=== PATIENT | male | born 1965 | race Caucasian/White ===

== ENCOUNTER 2017-10-16 16:05 | Emergency (ER) | payer MEDICAID ==
[~2017-10-16] VITALS: Ht 172.7 cm; Wt 110.7 kg
[~2017-10-16 16:05] MED LIST: CELEXA20 MG PO; CHEWABLE ASPIRI81 MG PO; DEPAKOTE 500MG500 MG PO; GLUCOTROL10 MG PO; LISINOPRIL2.5 MG PO; METFORMIN1000 MG PO; RISPERDAL 1 MG T1 MG PO
--- OUTSIDE RECORDS SUMMARY | 2017-10-16 16:39 | External Medical Summary Rpt | CCD ---
Author Author , LANCE Organization [facility] Address Unknown Phone [email or web address] Care Team Providers Care Subscription Crew Leader Name Role Phone [facility] Unavailable Unavailable NCE SERV, [facility] Unavailable Unavailable [facility], [facility] [place], NORTON Unavailable Unavailable [facility] Unavailable Unavailable PHARMACY, [facility] MORGAN SEKOU, MORGAN Unavailable Unavailable SEKOU [facility], Unavailable [facility]available [facility] Unavailable Unavailable [facility], [facility] Unavailable Unavailable LAB, [facility] Unavailable Unavailable LAB, [facility] [place] Unavailable Unavailable PHARMACY,, [facility], [facility] DEPT, Unavailable Unavailable [facility] DEPT [facility] # [id number], Unavailable Unavailable [facility] # [id number] [facility] Unavailable Unavailable LLC, [facility] EMMICK ROS, EMMICK Unavailable Unavailable [facility] Unavailable Unavailable DIAGNOSTIC SE, [facility] Unavailable Unavailable [facility]OCIATES, [facility] Unavailable Unavailable TRANSPORTATION SER, [facility], [facility], HAPPY Unavailable Unavailable FEET [facility] Un[facility] Unavailable INC, [facility] Unavailable Unavailable SERVICE, [facility] Unavailable Unavailable DEPT, [facility] COMFORT, COMFORT Unavailable Unavailable [facility] TO Unavailable Unavailable [facility], [facility] Unavailable Unavailable [facility]ING [facility], [facility] Un[facility] Un[facility], [facility] Unavailable Unavailable [facility], [facility] Unavailable Unavailable H D, [facility] Unavailable Unavailable [facility], [facility] Unavailable Unavailable IMAGING, [facility] Unavailable Unavailable LLC, [facility] Unavailable Unavailable [place] AMB Unavailable Unavailable SERVICE [facility] AM[facility] SERVICE I Glenn STEWART, Unavailable Unavailable Glenn STEWART TAWNYA, ROSIO TAWNYA Unavailable Unavailable [facility] Unavailable Unavailable [facility], [facility] DEVELOPER EVANGELIST Unavailable Unavailable [facility], LISA Glasgow [facility] DEVELOPER EVANGELIST [facility] Unavailable Unavailable AM[facility]ANCE [facility], [facility], Unavailable Unavailable [facility] Unavailable Unavailable INCORPORAT, [facility] Unavailable Unavailable [facility], [facility], Unavailable Unavailable [facility] Un[facility] CARE, [facility] SCIFRES, SCIFRES Unavailable Unavailable [facility], Unavailable [facility] Unavailable Un[facility]ANS, [facility] Unavailable Unavailable CAVERN, [facility], Unavailable Unavailable [facility], Unavailable Unavailable DENTAL CLINIC [facility] # Unavailable Unavailable [id number], [facility] # [id number] [id number] # Unavailable Unavailable [id number], [id number] # [id number] [facility] Unavailable Unavailable [facility], [facility] Unavailable Unavailable [facility] Purpose Continuity of Care Document - 12-08-2007 through 2016 Problems Code Diagnosis DOS Provider Status R7301 IMPAIRED 09-18-2017 [facility] GLUCOSE LAB D50.8 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-04-2017 deficiency anemias B351 TINEA 08-28-2017 COMFORT UNGUIUM E1140 TYPE 2 DM 08-28-2017 [facility] WITH DIABETIC NEUROPATHY UNSPECIFIED R65098 PAIN IN 08-28-2017 COMFORT RIGHT TOES G24430 PAIN IN 08-28-2017 COMFORT LEFT TOES R300 DYSURIA 08-14-2017 [facility] R410 DISORIENTAT 07-04-2017 ST [facility] UNSPECIFIED PHYSICIANS R69 ILLNESS 07-04-2017 FEDERATED UNSPECIFIED TRANSPORTAT ION SER E1165 TYPE 2 07-03-2017 [facility] MELL[facility]US [facility] WITH HYPERGLYCEM IA E118 TYPE 2 07-03-2017 [facility] W/UNS COMPLICATIO NS E871 HYPO-OSMOLA 07-03-2017 ST LIT[facility] AND JO[facility] HYPONATREMI PHYSICIANS A E87.1 Hypo-osmola 07-01-2017 lity and hyponatremi a E11.65 Type 2 07-01-2017 diabetes mellitus with hyperglycem ia E11.8 Type 2 07-01-2017 diabetes mellitus with unspecified complicatio ns R4182 ALTERED 07-01-2017 [facility] STATUS OF [facility] UNSPECIFIED R55 SYNCOPE AND 07-01-[address] [facility] Z008 ENCOUNTER 07-01-2017 ST FOR OTHER [facility] EXAMINATION H5213 MYOPIA 05-02-2017 [place] BILATERAL H524 PRESBYOPIA 05-02-2017 SCIFRES E119 TYPE 2 03-02-2017 [facility] WITHOUT COMPLICATIO NS D649 ANEMIA 12-12-2016 [facility] UNSPECIFIED PHYSICIANS [place] Z125 ENCOUNTER 12-12-2016 [facility]CREEN[facility] MALIGNANT LA NEOPLASM PROSTATE R7989 OTHER SPEC 10-19-2016 [facility] ABNORMAL URBAN FINDINGS COG[facility]T BLOOD CHEMISTRY Z23 ENCOUNTER 09-03-2016 [facility] IMMUNIZ[facility] DEPT N E51199 OTHER LONG 08-15-2016 [facility] CURRENT DRUG THERAPY Q78765 TYPE 2 05-04-2016 [facility] DI[facility] AT [facility]ERN W/HYPOGLYCE FERNANDO W/O COMA R4781 SLURRED 05-04-2016 [facility] SPEECH AMBULANCE SERVICE H5203 HYPERMETROP 04-24-2016 MORGAN SEKOU IA BILATERAL B24931 REGULAR 04-24-2016 MORGAN SEKOU ASTIGMATISM BILATERAL E039 HYPOTHYROID 09-29-2015 [facility] UNSPECIFIED N400 BENIGN 09-29-2015 [facility] HYPERPLASIA WO LW URIN TRACT SX Z5181 ENCOUNTER 09-29-2015 [facility] THERAPEUTIC DRUG LEVEL MONITORING 49948 DIAB W/O 06-12-2015 [facility] MENTION COMP TYPE II/UNS TYPE UNCNTRL V701 GENERAL 06-09-2015 [facility] EXAMINATION PHYSICIANS, REQUESTED LL AUTHORITY V5869 LONG-TERM 06-08-2015 [facility] (CURRENT) [facility] USE OF OTHER MEDICATIONS 96570 DIAB W/O 03-08-2015 [facility] COMP TYPE DIAGNOSTICS II/UNS NOT INCORPORAT STATED UNCNTRL 4011 ESSENTIAL 03-08-2015 [facility] HYPERTENSIO [facility]NOST[facility] N, BENIGN INCORPORAT V7644 SPECIAL 03-08-2015 [facility]ING [facility] MALIGNANT INCORPORAT NEOPLASM OF PROSTATE 63488 NUCLEAR 03-03-2015 [facility] SCLEROSIS 3670 HYPERMETROP 03-03-2015 OBED NAJERA IA 3674 PRESBYOPIA 03-03-2015 [facility] 92073 DIAB W/OTH 03-01-2015 ROSIO TAWNYA MANIFESTS TYPE II/UNS TYPE UNCNTRL 85297 DIARRHEA 03-01-2015 ROSIO TAWNYA 64259 UNSPECIFIED 09-29-2014 [facility] DUE TO [facility]IRUSES 71937 HORDEOLUM 09-26-2014 [facility] 70415 DO LOC 08-17-2014 ROSIO TAWNYA HYPERPLASIA PROS W/O UR OBST & OTH LUTS 7241 PAIN IN 08-17-2014 [facility] DIAGNOSTIC SE 7242 LUMBAGO 08-17-2014 ROSIO TAWNYA 58136 UNSPECIFIED 03-02-2014 ROSIO TAWNYA URINARY INCONTINENC E 15065 POLYURIA 03-02-2014 ROSIO TAWNYA 78317 REGULAR 08-25-2013 [facility] ASTIGMATISM 68115 REFRACTIVE 08-25-2013 [facility] AMBLYOPIA 00703 08-25-2013 [facility] V6709 FOLLOW-UP 02-25-2013 DENTAL EXAMINATION CLINIC FOLLOWING OTHER SURGERY 8300 CLOSED 01-27-2013 [place] [facility] 8301 OPEN 01-27-2013 [facility]ENTAL DISLOCATION CLINIC OF JAW V5409 OTH 01-27-2013 [facility] INVOLVING F[facility]ATIO INTERNAL FIXATION DEVICE E8497 PLACE OF 01-20-2013 DENTAL OCCURRENCE CLINIC RESIDENTIAL INSTITUTION E9178 STRIKE 01-20-2013 DENTAL AGNST/STRUC CLINIC K ACC OTH STATNRY OBJ W/FALL 35049 OTHER 11-28-2012 [facility] 7224 DEGENERATIO 11-27-2012 [facility] OF [facility] CERVICAL IMAGING INTERVERTEB RAL DISC 61416 DEGEN 11-27-2012 [facility] LUMBAR/LUMB RADIOLOGY OSACRAL IMAGING INTERVERTEB RAL DISC 7231 CERVICALGIA 11-27-2012 [facility] CTR 7245 UNSPECIFIED 11-27-2012 [facility] BACKACHE RADI[facility] IMAGING 9222 CONTUSION 11-27-2012 REG[facility]AL OF MED CTR ABDOMINAL WALL 9599 INJURY 11-27-2012 MEDICAL OTHER AND CENTER AMB UNSPECIFIED SERVICE I UNSPECIFIED SITE E8859 FALL FROM 11-27-2012 MEDICAL OTHER CENTER AMB SLIPPING SERVICE I TRIPPING OR STUMBLING V741 SCREENING 08-19-2012 [place] [place] EXAMINATION [facility] CO FOR H D PULMONARY TUBERCULOSI S 5180 PULMONARY 07-11-2012 [place] [facility] 7220 DISPLCMT 07-11-2012 [place] [facility] C[facility] INTERVERT [facility] DISC WITHOUT MYELOPATHY 8020 NASAL 07-11-2012 [place] [facility], SERV CLOSED FOUNDATIO FRACTURE 13998 INJURY OF 07-11-2012 [place] [facility] NECK OTHER FOUNDATIO AND UNSPECIFIED 79683 OTHER 07-11-2012 [place] [facility] INJURY OF SERV CHEST WALL FOUNDATIO E9889 INJURY 07-11-2012 [place] [facility] UNSPEC SERV MEANS UNDET FOUNDATIO ACC/PRPOSLY INFLICTED 77840 OTHER 04-05-2012 [facility] ALTERATION CO OF AMBULANCE CONSCIOUSNE TAXIN SS 7813 LACK OF 04-05-2012 [facility] COORDINATIO CO N AMBULANCE TAXIN 460 ACUTE 10-15-2011 [facility] ITIS 5269 UNSPECIFIED 10-12-2011 [facility] DISEASE OF CO THE [facility] AMBULANCE TAXIN 57554 OTHER 10-02-2011 [facility] INC DISORDERS V5489 OTHER 10-02-2011 [facility] 2724 OTHER AND 08-28-2011 COMBINED UNSPECIFIED PHYSICIANS LA HYPERLIPIDE FERNANDO 6019 UNSPECIFIED 08-28-2011 [facility] PROSTATITIS LA 318 OTHER 05-24-2011 JOURNEY TO SPECIFIED INDEPENDENT INTELLECTUA LIVIN L DISABILITIE S 2761 HYPOSMOLALI 05-03-2011 [facility] A 56529 UNSPEC 05-03-2011 [facility] PRIMARY WITHOUT CARE RURAL MENTION INTRACT EPILEPSY 8951 TRAUMATIC 05-03-2011 [facility]E AMBULA NCE COMPLICATED SERV 0091 COLITIS 11-09-2009 [facility] ENTERIT&GAS ASSOC[facility]ATES TROENTERIT INF ORIGIN 295 SCHIZOPHREN 12-08-2007 [facility] [place] DISORDERS 298 OTHER 12-08-2007 [facility] [place] PSYCHOSES 7801 HALLUCINATI 12-08-2007 [facility] FIRE DEPT F25.9 Schizoaffec tive disorder, unspecified R45.1 Restlessnes s and agitation Allergies, Adverse Reactions, Alerts Clinical Alert Notifications Alert Diabetes: no eye exam in the last 365 days Diabetes: no lipid panel in the last 365 days Diabetes: no urine protein screening in the last 365 days Medications Na ND Rx Da Fi Fi Am Da Di Ph RX Ph St me C No te ll ll ou ys ag ar # ys at rm s nt no ma ic us Or Da si cy ia de te s n re d IN 50 10 11 1. 30 00 ME Ac VE 45 -1 -0 50 00 D ti GA 80 1- 3- 0 15 CA ve 56 20 20 09 RE JHA [address] 1 09 PH EN AR NA MA CY 23 4 MG /1 .5 ML BE 00 10 11 60 30 00 ME Ac NZ 60 -0 -0 .0 00 D ti TR 32 6- 3- 00 15 CA ve OP 43 20 20 07 RE IN 73 17 17 18 E 2 83 PH ME AR S MA 0. CY 5 MG TA B PACK 00 09 10 90 30 00 ME Ac LO 37 -2 -2 .0 00 D ti PE 80 8- 7- 00 15 CA ve RI 32 20 20 03 RE DO 70 17 17 51 L 1 50 PH 5 AR MG MA CY TA BL ET DO 45 09 10 60 30 00 ME Ac CU 80 -2 -2 .0 00 D ti SA 20 5- 0- 00 14 CA ve TE 48 20 20 99 RE 67 17 17 95 SO 8 40 PH DI AR UM MA CY 10 0 MG SO FT GE L MA 00 09 10 40 5 00 ME Ac PA 90 -2 -2 .0 00 D ti P 41 5- 0- 00 15 CA ve 32 98 20 20 01 RE 5 26 17 17 07 MG 1 12 PH AR TA MA BL CY ET CI 65 09 10 30 30 00 ME Ac TA 86 -2 -2 .0 00 D ti LO 20 5- 0- 00 14 CA ve DE 00 20 20 99 RE AM 70 17 17 95 5 39 PH HB AR R MA 40 CY MG TA BL ET LI 16 09 10 30 30 00 ME Ac SI 72 -2 -2 .0 00 D ti NO 90 5- 0- 00 14 CA ve DE 37 20 20 99 RE IL 71 17 17 95 7 42 PH 10 AR MA MG CY TA BL ET LE 31 09 10 60 30 00 ME Ac VE 72 -2 -2 .0 00 D ti TI 20 5- 0- 00 14 CA ve RA 53 20 20 99 RE CE 71 17 17 95 TA 2 41 PH M AR 50 MA 0 CY MG TA BL ET LO 00 09 10 30 30 00 ME Ac RA 78 -2 -2 .0 00 D ti TA 15 5- 0- 00 14 CA ve DI 07 20 20 99 RE NE 70 17 17 95 1 43 PH 10 AR MA MG CY TA BL ET RI 00 09 10 60 30 00 ME Ac SP 37 -2 -2 .0 00 D ti ER 83 5- 0- 00 14 CA ve ID 51 20 20 99 RE ON 49 17 17 95 E 1 44 PH 4 AR MG MA CY TA BL ET TR 50 09 10 30 30 00 ME Ac AZ 11 -2 -2 .0 00 D ti OD 10 5- 0- 00 14 CA ve ON 43 20 20 99 RE E 40 17 17 95 10 3 45 PH 0 AR MG MA CY TA BL ET LO 00 09 10 30 10 00 ME Ac PE 09 -2 -2 .0 00 D ti RA 30 6- 0- 00 15 CA ve MO 31 20 20 01 RE DE 10 17 17 94 2 1 61 PH AR MG MA CY CA PS UL E BE 00 09 10 56 28 00 ME Ac NZ 60 -1 -0 .0 00 D ti TR 32 1- 6- 00 14 CA ve OP 43 20 20 92 RE IN 73 17 17 80 E 2 28 PH ME AR S MA 0. CY 5 MG TA B IN 50 09 10 1. 30 00 ME Ac VE 45 -1 -0 50 00 D ti GA 80 3- 6- 0 14 CA ve 56 20 20 85 RE JHA [address] 1 12 PH EN AR NA MA CY 23 4 MG /1 .5 ML PACK 00 09 10 42 28 00 ME Ac LO 37 -1 -0 .0 00 D ti PE 80 1- 6- 00 14 CA ve RI 32 20 20 92 RE DO 70 17 17 80 L 1 26 PH 5 AR MG MA CY TA BL ET LI 43 08 09 30 30 00 ME Ac SI 54 -2 -2 .0 00 D ti NO 70 8- 2- 00 14 CA ve DE 35 20 20 85 RE IL 31 17 17 24 1 89 PH 10 AR MA MG CY TA BL ET LO 00 08 09 30 30 00 ME Ac RA 78 -2 -2 .0 00 D ti TA 15 8- 2- 00 14 CA ve DI 07 20 20 85 RE NE 70 17 17 24 1 90 PH 10 AR MA MG CY TA BL ET RI 00 08 09 60 30 00 ME Ac SP 37 -2 -2 .0 00 D ti ER 83 8- 2- 00 14 CA ve ID 51 20 20 85 RE ON 49 17 17 24 E 1 91 PH 4 AR MG MA CY TA BL ET TR 50 08 09 30 30 00 ME Ac AZ 11 -2 -2 .0 00 D ti OD 10 8- 2- 00 14 CA ve ON 43 20 20 85 RE E 40 17 17 25 10 3 07 PH 0 AR MG MA CY TA BL ET CI 65 08 09 30 30 00 ME Ac TA 86 -2 -2 .0 00 D ti LO 20 8- 2- 00 14 CA ve DE 00 20 20 85 RE AM 70 17 17 24 5 85 PH HB AR R MA 40 CY MG TA BL ET DO 45 08 09 60 30 00 ME Ac CU 80 -2 -2 .0 00 D ti SA 20 8- 2- 00 14 CA ve TE 48 20 20 85 RE 67 17 17 24 SO 8 86 PH DI AR UM MA CY 10 0 MG SO FT GE L LE 31 08 09 60 30 00 ME Ac VE 72 -2 -2 .0 00 D ti TI 20 8- 2- 00 14 CA ve RA 53 20 20 85 RE CE 71 17 17 24 TA 2 87 PH M AR 50 MA 0 CY MG TA BL ET LE 31 08 09 60 30 00 ME Ac VE 72 -0 -0 .0 00 D ti TI 20 4- 1- 00 14 CA ve RA 53 20 20 70 RE CE 71 17 17 64 TA 2 86 PH M AR 50 MA 0 CY MG TA BL ET RI 00 08 09 60 30 00 ME Ac SP 37 -0 -0 .0 00 D ti ER 83 5- 1- 00 14 CA ve ID 51 20 20 72 RE ON 39 17 17 53 E 1 95 PH 3 AR MG MA CY TA BL ET DO 45 08 08 60 30 00 ME Ac CU 80 -0 -2 .0 00 D ti SA 20 2- 5- 00 14 CA ve TE 48 20 20 69 RE 67 17 17 35 SO 8 78 PH DI AR UM MA CY 10 0 MG SO FT GE L AZ 50 07 08 6. 5 00 ME Ac IT 11 -2 -1 00 00 D ti HR 10 4- 8- 0 14 CA ve OM 78 20 20 65 RE YC 75 17 17 41 IN 1 71 PH AR 25 MA 0 CY MG TA BL ET RI 00 07 08 60 30 00 ME Ac SP 37 -2 -1 .0 00 D ti ER 83 1- 8- 00 14 CA ve ID 51 20 20 62 RE ON 49 17 17 70 E 1 20 PH 4 AR MG MA CY TA BL ET OX 00 07 08 60 30 00 ME Ac YB 60 -2 -1 .0 00 D ti UT 34 1- 8- 00 14 CA ve YN 97 20 20 62 RE IN 52 17 17 70 5 8 19 PH AR MG MA CY TA BL ET GL 16 07 08 60 30 00 ME Ac IM 72 -1 -0 .0 00 D ti EP 90 2- 4- 00 14 CA ve IR 00 20 20 56 RE ID 20 17 17 57 E 1 57 PH 2 AR MG MA CY TA BL ET TR 50 07 08 30 30 00 ME Ac AZ 11 -1 -0 .0 00 D ti OD 10 2- 4- 00 14 CA ve ON 44 20 20 56 RE E 10 17 17 57 15 1 56 PH 0 AR MG MA CY TA BL ET CI 65 07 08 30 30 00 ME Ac TA 86 -1 -0 .0 00 D ti LO 20 2- 4- 00 14 CA ve DE 00 20 20 56 RE AM 70 17 17 57 5 54 PH HB AR R MA 40 CY MG TA BL ET DI 00 07 08 60 30 00 ME Ac VA 37 -1 -0 .0 00 D ti LP 80 2- 4- 00 14 CA ve RO 47 20 20 56 RE EX 30 17 17 57 1 55 PH SO AR D MA ER CY 50 0 MG TA B LO 00 07 07 30 30 00 ME Ac RA 78 -0 -2 .0 00 D ti TA 15 4- 8- 00 14 CA ve DI 07 20 20 51 RE NE 70 17 17 30 1 31 PH 10 AR MA MG CY TA BL ET LE 31 07 07 60 30 00 ME Ac VE 72 -0 -2 .0 00 D ti TI 20 5- 8- 00 14 CA ve RA 53 20 20 52 RE CE 71 17 17 32 TA 2 17 PH M AR 50 MA 0 CY MG TA BL ET DO 45 07 07 60 30 00 ME Ac CU 80 -0 -2 .0 00 D ti SA 20 3- 8- 00 14 CA ve TE 48 20 20 50 RE 67 17 17 36 SO 8 69 PH DI AR UM MA CY 10 0 MG SO FT GE L RI 00 06 07 60 30 00 ME Ac SP 37 -2 -1 .0 00 D ti ER 83 1- 4- 00 14 CA ve ID 51 20 20 43 RE ON 49 17 17 23 E 1 62 PH 4 AR MG MA CY TA BL ET OX 00 06 07 60 30 00 ME Ac YB 60 -2 -1 .0 00 D ti UT 34 1- 4- 00 14 CA ve YN 97 20 20 43 RE IN 52 17 17 23 5 8 61 PH AR MG MA CY TA BL ET DI 00 06 07 60 30 00 ME Ac VA 37 -1 -0 .0 00 D ti LP 80 3- 7- 00 14 CA ve RO 47 20 20 37 RE EX 30 17 17 99 1 39 PH SO AR D MA ER CY 50 0 MG TA B CI 65 06 07 30 30 00 ME Ac TA 86 -1 -0 .0 00 D ti LO 20 3- 7- 00 14 CA ve DE 00 20 20 37 RE AM 70 17 17 99 5 38 PH HB AR R MA 40 CY MG TA BL ET GL 16 06 07 60 30 00 ME Ac IM 72 -1 -0 .0 00 D ti EP 90 3- 7- 00 14 CA ve IR 00 20 20 37 RE ID 20 17 17 99 E 1 41 PH 2 AR MG MA CY TA BL ET TR 50 06 07 30 30 00 ME Ac AZ 11 -1 -0 .0 00 D ti OD 10 3- 7- 00 14 CA ve ON 44 20 20 37 RE E 10 17 17 99 15 1 40 PH 0 AR MG MA CY TA BL ET IB 55 06 06 90 30 00 ME Ac UP 11 -0 -3 .0 00 D ti RO 10 7- 0- 00 14 CA ve FE 68 20 20 33 RE N 40 17 17 62 80 5 06 PH 0 AR MG MA CY TA BL ET LO 00 06 06 30 30 00 ME Ac RA 78 -0 -3 .0 00 D ti TA 15 7- 0- 00 14 CA ve DI 07 20 20 30 RE NE 70 17 17 88 1 82 PH 10 AR MA MG CY TA BL ET OX 00 05 06 60 30 00 ME Ac YB 60 -2 -1 .0 00 D ti UT 34 4- 6- 00 14 CA ve YN 97 20 20 23 RE IN 52 17 17 89 5 8 40 PH AR MG MA CY TA BL ET DO 45 05 06 60 30 00 ME Ac CU 80 -2 -1 .0 00 D ti SA 20 4- 6- 00 14 CA ve TE 48 20 20 23 RE 67 17 17 89 SO 8 39 PH DI AR UM MA CY 10 0 MG SO FT GE L RI 00 05 06 60 30 00 ME Ac SP 37 -2 -1 .0 00 D ti ER 83 4- 6 00 14 CA ve ID 51 20 20 23 RE ON 49 17 17 89 E 1 41 PH 4 AR MG MA CY TA BL ET CI 65 05 06 30 30 00 ME Ac TA 86 -1 -0 .0 00 D ti LO 20 - 14 CA ve DE 00 20 20 19 RE AM 70 17 17 14 5 32 PH HB AR R MA 40 CY MG TA BL ET TR 50 05 06 30 30 00 ME Ac AZ 11 -1 -0 .0 00 D ti OD 10 14 CA ve ON 44 20 20 19 RE E 10 17 17 14 15 1 34 PH 0 AR MG MA CY TA BL ET GL 16 05 06 60 30 00 ME Ac IM 72 -1 -0 .0 00 D ti EP 90 14 CA ve IR 00 20 20 19 RE ID 20 17 17 14 E 1 35 PH 2 AR MG MA CY TA BL ET LO 00 05 06 30 30 00 ME Ac RA 78 -1 -0 .0 00 D ti TA 15 14 CA ve DI 07 20 20 19 RE NE 70 17 17 14 1 36 PH 10 AR MA MG CY TA BL ET DI 00 05 06 60 30 00 ME Ac VA 37 -1 -0 .0 00 D ti LP 80 9 14 CA ve RO 47 20 20 19 RE EX 30 17 17 14 1 33 PH SO AR D MA ER CY 50 0 MG TA B LE 31 05 06 60 30 00 ME Ac VE 72 -1 -0 .0 00 D ti TI 20 14 CA ve RA 53 20 20 20 RE CE 70 17 17 98 TA 5 46 PH M AR 50 MA 0 CY MG TA BL ET IB 55 05 06 90 30 00 ME Ac UP 11 -0 -0 .0 00 D ti RO 10 9- 2- 00 14 CA ve FE 68 20 20 16 RE N 40 17 17 93 80 5 66 PH 0 AR MG MA CY TA BL ET DO 45 04 05 60 30 00 ME Ac CU 80 -2 -1 .0 00 D ti SA 20 14 CA ve TE 48 20 20 08 RE 67 17 17 91 SO 8 09 PH DI AR UM MA CY 10 0 MG SO FT GE L OX 00 04 05 60 30 00 ME Ac YB 60 -2 -1 .0 00 D ti UT 34 5- 9- 00 14 CA ve YN 97 20 20 08 RE IN 52 17 17 91 5 8 10 PH AR MG MA CY TA BL ET RI 00 04 05 60 30 00 ME Ac SP 37 -2 -1 .0 00 D ti ER 83 5- 9- 00 14 CA ve ID 51 20 20 08 RE ON 49 17 17 91 E 1 11 PH 4 AR MG MA CY TA BL ET LE 31 04 05 60 30 00 ME Ac VE 72 -1 -1 .0 00 D ti TI 20 9- 2- 00 14 CA ve RA 53 20 20 06 RE CE 70 17 17 35 TA 5 68 PH M AR 50 MA 0 CY MG TA BL ET GL 16 04 05 60 30 00 ME Ac IM 72 -1 -1 .0 00 D ti EP 90 7- 2- 00 14 CA ve IR 00 20 20 06 RE ID 20 17 17 27 E 1 59 PH 2 AR MG MA CY TA BL ET CI 65 04 05 30 30 00 ME Ac TA 86 -1 -1 .0 00 D ti LO 20 7- 2- 00 14 CA ve DE 00 20 20 06 RE AM 70 17 17 27 5 57 PH HB AR R MA 40 CY MG TA BL ET DI 00 04 05 60 30 00 ME Ac VA 37 -1 -1 .0 00 D ti LP 80 7- 2- 00 14 CA ve RO 47 20 20 06 RE EX 30 17 17 26 1 95 PH SO AR D MA ER CY 50 0 MG TA B LO 00 04 05 30 30 00 ME Ac RA 78 -1 -1 .0 00 D ti TA 15 7- 2- 00 14 CA ve DI 07 20 20 06 RE NE 70 17 17 26 1 79 PH 10 AR MA MG CY TA BL ET TR 50 04 05 30 30 00 ME Ac AZ 11 -1 -1 .0 00 D ti OD 10 7- 2- 00 14 CA ve ON 44 20 20 06 RE E 10 17 17 26 15 1 96 PH 0 AR MG MA CY TA BL ET IB 55 04 05 90 30 00 ME Ac UP 11 -1 -0 .0 00 D ti RO 10 1- 5- 00 14 CA ve FE 68 20 20 02 RE N 40 17 17 06 80 5 40 PH 0 AR MG MA CY TA BL ET DI 00 03 04 60 30 00 ME Ac VA 37 -2 -2 .0 00 D ti LP 80 3- 1- 00 13 CA ve RO 47 20 20 94 RE EX 30 17 17 26 1 04 PH SO AR D MA ER CY 50 0 MG TA B LO 00 03 04 30 30 00 ME Ac RA 78 -2 -2 .0 00 D ti TA 15 3- - 00 13 CA ve DI 07 20 20 94 RE NE 70 17 17 26 1 02 PH 10 AR MA MG CY TA BL ET TR 50 03 04 30 30 00 ME Ac AZ 11 -2 -2 .0 00 D ti OD 10 3- 1- 00 13 CA ve ON 44 20 20 94 RE E 10 17 17 26 15 1 07 PH 0 AR MG MA CY TA BL ET GL 16 03 04 60 30 00 ME Ac IM 72 -2 -2 .0 00 D ti EP 90 3- 00 13 CA ve IR 00 20 20 94 RE ID 20 17 17 26 E 1 10 PH 2 AR MG MA CY TA BL ET LE 31 03 04 60 30 00 ME Ac VE 72 -2 -2 .0 00 D ti TI 20 3- 00 13 CA ve RA 53 20 20 94 RE CE 70 17 17 26 TA 5 13 PH M AR 50 MA 0 CY MG TA BL ET OX 00 03 04 60 30 00 ME Ac YB 60 -2 -2 .0 00 D ti UT 34 7- 1- 00 13 CA ve YN 97 20 20 94 RE IN 52 17 17 64 5 8 58 PH AR MG MA CY TA BL ET RI 00 03 04 60 30 00 ME Ac SP 37 -2 -2 .0 00 D ti ER 83 7- 1- 00 13 CA ve ID 51 20 20 94 RE ON 49 17 17 64 E 1 59 PH 4 AR MG MA CY TA BL ET DO 45 03 04 60 30 00 ME Ac CU 80 -2 -2 .0 00 D ti SA 20 7 1 13 CA ve TE 48 20 20 94 RE 67 17 17 64 SO 8 57 PH DI AR UM MA CY 10 0 MG SO FT GE L CI 65 03 04 30 30 00 ME Ac TA 86 -2 -1 .0 00 D ti LO 20 1- 4- 00 13 CA ve DE 00 20 20 91 RE AM 70 17 17 76 5 89 PH HB AR R MA 40 CY MG TA BL ET IB 55 03 04 90 30 00 ME Ac UP 11 -1 -0 .0 00 D ti RO 10 5- 7- 00 13 CA ve FE 68 20 20 90 RE N 40 17 17 00 80 5 43 PH 0 AR MG MA CY TA BL ET DI 00 02 03 60 30 00 ME Ac VA 37 -2 -2 .0 00 D ti LP 80 7- 4- 00 13 CA ve RO 47 20 20 81 RE EX 30 17 17 35 1 51 PH SO AR D MA ER CY 50 0 MG TA B GL 16 02 03 60 30 00 ME Ac IM 72 -2 -2 .0 00 D ti EP 90 7- 4 13 CA ve IR 00 20 20 81 RE ID 20 17 17 35 E 1 43 PH 2 AR MG MA CY TA BL ET ME 65 02 03 30 30 00 ME Ac TF 86 -2 -2 .0 00 D ti OR 20 7- 4 13 CA ve MO 00 20 20 81 RE N 89 17 17 35 HC 9 36 PH L AR 50 MA 0 CY MG TA BL ET TR 50 02 03 30 30 00 ME Ac AZ 11 -2 -2 .0 00 D ti OD 10 7- 4 13 CA ve ON 44 20 20 81 RE E 10 17 17 35 15 1 48 PH 0 AR MG MA CY TA BL ET LE 31 02 03 60 30 00 ME Ac VE 72 -2 -2 .0 00 D ti TI 20 7 4 13 CA ve RA 53 20 20 81 RE CE 70 17 17 35 TA 5 46 PH M AR 50 MA 0 CY MG TA BL ET LO 00 02 03 30 30 00 ME Ac RA 78 -2 -2 .0 00 D ti TA 15 7 4 13 CA ve DI 07 20 20 81 RE NE 70 17 17 35 1 40 PH 10 AR MA MG CY TA BL ET RI 00 02 03 60 30 00 ME Ac SP 37 -2 -2 .0 00 D ti ER 83 8- 4- 00 13 CA ve ID 51 20 20 82 RE ON 49 17 17 24 E 1 67 PH 4 AR MG MA CY TA BL ET OX 00 02 03 60 30 00 ME Ac YB 60 -2 -2 .0 00 D ti UT 34 8- 4- 00 13 CA ve YN 97 20 20 82 RE IN 52 17 17 24 5 8 69 PH AR MG MA CY TA BL ET DO 45 02 03 60 30 00 ME Ac CU 80 -2 -2 .0 00 D ti SA 20 8- 4- 00 13 CA ve TE 48 20 20 82 RE 67 17 17 24 SO 8 64 PH DI AR UM MA CY 10 0 MG SO FT GE L CI 65 02 03 30 30 00 ME Ac TA 86 -2 -1 .0 00 D ti LO 20 0- 7- 00 13 CA ve DE 00 20 20 77 RE AM 70 17 17 11 5 29 PH HB AR R MA 40 CY MG TA BL ET IB 55 02 03 90 30 00 ME Ac UP 11 -1 -1 .0 00 D ti RO 10 7- 7- 00 13 CA ve FE 68 20 20 76 RE N 40 17 17 38 80 5 13 PH 0 AR MG MA CY TA BL ET DI 16 01 03 60 30 00 ME Ac VA 71 -0 -0 .0 00 D ti LP 40 2- 3- 00 13 CA ve RO 48 20 20 52 RE EX 50 17 17 99 2 77 PH SO AR D MA ER CY 50 LL 0 C MG TA B TR 50 01 03 30 30 00 ME Ac AZ 11 -0 -0 .0 00 D ti OD 10 2- 3- 00 13 CA ve ON 44 20 20 52 RE E 10 17 17 99 15 1 78 PH 0 AR MG MA CY TA BL LL ET C GL 16 01 03 60 30 00 ME Ac IM 72 -0 -0 .0 00 D ti EP 90 2- 3- 00 13 CA ve IR 00 20 20 52 RE ID 20 17 17 99 E 1 80 PH 2 AR MG MA CY TA BL LL ET C LE 31 01 03 60 30 00 ME Ac VE 72 -0 -0 .0 00 D ti TI 20 2- 3- 00 13 CA ve RA 53 20 20 52 RE CE 71 17 17 99 TA 2 81 PH M AR 50 MA 0 CY MG LL TA C BL ET LO 00 01 03 30 30 00 ME Ac RA 78 -0 -0 .0 00 D ti TA 15 2- 3- 00 13 CA ve DI 07 20 20 52 RE NE 70 17 17 99 1 82 PH 10 AR MA MG CY TA LL BL C ET ME 65 01 03 30 30 00 ME Ac TF 86 -0 -0 .0 00 D ti OR 20 2- 3- 00 13 CA ve MO 00 20 20 52 RE N 89 17 17 99 HC 9 83 PH L AR 50 MA 0 CY MG LL TA C BL ET OX 00 01 03 60 30 00 ME Ac YB 60 -0 -0 .0 00 D ti UT 34 2- 3- 00 13 CA ve YN 97 20 20 52 RE IN 52 17 17 99 5 8 84 PH AR MG MA CY TA BL LL ET C RI 00 01 03 60 30 00 ME Ac SP 37 -0 -0 .0 00 D ti ER 83 2- 3- 00 13 CA ve ID 51 20 20 52 RE ON 49 17 17 99 E 1 85 PH 4 AR MG MA CY TA BL LL ET C DO 45 01 03 60 30 00 ME Ac CU 80 -0 -0 .0 00 D ti SA 20 2- 3 00 13 CA ve TE 48 20 20 52 RE 67 17 17 99 SO 8 79 PH DI AR UM MA CY 10 0 LL MG C SO FT GE L DI 16 02 02 60 30 00 ME Ac VA 71 -0 -2 .0 00 D ti LP 40 4 13 CA ve RO 48 20 20 68 RE EX 50 17 17 09 2 85 PH SO AR D MA ER CY 50 0 MG TA B GL 16 02 02 60 30 00 ME Ac IM 72 -0 -2 .0 00 D ti EP 90 13 CA ve IR 00 20 20 68 RE ID 20 17 17 09 E 1 88 PH 2 AR MG MA CY TA BL ET DO 45 02 02 60 30 00 ME Ac CU 80 -0 -2 .0 00 D ti SA 20 13 CA ve TE 48 20 20 68 RE 67 17 17 09 SO 8 87 PH DI AR UM MA CY 10 0 MG SO FT GE L TR 50 02 02 30 30 00 ME Ac AZ 11 -0 -2 .0 00 D ti OD 10 1 13 CA ve ON 44 20 20 68 RE E 10 17 17 09 15 1 86 PH 0 AR MG MA CY TA BL ET LO 00 02 02 30 30 00 ME Ac RA 78 -0 -2 .0 00 D ti TA 15 1 4- 00 13 CA ve DI 07 20 20 68 RE NE 70 17 17 09 1 90 PH 10 AR MA MG CY TA BL ET ME 65 02 02 30 30 00 ME Ac TF 86 -0 -2 .0 00 D ti OR 20 4 13 CA ve MO 00 20 20 68 RE N 89 17 17 09 HC 9 91 PH L AR 50 MA 0 CY MG TA BL ET RI 00 02 02 60 30 00 ME Ac SP 37 -0 -2 .0 00 D ti ER 83 1- 4- 00 13 CA ve ID 51 20 20 68 RE ON 49 17 17 09 E 1 93 PH 4 AR MG MA CY TA BL ET OX 00 02 02 60 30 00 ME Ac YB 60 -0 -2 .0 00 D ti UT 34 13 CA ve YN 97 20 20 68 RE IN 52 17 17 09 5 8 92 PH AR MG MA CY TA BL ET LE 31 02 02 60 30 00 ME Ac VE 72 -0 -2 .0 00 D ti TI 20 1- 4- 00 13 CA ve RA 53 20 20 68 RE CE 70 17 17 09 TA 5 89 PH M AR 50 MA 0 CY MG TA BL ET CI 65 01 02 30 30 00 ME Ac TA 86 -2 -1 .0 00 D ti LO 20 4- 7- 00 13 CA ve DE 00 20 20 64 RE AM 70 17 17 97 5 20 PH HB AR R MA 40 CY MG LL C TA BL ET IB 55 01 02 90 30 00 ME Ac UP 11 -1 -1 .0 00 D ti RO 10 9- 0- 00 13 CA ve FE 68 20 20 62 RE N 40 17 17 06 80 5 73 PH 0 AR MG MA CY TA BL ET DI 16 12 01 60 30 00 ME Ac VA 71 -0 -2 .0 00 D ti LP 40 5- 7- 00 13 CA ve RO 48 20 20 40 RE EX 50 16 17 45 2 72 PH SO AR D MA ER CY 50 LL 0 C MG TA B OX 00 12 01 60 30 00 ME Ac YB 60 -0 -2 .0 00 D ti UT 34 5- 7- 00 13 CA ve YN 97 20 20 40 RE IN 52 16 17 45 5 8 82 PH AR MG MA CY TA BL LL ET C RI 00 12 01 60 30 00 ME Ac SP 37 -0 -2 .0 00 D ti ER 83 5- 7- 00 13 CA ve ID 51 20 20 40 RE ON 49 16 17 45 E 1 84 PH 4 AR MG MA CY TA BL LL ET C LA 00 12 01 47 [address] 60 -2 -2 3. 00 D ti UL 31 0- 7- 00 13 CA ve OS 37 20 20 0 48 RE E 85 16 17 26 10 8 27 PH AR GM MA /1 CY 5 ML LL C SO MARINA TI ON IB 55 12 01 90 30 00 ME Ac UP 11 -2 -2 .0 00 D ti RO 10 2- 7- 00 13 CA ve FE 68 20 20 49 RE N 40 16 17 12 80 5 12 PH 0 AR MG MA CY TA BL LL ET C CI 65 12 01 30 30 00 ME Ac TA 86 -3 -2 .0 00 D ti LO 20 0- 7- 00 13 CA ve DE 00 20 20 52 RE AM 70 16 17 83 5 78 PH HB AR R MA 40 CY MG LL C TA BL ET TR 50 12 01 30 30 00 ME Ac AZ 11 -0 -2 .0 00 D ti OD 10 5- 7- 00 13 CA ve ON 44 20 20 40 RE E 10 16 17 45 15 1 74 PH 0 AR MG MA CY TA BL LL ET C DO 45 12 01 60 30 00 ME Ac CU 80 -0 -2 .0 00 D ti SA 20 5- 7- 00 13 CA ve TE 48 20 20 40 RE 67 16 17 45 SO 8 75 PH DI AR UM MA CY 10 0 LL MG C SO FT GE L GL 16 12 01 60 30 00 ME Ac IM 72 -0 -2 .0 00 D ti EP 90 5 7 00 13 CA ve IR 00 20 20 40 RE ID 20 16 17 45 E 1 76 PH 2 AR MG MA CY TA BL LL ET C LE 31 12 60 30 00 ME Ac VE 72 -0 -2 .0 00 D ti TI 20 5- 7 00 13 CA ve RA 53 20 20 40 RE CE 71 16 17 45 TA 2 77 PH M AR 50 MA 0 CY MG LL TA C BL ET LO 00 12 01 30 30 00 ME Ac RA 78 -0 -2 .0 00 D ti TA 15 5- 7- 00 13 CA ve DI 07 20 20 40 RE NE 70 16 17 45 1 78 PH 10 AR MA MG CY TA LL BL C ET ME 65 12 01 30 30 00 ME Ac TF 86 -0 -2 .0 00 D ti OR 20 5- 7- 00 13 CA ve MO 00 20 20 40 RE N 89 16 17 45 HC 9 80 PH L AR 50 MA 0 CY MG LL TA C BL ET LE 68 04 06 0 60 30 ME 31 ON Ac VE 00 -1 -2 0. D 03 AN ti TI 10 8- 6- 00 CA 66 ve RA 11 20 20 0 RE 01 DE CE 70 15 15 LAUREN TA 3 PH RA M AR H 50 MA A 0 CY MG LL TA C BL GL ET GO W DI 29 04 06 0 60 30 ME 31 ON Ac VA 30 -1 -2 0. D 03 AN ti LP 00 8- 6- 00 CA 66 ve RO 13 20 20 0 RE 00 DE EX 90 15 15 LAUREN 5 PH RA SO AR H D MA A DR CY 25 LL 0 C MG GL TA GO B W CI 65 06 06 0 30 6 ME 31 ON Ac TA 16 -1 -2 .0 D 02 AN ti LO 20 7- 4- 00 CA 08 ve DE 05 20 20 RE 89 DE AM 25 15 15 LAUREN 0 PH RA HB AR H R MA A 10 CY MG LL C TA GL BL ET GO W NO 00 02 06 0 30 30 ME 30 ON Ac VO 16 -0 -2 .0 D 69 AN ti LO 93 4- 3- 00 CA 47 ve G 69 20 20 RE 37 DE MO 61 15 15 LAUREN X 9 PH RA 70 AR H -3 MA A 0 CY FL EX LL PE C N GL SY RN GO W DE 00 04 06 0 20 14 ME 31 ON Ac OM 59 -0 -2 0. D 02 AN ti ET 15 1- 2- 00 CA 85 ve PACK 30 20 20 0 RE 04 DE ZI 71 15 15 LAUREN NE 0 PH RA AR H 25 MA A CY MG LL TA C BL GL ET GO W IB 53 06 06 0 30 10 ME 31 ON Ac UP 74 -2 -2 0. D 02 AN ti RO 60 2- 2- 00 CA 81 ve FE 46 20 20 0 RE 90 DE N 60 15 15 LAUREN 80 5 PH RA 0 AR H MG MA A CY TA BL LL ET C GL GO W EA 08 02 06 11 10 50 CO 51 ON Ac SY 49 -2 -2 00 MM 17 AN ti 62 0- 2- .0 ON 75 ve TO 81 20 20 00 WE DE UC 80 15 15 AL LAUREN H 1 TH RA SA H FE FA A TY MO LY 28 G PH LA AR NC MA ET CY S , MU 45 06 06 0 22 5 ME 31 ON Ac PI 80 -1 -1 0. D 02 AN ti RO 20 9- 9- 00 CA 54 ve CI 11 20 20 0 RE 00 DE N 22 15 15 LAUREN 2% 2 PH RA AR H OI MA A NT CY ME NT LL C GL GO W HY 00 06 06 0 30 [address] 59 -1 -1 0. D 02 AN ti OC 13 9- 9- 00 CA 55 ve OD 20 20 20 0 RE 90 DE ON 20 15 15 LAUREN -A 5 PH RA CE AR H TA MA A MO CY NO PH LL EN C GL 5- 32 GO 5 W VE 68 06 06 0 12 12 ME 31 ON Ac NL 38 -1 -1 0. D 02 AN ti AF 20 7- 7- 00 CA 08 ve AX 03 20 20 0 RE 82 DE IN 51 15 15 LAUREN E 6 PH RA HC AR H L MA A ER CY 75 LL C MG GL CA GO P W CI 00 06 06 0 70 7 ME 31 ON Ac TA 90 -1 -1 .0 D 02 AN ti LO 46 7- 7- 00 CA 08 ve DE 08 20 20 RE 83 DE AM 56 15 15 LAUREN 1 PH RA HB AR H R MA A 20 CY MG LL C TA GL BL ET GO W LE 00 01 06 0 30 15 ME 31 ON Ac VE 16 -2 -1 .0 D 00 AN ti MO 96 3- 4- 00 CA 30 ve R 43 20 20 RE 17 DE FL 81 15 15 LAUREN EX 0 PH RA TO AR H UC MA A H CY 10 0 LL UN C IT GL S/ ML GO W GL 55 01 06 0 30 30 ME 31 ON Ac IM 11 -2 -1 0. D 00 AN ti EP 10 1- 2- 00 CA 42 ve IR 32 20 20 0 RE 23 DE ID 20 15 15 LAUREN E 1 PH RA 4 AR H MG MA A CY TA BL LL ET C GL GO W DI 29 04 06 0 60 30 ME 31 ON Ac VA 30 -1 -1 0. D 00 AN ti LP 00 8- 2- 00 CA 41 ve RO 14 20 20 0 RE 99 DE EX 00 15 15 LAUREN 5 PH RA SO AR H D MA A DR CY 50 LL 0 C MG GL TA GO B W VE 51 10 06 0 30 30 ME 31 ON Ac SI 24 -0 -1 0. D 00 AN ti CA 80 1- 2- 00 CA 42 ve RE 15 20 20 0 RE 16 DE 10 14 15 LAUREN 10 3 PH RA AR H MG MA A CY TA BL LL ET C GL GO W RI 27 04 06 0 60 30 ME 31 ON Ac SP 24 -1 -1 0. D 00 AN ti ER 10 2- 2- 00 CA 42 ve ID 00 20 20 0 RE 00 DE ON 45 15 15 LAUREN E 0 PH RA 2 AR H MG MA A CY TA BL LL ET C GL GO W ME 53 05 06 0 30 30 ME 30 ON Ac TF 74 -1 -1 0. D 99 AN ti OR 60 3- 1- 00 CA 97 ve MO 17 20 20 0 RE 44 DE N 80 15 15 LAUREN HC 5 PH RA L AR H ER MA A CY 50 0 LL MG C GL TA BL GO ET W ME 68 05 06 0 30 30 ME 30 ON Ac LO 38 -1 -1 0. D 99 AN ti XI 20 3- 0- 00 CA 57 ve CA 05 20 20 0 RE 01 DE M 00 15 15 LAUREN 7. 5 PH RA 5 AR H MG MA A CY TA BL LL ET C GL GO W CI 65 12 06 0 60 6 ME 30 ON Ac TA 16 -1 -0 .0 D 98 AN ti LO 20 5- 5- 00 CA 66 ve DE 05 20 20 RE 91 DE AM 45 14 15 LAUREN 0 PH RA HB AR H R MA A 40 CY MG LL C TA GL BL ET GO W DE 00 04 06 0 20 14 ME 30 ON Ac OM 59 -0 -0 0. D 98 AN ti ET 15 1- 3- 00 CA 74 ve PACK 30 20 20 0 RE 63 DE ZI 71 15 15 LAUREN NE 0 PH RA AR H 25 MA A CY MG LL TA C BL GL ET GO W MA 00 04 06 0 30 5 ME 30 ON Ac PA 90 -0 -0 0. D 98 AN ti P 41 1- 3- 00 CA 74 ve 50 98 20 20 0 RE 78 DE 0 86 15 15 LAUREN MG 1 PH RA AR H TA MA A BL CY ET LL C GL GO W NO 00 05 06 0 12 30 ME 30 ON Ac VO 16 -0 -0 00 D 98 AN ti FI 91 4- 3- .0 CA 74 ve NE 85 20 20 00 RE 79 DE 27 15 15 LAUREN AU 5 PH RA TO AR H CO MA A VE CY R 30 LL G C NE GL ED LE GO W DI 00 04 06 0 20 5 ME 30 ON Ac PH 60 -0 -0 0. D 98 AN ti EN 33 1- 3- 00 CA 74 ve HY 33 20 [address] 93 15 15 LAUREN AM 2 PH RA IN AR H E MA A 25 CY MG LL C CA GL PS UL GO E W LE 00 01 06 0 30 15 ME 30 ON Ac VE 16 -2 -0 .0 D 96 AN ti MO 96 3- 2- 00 CA 06 ve R 43 20 20 RE 47 DE FL 81 15 15 LAUREN EX 0 PH RA TO AR H UC MA A H CY 10 0 LL UN C IT GL S/ ML GO W LE 68 04 05 0 60 30 ME 30 ON Ac VE 00 -1 -2 0. D 96 AN ti TI 10 8- 9- 00 CA 98 ve RA 11 20 20 0 RE 87 DE CE 70 15 15 LAUREN TA 3 PH RA M AR H 50 MA A 0 CY MG LL TA C BL GL ET GO W DI 29 04 05 0 60 30 ME 30 ON Ac VA 30 -1 -2 0. D 96 AN ti LP 00 8- 9- 00 CA 98 ve RO 13 20 20 0 RE 86 DE EX 90 15 15 LAUREN 5 PH RA SO AR H D MA A DR CY 25 LL 0 C MG GL TA GO B W ON 53 02 05 11 10 50 CO 51 ON Ac ET 88 -2 -2 00 MM 17 AN ti OU 50 0- 6- .0 ON 74 ve CH 24 20 20 00 WE DE 45 15 15 AL LAUREN UL 0 TH RA TR H A FA A TE MO ST LY ST PH RI AR PS MA CY , LE 00 01 05 0 30 15 ME 30 ON Ac VE 16 -2 -1 .0 D 94 AN ti MO 96 3- 8- 00 CA 52 ve R 43 20 20 RE 32 DE FL 81 15 15 LAUREN EX 0 PH RA TO AR H UC MA A H CY 10 0 LL UN C IT GL S/ ML GO W VE 51 10 05 0 24 24 ME 30 ON Ac SI 24 -0 -1 0. D 93 AN ti CA 80 1- 5- 00 CA 67 ve RE 15 20 20 0 RE 16 DE 10 14 15 LAUREN 10 3 PH RA AR H MG MA A CY TA BL LL ET C GL GO W RI 27 04 05 0 47 24 ME 30 ON Ac SP 24 -1 -1 0. D 93 AN ti ER 10 2- 5- 00 CA 67 ve ID 00 20 20 0 RE 03 DE ON 45 15 15 LAUREN E 0 PH RA 2 AR H MG MA A CY TA BL LL ET C GL GO W DI 29 04 05 0 60 30 ME 30 ON Ac VA 30 -1 -1 0. D 93 AN ti LP 00 8- 5- 00 CA 67 ve RO 14 20 20 0 RE 02 DE EX 00 15 15 LAUREN 5 PH RA SO AR H D MA A DR CY 50 LL 0 C MG GL TA GO B W GL 55 01 05 0 30 30 ME 30 ON Ac IM 11 -2 -1 0. D 93 AN ti EP 10 1- 5- 00 CA 67 ve IR 32 20 20 0 RE 27 DE ID 20 15 15 LAUREN E 1 PH RA 4 AR H MG MA A CY TA BL LL ET C GL GO W ME 68 05 05 0 30 30 ME 30 ON Ac LO 38 -1 -1 0. D 93 AN ti XI 20 3- 3- 00 CA 52 ve CA 05 20 20 0 RE 88 DE M 00 15 15 LAUREN 7. 5 PH RA 5 AR H MG MA A CY TA BL LL ET C GL GO W ME 53 05 05 0 31 30 ME 30 ON Ac TF 74 -1 -1 0. D 93 AN ti OR 60 3- 3- 00 CA 52 ve MO 17 20 20 0 RE 86 DE N 80 15 15 LAUREN HC 5 PH RA L AR H ER MA A CY 50 0 LL MG C GL TA BL GO ET W LO 00 04 05 0 30 5 ME 30 ON Ac PE 09 -0 -1 0. D 93 AN ti RA 30 1- 2- 00 CA 19 ve MO 31 20 20 0 RE 01 DE DE 10 15 15 LAUREN 2 5 PH RA AR H MG MA A CY CA PS LL UL C E GL GO W CI 65 12 05 0 30 30 ME 30 ON Ac TA 16 -1 -0 0. D 91 AN ti LO 20 5- 8- 00 CA 99 ve DE 05 20 20 0 RE 01 DE AM 45 14 15 LAUREN 0 PH RA HB AR H R MA A 40 CY MG LL C TA GL BL ET GO W LE 00 01 05 0 30 15 ME 30 ON Ac VE 16 -2 -0 .0 D 91 AN ti MO 96 3- 6- 00 CA 80 ve R 43 20 20 RE 49 DE FL 81 15 15 LAUREN EX 0 PH RA TO AR H UC MA A H CY 10 0 LL UN C IT GL S/ ML GO W IB 53 04 05 0 20 5 ME 30 ON Ac UP 74 -0 -0 0. D 91 AN ti RO 60 1- 6- 00 CA 80 ve FE 46 20 20 0 RE 93 DE N 40 15 15 LAUREN 40 5 PH RA 0 AR H MG MA A CY TA BL LL ET C GL GO W NO 00 05 05 0 12 30 ME 30 ON Ac VO 16 -0 -0 00 D 91 AN ti FI 91 4- 4- .0 CA 22 ve NE 85 20 20 00 RE 38 DE 27 15 15 LAUREN AU 5 PH RA TO AR H CO MA A VE CY R 30 LL G C NE GL ED LE GO W EA 08 02 05 11 10 50 CO 51 ON Ac SY 49 -2 -0 00 MM 17 AN ti 62 0- 2- .0 ON 75 ve TO 81 20 20 00 WE DE UC 80 15 15 AL LAUREN H 1 TH RA SA H FE FA A TY MO LY 28 G PH LA AR NC MA ET CY S , DI 29 04 05 0 60 30 ME 30 ON Ac VA 30 -1 -0 0. D 90 AN ti LP 00 8- 1- 00 CA 03 ve RO 13 20 20 0 RE 78 DE EX 90 15 15 LAUREN 5 PH RA SO AR H D MA A DR CY 25 LL 0 C MG GL TA GO B W LE 68 04 05 0 60 30 ME 30 ON Ac VE 00 -1 -0 0. D 90 AN ti TI 10 8- 1- 00 CA 03 ve RA 11 20 20 0 RE 79 DE CE 70 15 15 LAUREN TA 3 PH RA M AR H 50 MA A 0 CY MG LL TA C BL GL ET GO W ME 53 04 04 0 22 11 ME 30 ON Ac TF 74 -0 -2 0. D 89 AN ti OR 60 00 CA 39 ve MO 17 20 20 0 RE 95 DE N 90 15 15 LAUREN HC 1 PH RA L AR H ER MA A CY 75 0 LL MG C GL TA BL GO ET W MA 00 04 04 0 30 5 ME 30 ON Ac PA 90 -0 -2 0. D 89 AN ti P 41 1- 7- 00 CA 55 ve 50 98 20 20 0 RE 83 DE 0 86 15 15 LAUREN MG 1 PH RA AR H TA MA A BL CY ET LL C GL GO W RI 27 04 04 0 60 30 ME 30 ON Ac SP 24 -1 -1 0. D 86 AN ti ER 10 2- 7- 00 CA 80 ve ID 00 20 20 0 RE 33 DE ON 45 15 15 LAUREN E 0 PH RA 2 AR H MG MA A CY TA BL LL ET C GL GO W DI 29 04 04 0 60 30 ME 30 ON Ac VA 30 -1 -1 0. D 86 AN ti LP 00 8 7- 00 CA 80 ve RO 14 20 20 0 RE 32 DE EX 00 14 15 LAUREN 5 PH RA SO AR H D MA A DR CY 50 LL 0 C MG GL TA GO B W GL 00 01 04 0 30 30 ME 30 ON Ac IM 09 2 -1 0. D 86 AN ti EP 37 1- 7- 00 CA 61 ve IR 25 20 20 0 RE 46 DE ID 60 15 15 LAUREN E 1 PH RA 4 AR H MG MA A CY TA BL LL ET C GL GO W VE 51 10 04 0 30 30 ME 30 ON Ac SI 24 -0 -1 0. D 86 AN ti CA 80 1- 7- 00 CA 80 ve RE 15 20 20 0 RE 46 DE 10 14 15 LAUREN 10 3 PH RA AR H MG MA A CY TA BL LL ET C GL GO W IB 53 04 04 0 20 5 ME 30 ON Ac UP 74 -0 -1 0. D 86 AN ti RO 60 1- 6- 00 CA 95 ve FE 46 20 20 0 RE 63 DE N 40 15 15 LAUREN 40 5 PH RA 0 AR H MG MA A CY TA BL LL ET C GL GO W LE 00 01 04 0 30 15 ME 30 ON Ac VE 16 -2 -1 .0 D 86 AN ti MO 96 3- 4- 00 CA 42 ve R 43 20 20 RE 13 DE FL 81 15 15 LAUREN EX 0 PH RA TO AR H UC MA A H CY 10 0 LL UN C IT GL S/ ML GO W CI 65 12 04 0 30 30 ME 30 ON Ac TA 16 -1 -1 0. D 84 AN ti LO 20 5- 0- 00 CA 88 ve DE 05 20 20 0 RE 79 DE AM 45 14 15 LAUREN 0 PH RA HB AR H R MA A 40 CY MG LL C TA GL BL ET GO W ON 53 02 04 11 50 25 CO 51 ON Ac ET 88 -2 -0 0. MM 17 AN ti OU 50 0- 9- 00 ON 74 ve CH 24 20 20 0 WE DE 45 15 15 AL LAUREN UL 0 TH RA TR H A FA A TE MO ST LY ST PH RI AR PS MA CY , LE 00 01 04 0 30 13 ME 30 ON Ac VE 16 -2 -0 .0 D 66 AN ti MO 96 3- 4- 00 CA 69 ve R 43 20 20 RE 11 DE FL 81 15 15 LAUREN EX 0 PH RA TO AR H UC MA A H CY 10 0 LL UN C IT GL S/ ML GO W DI 29 04 04 0 60 30 ME 30 ON Ac VA 30 -1 -0 0. D 82 AN ti LP 00 8- 2- 00 CA 94 ve RO 13 20 20 0 RE 27 DE EX 90 14 15 LAUREN 5 PH RA SO AR H D MA A DR CY 25 LL 0 C MG GL TA GO B W LE 68 04 04 0 60 30 ME 30 ON Ac VE 00 -1 -0 0. D 82 AN ti TI 10 8- 2- 00 CA 94 ve RA 11 20 20 0 RE 28 DE CE 70 14 15 LAUREN TA 3 PH RA M AR H 50 MA A 0 CY MG LL TA C BL GL ET GO W ME 53 04 04 0 60 30 ME 30 ON Ac TF 74 -0 -0 0. D 83 AN ti OR 60 1- 1- 00 CA 39 ve MO 17 20 20 0 RE 56 DE N 90 15 15 LAUREN HC 1 PH RA L AR H ER MA A CY 75 0 LL MG C GL TA BL GO ET W IB 53 04 03 0 20 5 ME 30 ON Ac UP 74 -0 -2 0. D 81 AN ti RO 60 1- 5- 00 CA 65 ve FE 46 20 20 0 RE 09 DE N 40 14 15 LAUREN 40 5 PH RA 0 AR H MG MA A CY TA BL LL ET C GL GO W EA 08 03 03 0 10 50 CO 51 ON Ac SY 49 -2 -2 00 MM 23 AN ti 63 0- 0- .0 ON 89 ve TO 10 20 20 00 WE DE UC 10 15 15 AL LAUREN H 1 TH RA PE H N FA A NE MO ED LY LE PH 31 AR GX MA 3/ CY 16 , RI 27 04 03 0 60 30 ME 30 ON Ac SP 24 -1 -2 0. D 80 AN ti ER 10 2- 0- 00 CA 07 ve ID 00 20 20 0 RE 02 DE ON 40 14 15 LAUREN E 6 PH RA 2 AR H MG MA A CY TA BL LL ET C GL GO W DI 29 04 03 0 60 30 ME 30 ON Ac VA 30 -1 -2 0. D 80 AN ti LP 00 8- 0- 00 CA 07 ve RO 14 20 20 0 RE 01 DE EX 00 14 15 LAUREN 5 PH RA SO AR H D MA A DR CY 50 LL 0 C MG GL TA GO B W VE 51 10 03 0 30 30 ME 30 ON Ac SI 24 -0 -2 0. D 79 AN ti CA 80 1- 0- 00 CA 78 ve RE 15 20 20 0 RE 53 DE 10 14 15 LAUREN 10 3 PH RA AR H MG MA A CY TA BL LL ET C GL GO W ME 53 01 03 0 42 10 ME 30 ON Ac TF 74 -2 -1 0. D 79 AN ti OR 60 1- 9- 00 CA 45 ve MO 17 20 20 0 RE 75 DE N 80 15 15 LAUREN HC 5 PH RA L AR H ER MA A CY 50 0 LL MG C GL TA BL GO ET W GL 00 01 03 0 30 30 ME 30 ON Ac IM 09 -2 -1 0. D 79 AN ti EP 37 1- 9- 00 CA 45 ve IR 25 20 20 0 RE 76 DE ID 60 15 15 LAUREN E 1 PH RA 4 AR H MG MA A CY TA BL LL ET C GL GO W EA 08 02 03 11 10 50 CO 51 ON Ac SY 49 -2 -1 00 MM 17 AN ti 62 0- 6- .0 ON 75 ve TO 81 20 20 00 WE DE UC 80 15 15 AL LAUREN H 1 TH RA SA H FE FA A TY MO LY 28 G PH LA AR NC MA ET CY S , ON 53 02 03 11 50 25 CO 51 ON Ac ET 88 -2 -1 0. MM 17 AN ti OU 50 0- 6- 00 ON 74 ve CH 24 20 20 0 WE DE 45 15 15 AL LAUREN UL 0 TH RA TR H A FA A TE MO ST LY ST PH RI AR PS MA CY , CI 65 12 03 0 30 30 ME 30 ON Ac TA 16 -1 -1 0. D 77 AN ti LO 20 5- 2- 00 CA 77 ve DE 05 20 20 0 RE 04 DE AM 45 14 15 LAUREN 0 PH RA HB AR H R MA A 40 CY MG LL C TA GL BL ET GO W LE 68 04 03 0 60 30 ME 30 ON Ac VE 00 -1 -0 0. D 75 AN ti TI 10 8- 4- 00 CA 66 ve RA 11 20 20 0 RE 75 DE CE 70 14 15 LAUREN TA 3 PH RA M AR H 50 MA A 0 CY MG LL TA C BL GL ET GO W DI 29 04 03 0 60 30 ME 30 ON Ac VA 30 -1 -0 0. D 75 AN ti LP 00 8- 4- 00 CA 66 ve RO 13 20 20 0 RE 74 DE EX 90 14 15 LAUREN 5 PH RA SO AR H D MA A DR CY 25 LL 0 C MG GL TA GO B W LO 00 04 03 0 30 5 ME 30 ON Ac PE 09 -0 -0 0. D 76 AN ti RA 30 1- 4- 00 CA 55 ve MO 31 20 20 0 RE 32 DE DE 10 14 15 LAUREN 2 5 PH RA AR H MG MA A CY CA PS LL UL C E GL GO W DE 00 04 02 0 20 14 ME 30 ON Ac OM 59 -0 -2 0. D 74 AN ti ET 15 1- 5- 00 CA 83 ve PACK 30 20 20 0 RE 25 DE ZI 71 14 15 LAUREN NE 0 PH RA AR H 25 MA A CY MG LL TA C BL GL ET GO W NO 00 01 02 5 15 15 CO 51 ON Ac VO 16 -2 -2 0. 0 MM 12 AN ti LO 93 6- 3- 00 ON 19 ve G 69 20 20 0 WE DE MO 61 15 15 AL LAUREN X 9 TH RA 70 H -3 FA A 0 MO FL LY EX PE PH N AR SY MA RN CY , DI 29 04 02 0 60 30 ME 30 ON Ac VA 30 -1 -2 0. D 73 AN ti LP 00 8- 0- 00 CA 14 ve RO 14 20 20 0 RE 02 DE EX 00 14 15 LAUREN 5 PH RA SO AR H D MA A DR CY 50 LL 0 C MG GL TA GO B W RI 68 04 02 0 60 30 ME 30 ON Ac SP 38 -1 -2 0. D 73 AN ti ER 20 2- 0- 00 CA 14 ve ID 11 20 20 0 RE 03 DE ON 51 14 15 LAUREN E 4 PH RA 2 AR H MG MA A CY TA BL LL ET C GL GO W ON 53 02 02 11 50 25 CO 51 ON Ac ET 88 -2 -2 0. MM 17 AN ti OU 50 0- 0- 00 ON 74 ve CH 24 20 20 0 WE DE 45 15 15 AL LAUREN UL 0 TH RA TR H A FA A TE MO ST LY ST PH RI AR PS MA CY , VE 51 10 02 0 30 30 ME 30 ON Ac SI 24 -0 -1 0. D 72 AN ti CA 80 1- 9- 00 CA 72 ve RE 15 20 20 0 RE 01 DE 10 14 15 LAUREN 10 3 PH RA AR H MG MA A CY TA BL LL ET C GL GO W GL 00 01 02 0 30 30 ME 30 ON Ac IM 09 -2 -1 0. D 72 AN ti EP 37 1- 8- 00 CA 34 ve IR 25 20 20 0 RE 64 DE ID 60 15 15 LAUREN E 1 PH RA 4 AR H MG MA A CY TA BL LL ET C GL GO W ME 53 01 02 0 12 30 ME 30 ON Ac TF 74 -2 -1 00 D 72 AN ti OR 60 1- 8- .0 CA 34 ve MO 17 20 20 00 RE 63 DE N 80 15 15 LAUREN HC 5 PH RA L AR H ER MA A CY 50 0 LL MG C GL TA BL GO ET W CI 65 12 02 0 30 30 ME 30 ON Ac TA 16 -1 -1 0. D 70 AN ti LO 20 5- 1- 00 CA 47 ve DE 05 20 20 0 RE 40 DE AM 45 14 15 LAUREN 0 PH RA HB AR H R MA A 40 CY MG LL C TA GL BL ET GO W LE 68 04 02 0 60 30 ME 30 ON Ac VE 00 -1 -0 0. D 67 AN ti TI 10 8- 2- 00 CA 60 ve RA 11 20 20 0 RE 59 DE CE 70 14 15 LAUREN TA 3 PH RA M AR H 50 MA A 0 CY MG LL TA C BL GL ET GO W DI 29 04 02 0 60 30 ME 30 ON Ac VA 30 -1 -0 0. D 67 AN ti LP 00 8- 2- 00 CA 60 ve RO 13 20 20 0 RE 58 DE EX 90 14 15 LAUREN 5 PH RA SO AR H D MA A DR CY 25 LL 0 C MG GL TA GO B W NO 00 01 01 0 30 30 ME 30 ON Ac VO 16 -2 -2 .0 D 66 AN ti LO 93 3- 6- 00 CA 69 ve G 69 20 20 RE 99 DE MO 61 15 15 LAUREN X 9 PH RA 70 AR H -3 MA A 0 CY FL EX LL PE C N GL SY RN GO W EA 08 01 01 0 10 50 CO 51 ON Ac SY 49 -2 -2 00 MM 11 AN ti 63 1- 4- .0 ON 64 ve TO 10 20 20 00 WE DE UC 10 15 15 AL LAUREN H 1 TH RA PE H N FA A NE MO ED LY LE PH 31 AR GX MA 3/ CY 16 , RI 68 04 01 0 60 30 ME 30 ON Ac SP 38 -1 -2 0. D 66 AN ti ER 20 2- 3- 00 CA 10 ve ID 11 20 20 0 RE 74 DE ON 51 14 15 LAUREN E 4 PH RA 2 AR H MG MA A CY TA BL LL ET C GL GO W DI 29 04 01 0 60 30 ME 30 ON Ac VA 30 -1 -2 0. D 66 AN ti LP 00 8- 3- 00 CA 10 ve RO 14 20 20 0 RE 73 DE EX 00 14 15 LAUREN 5 PH RA SO AR H D MA A DR CY 50 LL 0 C MG GL TA GO B W LE 00 01 01 0 15 90 CO 51 ON Ac VE 16 -2 -2 0. MM 11 AN ti MO 96 1- 3- 00 ON 63 ve R 43 20 20 0 WE DE FL 81 15 15 AL LAUREN EX 0 TH RA TO H UC FA A H MO 10 LY 0 UN PH IT AR S/ MA ML CY , ME 60 01 01 0 12 30 ME 30 ON Ac TF 50 -2 -2 00 D 66 AN ti OR 50 1- 1- .0 CA 20 ve MO 26 20 20 00 RE 13 DE N 00 15 15 LAUREN HC 2 PH RA L AR H ER MA A CY 50 0 LL MG C GL TA BL GO ET W GL 00 01 01 0 30 30 ME 30 ON Ac IM 09 -2 -2 0. D 66 AN ti EP 37 1- 1- 00 CA 20 ve IR 25 20 20 0 RE 30 DE ID 60 15 15 LAUREN E 1 PH RA 4 AR H MG MA A CY TA BL LL ET C GL GO W VE 51 10 01 0 30 30 ME 30 ON Ac SI 24 -0 -2 0. D 65 AN ti CA 80 1- 1- 00 CA 29 ve RE 15 20 20 0 RE 24 DE 10 14 15 LAUREN 10 3 PH RA AR H MG MA A CY TA BL LL ET C GL GO W EA 08 01 01 0 10 50 CO 51 ON Ac SY 49 -1 -1 00 MM 09 AN ti 62 6- 6- .0 ON 88 ve TO 81 20 20 00 WE DE UC 80 15 15 AL LAUREN H 1 TH RA SA H FE FA A TY MO LY 28 G PH LA AR NC MA ET CY S , HU 00 01 01 0 10 28 ME 30 ON Ac MU 00 -1 -1 0. D 64 AN ti LI 28 6- 6- 00 CA 94 ve N 21 20 20 0 RE 30 DE R 50 15 15 LAUREN 10 1 PH RA 0 AR H UN MA A IT CY S/ ML LL C GL AL GO W ON 53 01 01 0 10 7 CO 51 ON Ac ET 88 -1 -1 .0 MM 09 AN ti OU 50 4- 6- 00 ON 84 ve CH 44 20 20 WE DE 80 15 15 AL LAUREN UL 1 TH RA TR H A2 FA A MO GL LY UC OS PH E AR SY MA ST CY , ON 53 01 01 0 50 25 CO 51 ON Ac ET 88 -1 -1 0. MM 09 AN ti OU 50 6- 6- 00 ON 86 ve CH 24 20 20 0 WE DE 45 15 15 AL LAUREN UL 0 TH RA TR H A FA A TE MO ST LY ST PH RI AR PS MA CY , GL 55 01 01 0 14 14 ME 30 ON Ac IM 11 -1 -1 0. D 64 AN ti EP 10 6- 6- 00 CA 94 ve IR 32 20 20 0 RE 27 DE ID 10 15 15 LAUREN E 5 PH RA 2 AR H MG MA A CY TA BL LL ET C GL GO W ME 60 01 01 0 20 1 ME 30 ON Ac TF 50 -1 -1 .0 D 64 AN ti OR 50 5- 5- 00 CA 89 ve MO 26 20 20 RE 01 DE N 00 15 15 LAUREN HC 2 PH RA L AR H ER MA A CY 50 0 LL MG C GL TA BL GO ET W ME 60 01 01 0 20 1 ME 30 ON Ac TF 50 -1 -1 .0 D 64 AN ti OR 50 4- 4- 00 CA 86 ve MO 26 20 20 RE 60 DE N 00 15 15 LAUREN HC 2 PH RA L AR H ER MA A CY 50 0 LL MG C GL TA BL GO ET W CI 65 12 01 0 30 30 ME 30 ON Ac TA 16 -1 -1 0. D 62 AN ti LO 20 5- 2- 00 CA 74 ve DE 05 20 20 0 RE 47 DE AM 45 14 15 LAUREN 0 PH RA HB AR H R MA A 40 CY MG LL C TA GL BL ET GO W DI 29 04 01 0 60 30 ME 30 ON Ac VA 30 -1 -0 0. D 60 AN ti LP 00 8- 3- 00 CA 46 ve RO 13 20 20 0 RE 65 DE EX 90 14 15 LAUREN 5 PH RA SO AR H D MA A DR CY 25 LL 0 C MG GL TA GO B W LE 68 04 01 0 60 30 ME 30 ON Ac VE 00 -1 -0 0. D 60 AN ti TI 10 8- 3- 00 CA 46 ve RA 11 20 20 0 RE 52 DE CE 70 14 15 LAUREN TA 3 PH RA M AR H 50 MA A 0 CY MG LL TA C BL GL ET GO W AZ 00 12 12 0 60 5 ME 30 ON Ac IT 78 -2 -2 .0 D 59 AN ti HR 11 6- 6- 00 CA 45 ve OM 49 20 20 RE 20 DE YC 66 14 14 LAUREN IN 8 PH RA AR H 25 MA A 0 CY MG LL TA C BL GL ET GO W TA 00 12 12 0 10 5 ME 30 ON Ac MO 00 -2 -2 0. D 59 AN ti FL 40 6- 6- 00 CA 45 ve U 80 20 20 0 RE 24 DE 75 08 14 14 LAUREN 5 PH RA MG AR H MA A CA CY PS UL LL E C GL GO W RI 68 04 12 0 26 13 ME 30 ON Ac SP 38 -1 -2 0. D 58 AN ti ER 20 2- 6- 00 CA 27 ve ID 11 20 20 0 RE 60 DE ON 51 14 14 LAUREN E 4 PH RA 2 AR H MG MA A CY TA BL LL ET C GL GO W DI 29 04 12 0 40 20 ME 30 ON Ac VA 30 -1 -2 0. D 58 AN ti LP 00 8- 6- 00 CA 27 ve RO 14 20 20 0 RE 58 DE EX 00 14 14 LAUREN 5 PH RA SO AR H D MA A DR CY 50 LL 0 C MG GL TA GO B W VE 51 10 12 0 30 30 ME 30 ON Ac SI 24 -0 -2 0. D 56 AN ti CA 80 1- 2- 00 CA 81 ve RE 15 20 20 0 RE 80 DE 10 14 14 LAUREN 10 3 PH RA AR H MG MA A CY TA BL LL ET C GL GO W DI 00 04 12 0 20 5 ME 30 ON Ac PH 60 -0 -1 0. D 57 AN ti EN 33 1- 7- 00 CA 05 ve HY 33 20 [address] 93 14 14 LAUREN AM 2 PH RA IN AR H E MA A 25 CY MG LL C CA GL PS UL GO E W HY 00 12 12 0 48 16 ME [address] 18 -1 -1 0. D 56 AN ti OX 50 5- 5- 00 CA 37 ve YZ 67 20 20 0 RE 27 DE IN 40 14 14 LAUREN E 5 PH RA PA AR H M MA A 25 CY MG LL C CA GL P GO W CI 65 12 12 0 30 30 ME 30 ON Ac TA 16 -1 -1 0. D 56 AN ti LO 20 5- 5- 00 CA 36 ve DE 05 20 20 0 RE 06 DE AM 45 14 14 LAUREN 0 PH RA HB AR H R MA A 40 CY MG LL C TA GL BL ET GO W IB 53 04 12 0 20 5 ME 30 ON Ac UP 74 -0 -0 0. D 54 AN ti RO 60 1- 9- 00 CA 86 ve FE 46 20 20 0 RE 63 DE N 40 14 14 LAUREN 40 5 PH RA 0 AR H MG MA A CY TA BL LL ET C GL GO W LE 68 04 12 0 60 30 ME 30 ON Ac VE 00 -1 -0 0. D 53 AN ti TI 10 8- 5- 00 CA 48 ve RA 11 20 20 0 RE 60 DE CE 70 14 14 LAUREN TA 3 PH RA M AR H 50 MA A 0 CY MG LL TA C BL GL ET GO W DI 29 04 12 0 60 30 ME 30 ON Ac VA 30 -1 -0 0. D 53 AN ti LP 00 8- 5- 00 CA 61 ve RO 13 20 20 0 RE 03 DE EX 90 14 14 LAUREN 5 PH RA SO AR H D MA A DR CY 25 LL 0 C MG GL TA GO B W DI 29 04 11 0 60 30 ME 30 ON Ac VA 30 -1 -2 0. D 51 AN ti LP 00 8- 8- 00 CA 54 ve RO 14 20 20 0 RE 43 DE EX 00 14 14 LAUREN 5 PH RA SO AR H D MA A DR CY 50 LL 0 C MG GL TA GO B W RI 68 04 11 0 60 30 ME 30 ON Ac SP 38 -1 -2 0. D 51 AN ti ER 20 2- 8- 00 CA 54 ve ID 11 20 20 0 RE 44 DE ON 51 14 14 LAUREN E 4 PH RA 2 AR H MG MA A CY TA BL LL ET C GL GO W CI 65 05 11 0 60 3 ME 30 ON Ac TA 16 -1 -2 .0 D 51 AN ti LO 20 3- 8- 00 CA 54 ve DE 05 20 20 RE 47 DE AM 45 14 14 LAUREN 0 PH RA HB AR H R MA A 40 CY MG LL C TA GL BL ET GO W VE 51 10 11 0 30 30 ME 30 ON Ac SI 24 -0 -2 0. D 50 AN ti CA 80 1- 2- 00 CA 14 ve RE 15 20 20 0 RE 51 DE 10 14 14 LAUREN 10 3 PH RA AR H MG MA A CY TA BL LL ET C GL GO W HY 00 09 11 0 30 5 ME [address] 60 -1 -2 0. D 49 AN ti OC 33 7- 0- 00 CA 89 ve OD 89 20 20 0 RE 31 DE ON 03 14 14 LAUREN -A 2 PH RA CE AR H TA MA A MO CY NO PH LL EN C GL 5- 32 GO 5 W DI 29 04 11 0 60 30 ME 30 ON Ac VA 30 -1 -0 0. D 46 AN ti LP 00 8- 7- 00 CA 05 ve RO 13 20 20 0 RE 42 DE EX 90 14 14 LAUREN 5 PH RA SO AR H D MA A DR CY 25 LL 0 C MG GL TA GO B W LE 68 04 11 0 60 30 ME 30 ON Ac VE 00 -1 -0 0. D 45 AN ti TI 10 8- 6- 00 CA 75 ve RA 11 20 20 0 RE 45 DE CE 70 14 14 LAUREN TA 3 PH RA M AR H 50 MA A 0 CY MG LL TA C BL GL ET GO W DI 00 04 11 0 20 5 ME 30 ON Ac PH 60 -0 -0 0. D 45 AN ti EN 33 1- 3- 00 CA 30 ve HY 33 20 [address] 93 14 14 LAUREN AM 2 PH RA IN AR H E MA A 25 CY MG LL C CA GL PS UL GO E W DI 29 04 10 0 60 30 ME 30 ON Ac VA 30 -1 -3 0. D 44 AN ti LP 00 8- 1- 00 CA 45 ve RO 14 20 20 0 RE 91 DE EX 00 14 14 LAUREN 5 PH RA SO AR H D MA A DR CY 50 LL 0 C MG GL TA GO B W CI 65 05 10 0 15 30 ME 30 ON Ac TA 16 -1 -3 0. D 44 AN ti LO 20 3- 1- 00 CA 56 ve DE 05 20 20 0 RE 66 DE AM 45 14 14 LAUREN 0 PH RA HB AR H R MA A 40 CY MG LL C TA GL BL ET GO W RI 68 04 10 0 60 30 ME 30 ON Ac SP 38 -1 -3 0. D 44 AN ti ER 20 2- 1- 00 CA 56 ve ID 11 20 20 0 RE 63 DE ON 51 14 14 LAUREN E 4 PH RA 2 AR H MG MA A CY TA BL LL ET C GL GO W VE 51 10 10 0 30 30 ME 30 ON Ac SI 24 -0 -2 0. D 43 AN ti CA 80 1- 9- 00 CA 76 ve RE 15 20 20 0 RE 68 DE 10 14 14 LAUREN 10 3 PH RA AR H MG MA A CY TA BL LL ET C GL GO W JHA 53 10 10 0 20 10 ME 30 WA Ac LF 74 -2 -[address] ti AM 60 0- 0- 00 CA 12 ve ET 27 20 20 0 RE 81 AL HO 20 14 14 BE XA 5 PH RT ZO AR F LE MA -T CY MP LL DS C GL TA BL GO ET W DI 29 04 10 0 60 30 ME 30 ON Ac VA 30 -1 -0 0. D 38 AN ti LP 00 8- 9- 00 CA 69 ve RO 13 20 20 0 RE 69 DE EX 90 14 14 LAUREN 5 PH RA SO AR H D MA A DR CY 25 LL 0 C MG GL TA GO B W LE 68 04 10 0 60 30 ME 30 ON Ac VE 00 -1 -0 0. D 38 AN ti TI 10 8- 8- 00 CA 39 ve RA 11 20 20 0 RE 79 DE CE 70 14 14 LAUREN TA 3 PH RA M AR H 50 MA A 0 CY MG LL TA C BL GL ET GO W DI 29 04 10 0 60 30 ME 30 ON Ac VA 30 -1 -0 0. D 36 AN ti LP 00 8- 4- 00 CA 71 ve RO 14 20 20 0 RE 19 DE EX 00 14 14 LAUREN 5 PH RA SO AR H D MA A DR CY 50 LL 0 C MG GL TA GO B W RI 68 04 10 0 60 30 ME 30 ON Ac SP 38 -1 -0 0. D 37 AN ti ER 20 2- 3- 00 CA 52 ve ID 11 20 20 0 RE 57 DE ON 51 14 14 LAUREN E 4 PH RA 2 AR H MG MA A CY TA BL LL ET C GL GO W CI 65 05 10 0 15 30 ME 30 ON Ac TA 16 -1 -0 0. D 37 AN ti LO 20 3- 3- 00 CA 39 ve DE 05 20 20 0 RE 80 DE AM 45 14 14 LAUREN 0 PH RA HB AR H R MA A 40 CY MG LL C TA GL BL ET GO W VE 51 10 10 0 30 30 ME 30 ON Ac SI 24 -0 -0 0. D 37 AN ti CA 80 1- 1- 00 CA 57 ve RE 15 20 20 0 RE 33 DE 10 14 14 LAUREN 10 3 PH RA AR H MG MA A CY TA BL LL ET C GL GO W HY 00 09 09 0 30 5 ME [address] 59 -1 -1 0. D 34 AN ti OC 13 7- 7- 00 CA 18 ve OD 20 20 20 0 RE 79 DE ON 20 14 14 LAUREN -A 5 PH RA CE AR H TA MA A MO CY NO PH LL EN C GL 5- 32 GO 5 W IB 53 04 09 0 20 5 ME 30 ON Ac UP 74 -0 -1 0. D 33 AN ti RO 60 1- 5- 00 CA 11 ve FE 46 20 20 0 RE 85 DE N 40 14 14 LAUREN 40 5 PH RA 0 AR H MG MA A CY TA BL LL ET C GL GO W DI 29 04 09 0 60 30 ME 30 ON Ac VA 30 -1 -1 0. D 31 AN ti LP 00 8- 0- 00 CA 52 ve RO 14 20 20 0 RE 19 DE EX 00 14 14 LAUREN 5 PH RA SO AR H D MA A DR CY 50 LL 0 C MG GL TA GO B W LE 68 04 09 0 60 30 ME 30 ON Ac VE 00 -1 -0 0. D 30 AN ti TI 10 8- 8- 00 CA 92 ve RA 11 20 20 0 RE 76 DE CE 70 14 14 LAUREN TA 3 PH RA M AR H 50 MA A 0 CY MG LL TA C BL GL ET GO W RI 68 04 09 0 60 30 ME 30 ON Ac SP 38 -1 -0 0. D 30 AN ti ER 20 2- 5- 00 CA 57 ve ID 11 20 20 0 RE 22 DE ON 51 14 14 LAUREN E 4 PH RA 2 AR H MG MA A CY TA BL LL ET C GL GO W CI 65 05 09 0 15 30 ME 30 ON Ac TA 16 -1 -0 0. D 29 AN ti LO 20 3- 4- 00 CA 93 ve DE 05 20 20 0 RE 40 DE AM 45 14 14 LAUREN 0 PH RA HB AR H R MA A 40 CY MG LL C TA GL BL ET GO W LO 00 04 09 0 30 5 ME 30 ON Ac PE 09 -0 -0 0. D 30 AN ti RA 30 1- 2- 00 CA 07 ve MO 31 20 20 0 RE 61 DE DE 10 14 14 LAUREN 2 5 PH RA AR H MG MA A CY CA PS LL UL C E GL GO W IB 53 04 08 0 20 5 ME 30 ON Ac UP 74 -0 -1 0. D 25 AN ti RO 60 1- 3- 00 CA 22 ve FE 46 20 20 0 RE 28 DE N 40 14 14 LAUREN 40 5 PH RA 0 AR H MG MA A CY TA BL LL ET C GL GO W LE 68 04 08 0 60 30 ME 30 ON Ac VE 00 -1 -1 0. D 20 AN ti TI 10 8- 1- 00 CA 51 ve RA 11 20 20 0 RE 40 DE CE 70 14 14 LAUREN TA 3 PH RA M AR H 50 MA A 0 CY MG LL TA C BL GL ET GO W DI 29 04 08 0 60 30 ME 30 ON Ac VA 30 -1 -1 0. D 23 AN ti LP 00 8- 1- 00 CA 90 ve RO 14 20 20 0 RE 30 DE EX 00 14 14 LAUREN 5 PH RA SO AR H D MA A DR CY 50 LL 0 C MG GL TA GO B W RI 68 04 08 0 60 30 ME 30 ON Ac SP 38 -1 -0 0. D 23 AN ti ER 20 2- 8- 00 CA 34 ve ID 11 20 20 0 RE 57 DE ON 51 14 14 LAUREN E 4 PH RA 2 AR H MG MA A CY TA BL LL ET C GL GO W CI 65 05 08 0 15 30 ME 30 ON Ac TA 16 -1 -0 0. D 24 AN ti LO 20 3- 8- 00 CA 05 ve DE 05 20 20 0 RE 62 DE AM 45 14 14 LAUREN 0 PH RA HB AR H R MA A 40 CY MG LL C TA GL BL ET GO W MU 45 08 08 0 22 5 ME 30 ON Ac PI 80 -0 -0 0. D 23 AN ti RO 20 6- 7- 00 CA 59 ve CI 11 20 20 0 RE 33 DE N 22 14 14 LAUREN 2% 2 PH RA AR H OI MA A NT CY ME NT LL C GL GO W MU 45 08 08 0 22 30 ME 30 ON Ac PI 80 -0 -0 0. D 23 AN ti RO 20 6- 6- 00 CA 59 ve CI 11 20 20 0 RE 28 DE N 22 14 14 LAUREN 2% 2 PH RA AR H OI MA A NT CY ME NT LL C GL GO W CE 68 08 08 0 30 10 ME 30 ON Ac PH 18 -0 -0 0. D 23 AN ti AL 00 6- 6- 00 CA 59 ve EX 12 20 20 0 RE 36 DE IN 20 14 14 LAUREN 2 PH RA 50 AR H 0 MA A MG CY CA LL PS C UL GL E GO W 00 01 07 0 30 10 ME 30 ON Ac 18 -2 -1 0. D 18 AN ti 50 0- 8- 00 CA 99 ve 61 20 20 0 RE 42 DE 30 14 14 LAUREN 5 PH RA AR H MA A CY LL C GL GO W DI 29 04 07 0 60 30 ME 30 ON Ac VA 30 -1 -1 0. D 16 AN ti LP 00 8- 2- 00 CA 75 ve RO 14 20 20 0 RE 09 DE EX 00 14 14 LAUREN 5 PH RA SO AR H D MA A DR CY 50 LL 0 C MG GL TA GO B W LE 68 04 07 0 60 30 ME 30 ON Ac VE 00 -1 -1 0. D 16 AN ti TI 10 8- 2- 00 CA 75 ve RA 11 20 20 0 RE 11 DE CE 70 14 14 LAUREN TA 3 PH RA M AR H 50 MA A 0 CY MG LL TA C BL GL ET GO W RI 68 04 07 0 60 30 ME 30 ON Ac SP 38 -1 -1 0. D 16 AN ti ER 20 2- 0- 00 CA 38 ve ID 11 20 20 0 RE 05 DE ON 50 14 14 LAUREN E 5 PH RA 2 AR H MG MA A CY TA BL LL ET C GL GO W IB 00 04 07 0 20 5 ME 30 ON Ac UP 90 -0 -0 0. D 16 AN ti RO 45 1- 7- 00 CA 18 ve FE 85 20 20 0 RE 59 DE N 36 14 14 LAUREN 40 1 PH RA 0 AR H MG MA A CY TA BL LL ET C GL GO W CI 65 05 06 0 15 30 ME 30 ON Ac TA 16 -1 -2 0. D 13 AN ti LO 20 3- 7- 00 CA 28 ve DE 05 20 20 0 RE 28 DE AM 45 14 14 LAUREN 0 PH RA HB AR H R MA A 40 CY MG LL C TA GL BL ET GO W LO 51 04 06 0 30 5 ME 30 ON Ac PE 07 -0 -1 0. D 10 AN ti RA 90 1- 6- 00 CA 69 ve MO 69 20 20 0 RE 52 DE DE 02 14 14 LAUREN 2 0 PH RA AR H MG MA A CY CA PS LL UL C E GL GO W LE 68 04 06 0 60 30 ME 30 ON Ac VE 00 -1 -1 0. D 09 AN ti TI 10 8- 3- 00 CA 88 ve RA 11 20 20 0 RE 52 DE CE 70 14 14 LAUREN TA 3 PH RA M AR H 50 MA A 0 CY MG LL TA C BL GL ET GO W DI 29 04 06 0 60 30 ME 30 ON Ac VA 30 -1 -1 0. D 09 AN ti LP 00 8- 3- 00 CA 88 ve RO 14 20 20 0 RE 50 DE EX 00 14 14 LAUREN 5 PH RA SO AR H D MA A DR CY 50 LL 0 C MG GL TA GO B W RI 68 04 06 0 60 30 ME 30 ON Ac SP 38 -1 -1 0. D 09 AN ti ER 20 2- 1- 00 CA 14 ve ID 11 20 20 0 RE 34 DE ON 50 14 14 LAUREN E 5 PH RA 2 AR H MG MA A CY TA BL LL ET C GL GO W CI 65 05 05 0 15 30 ME 30 ON Ac TA 16 -1 -3 0. D 06 AN ti LO 20 3- 0- 00 CA 48 ve DE 05 20 20 0 RE 62 DE AM 45 14 14 LAUREN 0 PH RA HB AR H R MA A 40 CY MG LL C TA GL BL ET GO W IB 63 04 05 0 20 5 ME 30 ON Ac UP 73 -0 -2 0. D 06 AN ti RO 90 1- 9- 00 CA 90 ve FE 44 20 20 0 RE 80 DE N 21 14 14 LAUREN 40 0 PH RA 0 AR H MG MA A CY TA BL LL ET C GL GO W LE 68 04 05 0 60 30 ME 30 ON Ac VE 18 -1 -1 0. D 03 AN ti TI 00 8- 6- 00 CA 14 ve RA 11 20 20 0 RE 66 DE CE 30 14 14 LAUREN TA 2 PH RA M AR H 50 MA A 0 CY MG LL TA C BL GL ET GO W DI 62 04 05 0 60 30 ME 30 ON Ac VA 75 -1 -1 0. D 03 AN ti LP 60 8- 6- 00 CA 14 ve RO 79 20 20 0 RE 65 DE EX 71 14 14 LAUREN 3 PH RA SO AR H D MA A DR CY 25 LL 0 C MG GL TA GO B W RI 68 04 05 0 60 30 ME 30 ON Ac SP 38 -1 -1 0. D 01 AN ti ER 20 2- 2- 00 CA 91 ve ID 11 20 20 0 RE 91 DE ON 50 14 14 LAUREN E 5 PH RA 2 AR H MG MA A CY TA BL LL ET C GL GO W CI 65 05 05 0 15 30 ME 26 ON Ac TA 16 -1 -0 0. D 18 AN ti LO 20 3- 2- 00 CA 06 ve DE 05 20 20 0 RE 8 DE AM 45 13 14 LAUREN 0 PH RA HB AR H R MA A 40 CY MG LL C TA GL BL ET GO W MO 00 04 04 0 35 15 ME 26 ON Ac 90 -0 -2 50 D 08 AN ti AC 40 1- 9- .0 CA 32 ve ID 00 20 20 00 RE 2 DE 41 14 14 LAUREN JHA 4 PH RA SP AR H EN MA A SI CY ON LL C GL GO W DI 62 04 04 0 60 30 ME 25 ON Ac VA 75 -1 -1 0. D 77 AN ti LP 60 8- 8- 00 CA 25 ve RO 79 20 20 0 RE 3 DE EX 71 14 14 LAUREN 3 PH RA SO AR H D MA A DR CY 25 LL 0 C MG GL TA GO B W LE 68 04 04 0 60 30 ME 25 ON Ac VE 18 -1 -1 0. D 84 AN ti TI 00 8- 8- 00 CA 46 ve RA 11 20 20 0 RE 3 DE CE 30 14 14 LAUREN TA 2 PH RA M AR H 50 MA A 0 CY MG LL TA C BL GL ET GO W RI 68 04 04 0 60 30 ME 25 ON Ac SP 38 -1 -1 0. D 69 AN ti ER 20 2- 2- 00 CA 79 ve ID 11 20 20 0 RE 2 DE ON 50 14 14 LAUREN E 5 PH RA 2 AR H MG MA A CY TA BL LL ET C GL GO W CI 65 05 04 0 15 30 ME 25 ON Ac TA 16 -1 -0 0. D 47 AN ti LO 20 3- 4- 00 CA 18 ve DE 05 20 20 0 RE 0 DE AM 45 13 14 LAUREN 0 PH RA HB AR H R MA A 40 CY MG LL C TA GL BL ET GO W LE 68 04 03 0 60 30 ME 25 ON Ac VE 18 -0 -2 0. D 10 AN ti TI 00 1- 1- 00 CA 02 ve RA 11 20 20 0 RE 9 DE CE 30 13 14 LAUREN TA 2 PH RA M AR H 50 MA A 0 CY MG LL TA C BL GL ET GO W DI 62 04 03 0 60 30 ME 25 ON Ac VA 75 -0 -1 0. D 02 AN ti LP 60 1- 9- 00 CA 19 ve RO 79 20 20 0 RE 8 DE EX 81 13 14 LAUREN 3 PH RA SO AR H D MA A DR CY 50 LL 0 C MG GL TA GO B W DI 00 04 03 0 20 5 ME 25 ON Ac PH 90 -0 -1 0. D 13 AN ti EN 45 1- 9- 00 CA 73 ve HY 30 20 [address] 66 13 14 LAUREN AM 1 PH RA IN AR H E MA A 25 CY MG LL C CA GL PS UL GO E W IB 63 04 03 0 20 5 ME 25 ON Ac UP 73 -0 -1 0. D 08 AN ti RO 90 1- 7- 00 CA 07 ve FE 44 20 20 0 RE 2 DE N 21 13 14 LAUREN 40 0 PH RA 0 AR H MG MA A CY TA BL LL ET C GL GO W RI 68 04 03 0 60 30 ME 24 ON Ac SP 38 -0 -1 0. D 99 AN ti ER 20 1- 4- 00 CA 81 ve ID 11 20 20 0 RE 3 DE ON 50 13 14 LAUREN E 5 PH RA 2 AR H MG MA A CY TA BL LL ET C GL GO W CI 57 05 03 0 15 30 ME 24 ON Ac TA 66 -1 -0 0. D 69 AN ti LO 40 3- 5- 00 CA 68 ve DE 50 20 20 0 RE 6 DE AM 91 13 14 LAUREN 3 PH RA HB AR H R MA A 40 CY MG LL C TA GL BL ET GO W LO 51 04 02 0 30 5 ME 24 ON Ac PE 07 -0 -2 0. D 57 AN ti RA 90 1- 4- 00 CA 16 ve MO 69 20 20 0 RE 1 DE DE 02 13 14 LAUREN 2 0 PH RA AR H MG MA A CY CA PS LL UL C E GL GO W LE 68 04 02 0 60 30 ME 24 ON Ac VE 18 -0 -1 0. D 35 AN ti TI 00 1- 9- 00 CA 69 ve RA 11 20 20 0 RE 9 DE CE 30 13 14 LAUREN TA 2 PH RA M AR H 50 MA A 0 CY MG LL TA C BL GL ET GO W MO 00 04 02 0 35 15 ME 24 ON Ac 90 -0 -1 50 D 38 AN ti AC 40 1- 7- .0 CA 65 ve ID 00 20 20 00 RE 9 DE 41 13 14 LAUREN JHA 4 PH RA SP AR H EN MA A SI CY ON LL C GL GO W DI 62 04 02 0 60 30 ME 24 ON Ac VA 75 -0 -1 0. D 41 AN ti LP 60 1- 7- 00 CA 20 ve RO 79 20 20 0 RE 5 DE EX 71 13 14 LAUREN 3 PH RA SO AR H D MA A DR CY 25 LL 0 C MG GL TA GO B W RI 68 04 02 0 60 30 ME 24 ON Ac SP 38 -0 -1 0. D 29 AN ti ER 20 1- 3- 00 CA 79 ve ID 11 20 20 0 RE 8 DE ON 50 13 14 LAUREN E 5 PH RA 2 AR H MG MA A CY TA BL LL ET C GL GO W CI 57 05 02 0 15 30 ME 23 ON Ac TA 66 -1 -0 0. D 98 AN ti LO 40 3- 3- 00 CA 06 ve DE 50 20 20 0 RE 4 DE AM 91 13 14 LAUREN 3 PH RA HB AR H R MA A 40 CY MG LL C TA GL BL ET GO W IB 63 04 02 0 20 5 ME 24 ON Ac UP 73 -0 -0 0. D 03 AN ti RO 90 1- 1- 00 CA 57 ve FE 44 20 20 0 RE 0 DE N 21 13 14 LAUREN 40 0 PH RA 0 AR H MG MA A CY TA BL LL ET C GL GO W 00 01 01 0 30 10 ME 23 ON Ac 18 -2 -2 0. D 72 AN ti 50 0- 0- 00 CA 11 ve 61 20 20 0 RE 8 DE 30 14 14 LAUREN 5 PH RA AR H MA A CY LL C GL GO W DI 62 04 01 0 60 30 ME 23 ON Ac VA 75 -0 -2 0. D 66 AN ti LP 60 1- 0- 00 CA 29 ve RO 79 20 20 0 RE 6 DE EX 71 13 14 LAUREN 3 PH RA SO AR H D MA A DR CY 25 LL 0 C MG GL TA GO B W LE 68 04 01 0 60 30 ME 23 ON Ac VE 18 -0 -2 0. D 66 AN ti TI 00 1- 0- 00 CA 29 ve RA 11 20 20 0 RE 7 DE CE 30 13 14 LAUREN TA 2 PH RA M AR H 50 MA A 0 CY MG LL TA C BL GL ET GO W OX 68 01 01 0 30 15 ME 23 ON Ac YB 08 -1 -1 0. D 67 AN ti UT 40 7- 7- 00 CA 23 ve YN 40 20 20 0 RE 9 DE IN 00 14 14 LAUREN 5 1 PH RA AR H MG MA A CY TA BL LL ET C GL GO W DI 62 04 01 0 60 30 ME 23 ON Ac VA 75 -0 -1 0. D 65 AN ti LP 60 1- 7- 00 CA 37 ve RO 79 20 20 0 RE 8 DE EX 81 13 14 LAUREN 3 PH RA SO AR H D MA A DR CY 50 LL 0 C MG GL TA GO B W IB 63 04 01 0 20 5 ME 23 ON Ac UP 73 -0 -1 0. D 63 AN ti RO 90 1- 6- 00 CA 36 ve FE 44 20 20 0 RE 1 DE N 21 13 14 LAUREN 40 0 PH RA 0 AR H MG MA A CY TA BL LL ET C GL GO W RI 68 04 01 0 60 30 ME 23 ON Ac SP 38 -0 -1 0. D 59 AN ti ER 20 1- 5- 00 CA 06 ve ID 11 20 20 0 RE 3 DE ON 50 13 14 LAUREN E 5 PH RA 2 AR H MG MA A CY TA BL LL ET C GL GO W TO 60 01 01 0 60 3 ME 23 ON Ac LT 50 -1 -1 .0 D 61 AN ti ER 53 5- 5- 00 CA 12 ve OD 52 20 20 RE 4 DE IN 80 14 14 LAUREN E 6 PH RA TA AR H RT MA A RA CY TE 2 LL C MG GL TA GO B W DE 00 04 01 0 20 14 ME 23 ON Ac OM 59 -0 -0 0. D 44 AN ti ET 15 1- 9- 00 CA 50 ve PACK 30 20 20 0 RE 2 DE ZI 71 13 14 LAUREN NE 0 PH RA AR H 25 MA A CY MG LL TA C BL GL ET GO W CI 57 05 01 0 15 30 ME 23 ON Ac TA 66 -1 -0 0. D 29 AN ti LO 40 3- 3- 00 CA 39 ve DE 50 20 20 0 RE 7 DE AM 91 13 14 LAUREN 3 PH RA HB AR H R MA A 40 CY MG LL C TA GL BL ET GO W FL 00 12 12 0 15 2 ME 23 ON Ac UO 09 -2 -2 0. D 04 AN ti CI 30 3- 3- 00 CA 24 ve NO 26 20 20 0 RE 3 DE NI 41 13 13 LAUREN DE 5 PH RA AR H 0. MA A 05 CY % OI LL NT C ME GL NT GO W CL 62 12 12 0 30 5 ME 23 ON Ac ON 58 -2 -2 0. D 04 AN ti ID 40 3- 3- 00 CA 25 ve IN 65 20 20 0 RE 7 DE E 70 13 13 LAUREN HC 1 PH RA L AR H 0. MA A 1 CY MG LL TA C BL GL ET GO W DI 62 04 12 0 60 30 ME 22 ON Ac VA 75 -0 -2 0. D 94 AN ti LP 60 1- 0- 00 CA 30 ve RO 79 20 20 0 RE 4 DE EX 71 13 13 LAUREN 3 PH RA SO AR H D MA A DR CY 25 LL 0 C MG GL TA GO B W LE 68 04 12 0 60 30 ME 22 ON Ac VE 18 -0 -2 0. D 94 AN ti TI 00 1- 0- 00 CA 30 ve RA 11 20 20 0 RE 5 DE CE 30 13 13 LAUREN TA 2 PH RA M AR H 50 MA A 0 CY MG LL TA C BL GL ET GO W DI 62 04 12 0 60 30 ME 22 ON Ac VA 75 -0 -1 0. D 91 AN ti LP 60 1- 9- 00 CA 40 ve RO 79 20 20 0 RE 7 DE EX 81 13 13 LAUREN 3 PH RA SO AR H D MA A DR CY 50 LL 0 C MG GL TA GO B W RI 68 04 12 0 60 30 ME 22 ON Ac SP 38 -0 -1 0. D 81 AN ti ER 20 1- 6- 00 CA 84 ve ID 11 20 20 0 RE 3 DE ON 50 13 13 LAUREN E 5 PH RA 2 AR H MG MA A CY TA BL LL ET C GL GO W MO 00 04 12 0 35 15 ME 22 ON Ac 90 -0 -0 50 D 66 AN ti AC 40 1- 9- .0 CA 97 ve ID 00 20 20 00 RE 7 DE 41 13 13 LAUREN JHA 4 PH RA SP AR H EN MA A SI CY ON LL C GL GO W PO 62 04 12 0 25 14 ME 22 ON Ac LY 17 -0 -0 50 D 66 AN ti ET 50 1- 9- .0 CA 98 ve HY 44 20 20 00 RE 8 DE LE 21 13 13 LAUREN NE 5 PH RA AR H GL MA A YC CY OL LL 33 C 50 GL PO GO WD W CI 57 05 12 0 15 30 ME 22 ON Ac TA 66 -1 -0 0. D 59 AN ti LO 40 3- 5- 00 CA 47 ve DE 50 20 20 0 RE 2 DE AM 91 13 13 LAUREN 3 PH RA HB AR H R MA A 40 CY MG LL C TA GL BL ET GO W IB 63 04 12 0 20 5 ME 22 ON Ac UP 73 -0 -0 0. D 51 AN ti RO 90 1- 2- 00 CA 08 ve FE 44 20 20 0 RE 1 DE N 21 13 13 LAUREN 40 0 PH RA 0 AR H MG MA A CY TA BL LL ET C GL GO W DI 62 04 11 0 60 30 ME 22 ON Ac VA 75 -0 -2 0. D 26 AN ti LP 60 1- 1- 00 CA 48 ve RO 79 20 20 0 RE 0 DE EX 71 13 13 LAUREN 3 PH RA SO AR H D MA A DR CY 25 LL 0 C MG GL TA GO B W LE 68 04 11 0 60 30 ME 22 ON Ac VE 18 -0 -2 0. D 26 AN ti TI 00 1- 1- 00 CA 48 ve RA 11 20 20 0 RE 1 DE CE 30 13 13 LAUREN TA 2 PH RA M AR H 50 MA A 0 CY MG LL TA C BL GL ET GO W DI 62 04 11 0 60 30 ME 22 ON Ac VA 75 -0 -1 0. D 20 AN ti LP 60 1- 9- 00 CA 79 ve RO 79 20 20 0 RE 4 DE EX 81 13 13 LAUREN 3 PH RA SO AR H D MA A DR CY 50 LL 0 C MG GL TA GO B W RI 51 04 11 0 60 30 ME 22 ON Ac SP 07 -0 -1 0. D 10 AN ti ER 90 1- 8- 00 CA 02 ve ID 46 20 20 0 RE 0 DE ON 35 13 13 LAUREN E 6 PH RA 2 AR H MG MA A CY TA BL LL ET C GL GO W MA 00 04 11 0 30 5 ME 22 ON Ac PA 90 -0 -1 0. D 04 AN ti P 41 1- 1- 00 CA 40 ve 50 98 20 20 0 RE 1 DE 0 86 13 13 LAUREN MG 1 PH RA AR H TA MA A BL CY ET LL C GL GO W CI 57 05 11 0 15 30 ME 21 ON Ac TA 66 -1 -0 0. D 90 AN ti LO 40 3- 6- 00 CA 72 ve DE 50 20 20 0 RE 8 DE AM 91 13 13 LAUREN 3 PH RA HB AR H R MA A 40 CY MG LL C TA GL BL ET GO W IB 63 04 10 0 20 5 ME 21 ON Ac UP 73 -0 -3 0. D 76 AN ti RO 90 1- 1- 00 CA 96 ve FE 44 20 20 0 RE 7 DE N 21 13 13 LAUREN 40 0 PH RA 0 AR H MG MA A CY TA BL LL ET C GL GO W LE 68 04 10 0 60 30 ME 21 ON Ac VE 18 -0 -2 0. D 59 AN ti TI 00 1- 5- 00 CA 65 ve RA 11 20 20 0 RE 5 DE CE 30 13 13 LAUREN TA 2 PH RA M AR H 50 MA A 0 CY MG LL TA C BL GL ET GO W DI 62 04 10 0 60 30 ME 21 ON Ac VA 75 -0 -2 0. D 59 AN ti LP 60 1- 5- 00 CA 65 ve RO 79 20 20 0 RE 4 DE EX 71 13 13 LAUREN 3 PH RA SO AR H D MA A DR CY 25 LL 0 C MG GL TA GO B W DI 62 04 10 0 60 30 ME 21 ON Ac VA 75 -0 -2 0. D 53 AN ti LP 60 1- 3- 00 CA 92 ve RO 79 20 20 0 RE 2 DE EX 81 13 13 LAUREN 3 PH RA SO AR H D MA A DR CY 50 LL 0 C MG GL TA GO B W RI 51 04 10 0 60 30 ME 21 ON Ac SP 07 -0 -1 0. D 43 AN ti ER 90 1- 9- 00 CA 54 ve ID 46 20 20 0 RE 8 DE ON 35 13 13 LAUREN E 6 PH RA 2 AR H MG MA A CY TA BL LL ET C GL GO W CI 65 05 10 0 15 30 ME 21 ON Ac TA 16 -1 -0 0. D 22 AN ti LO 20 3- 8- 00 CA 30 ve DE 05 20 20 0 RE 8 DE AM 45 13 13 LAUREN 0 PH RA HB AR H R MA A 40 CY MG LL C TA GL BL ET GO W MO 00 04 09 0 35 15 ME 20 ON Ac 90 -0 -2 50 D 99 AN ti AC 40 1- 8- .0 CA 44 ve ID 00 20 20 00 RE 8 DE 41 13 13 LAUREN JHA 4 PH RA SP AR H EN MA A SI CY ON LL C GL GO W IB 63 04 09 0 20 5 ME 20 ON Ac UP 73 -0 -2 0. D 96 AN ti RO 90 1- 7- 00 CA 07 ve FE 44 20 20 0 RE 2 DE N 21 13 13 LAUREN 40 0 PH RA 0 AR H MG MA A CY TA BL LL ET C GL GO W DI 62 04 09 0 60 30 ME 20 ON Ac VA 75 -0 -2 0. D 91 AN ti LP 60 1- 5- 00 CA 09 ve RO 79 20 20 0 RE 1 DE EX 71 13 13 LAUREN 3 PH RA SO AR H D MA A DR CY 25 LL 0 C MG GL TA GO B W LE 68 04 09 0 60 30 ME 20 ON Ac VE 18 -0 -2 0. D 91 AN ti TI 00 1- 5- 00 CA 09 ve RA 11 20 20 0 RE 2 DE CE 30 13 13 LAUREN TA 2 PH RA M AR H 50 MA A 0 CY MG LL TA C BL GL ET GO W DI 62 04 09 0 60 30 ME 20 ON Ac VA 75 -0 -2 0. D 83 AN ti LP 60 1- 3- 00 CA 31 ve RO 79 20 20 0 RE 2 DE EX 81 13 13 LAUREN 3 PH RA SO AR H D MA A DR CY 50 LL 0 C MG GL TA GO B W RI 51 04 09 0 60 30 ME 20 ON Ac SP 07 -0 -2 0. D 70 AN ti ER 90 1- 0- 00 CA 93 ve ID 46 20 20 0 RE 1 DE ON 35 13 13 LAUREN E 6 PH RA 2 AR H MG MA A CY TA BL LL ET C GL GO W MA 00 04 09 0 30 5 ME 20 ON Ac PA 90 -0 -1 0. D 70 AN ti P 41 1- 6- 00 CA 92 ve 50 98 20 20 0 RE 8 DE 0 86 13 13 LAUREN MG 1 PH RA AR H TA MA A BL CY ET LL C GL GO W CI 65 05 09 0 15 30 ME 20 ON Ac TA 16 -1 -0 0. D 49 AN ti LO 20 3- 6- 00 CA 19 ve DE 05 20 20 0 RE 9 DE AM 45 13 13 LAUREN 0 PH RA HB AR H R MA A 40 CY MG LL C TA GL BL ET GO W CE 00 09 09 0 30 10 ME 20 ON Ac PH 14 -0 -0 0. D 49 AN ti AL 39 5- 5- 00 CA 81 ve EX 89 20 20 0 RE 4 DE IN 70 13 13 LAUREN 5 PH RA 50 AR H 0 MA A MG CY CA LL PS C UL GL E GO W CE 00 09 09 0 10 1 ME 20 ON Ac PH 14 -0 -0 .0 D 48 AN ti AL 39 4- 4- 00 CA 48 ve EX 89 20 20 RE 7 DE IN 70 13 13 LAUREN 5 PH RA 50 AR H 0 MA A MG CY CA LL PS C UL GL E GO W ME 00 09 09 0 21 6 ME 20 ON Ac TH 60 -0 -0 0. D 45 AN ti YL 34 4- 4- 00 CA 62 ve DE 59 20 20 0 RE 6 DE ED 31 13 13 LAUREN NI 5 PH RA SO AR H LO MA A NE CY 4 LL MG C GL DO SE GO PK W DI 00 04 08 0 20 5 ME 20 ON Ac PH 90 -0 -3 0. D 38 AN ti EN 45 1- 0- 00 CA 47 ve HY 30 20 [address] 66 13 13 LAUREN AM 1 PH RA IN AR H E MA A 25 CY MG LL C CA GL PS UL GO E W DI 62 04 08 0 60 30 ME 20 ON Ac VA 75 -0 -2 0. D 28 AN ti LP 60 1- 7- 00 CA 34 ve RO 79 20 20 0 RE 3 DE EX 71 13 13 LAUREN 3 PH RA SO AR H D MA A DR CY 25 LL 0 C MG GL TA GO B W RI 51 04 08 0 60 30 ME 20 ON Ac SP 07 -0 -2 0. D 28 AN ti ER 90 1- 7- 00 CA 34 ve ID 46 20 20 0 RE 4 DE ON 35 13 13 LAUREN E 6 PH RA 2 AR H MG MA A CY TA BL LL ET C GL GO W LE 68 04 08 0 60 30 ME 20 ON Ac VE 18 -0 -2 0. D 28 AN ti TI 00 1- 7- 00 CA 34 ve RA 11 20 20 0 RE 5 DE CE 30 13 13 LAUREN TA 2 PH RA M AR H 50 MA A 0 CY MG LL TA C BL GL ET GO W DI 62 04 08 0 60 30 ME 20 ON Ac VA 75 -0 -2 0. D 27 AN ti LP 60 1- 6- 00 CA 01 ve RO 79 20 20 0 RE 8 DE EX 81 13 13 LAUREN 3 PH RA SO AR H D MA A DR CY 50 LL 0 C MG GL TA GO B W IB 63 04 08 0 20 5 ME 20 ON Ac UP 73 -0 -2 0. D 19 AN ti RO 90 1- 2- 00 CA 24 ve FE 44 20 20 0 RE 6 DE N 21 13 13 LAUREN 40 0 PH RA 0 AR H MG MA A CY TA BL LL ET C GL GO W MA 00 04 08 0 30 5 ME 20 ON Ac PA 90 -0 -1 0. D 11 AN ti P 41 1- 9- 00 CA 23 ve 50 98 20 20 0 RE 8 DE 0 86 13 13 LAUREN MG 1 PH RA AR H TA MA A BL CY ET LL C GL GO W CI 57 05 08 0 15 30 ME 19 ON Ac TA 66 -1 -0 0. D 87 AN ti LO 40 3- 8- 00 CA 65 ve DE 50 20 20 0 RE 3 DE AM 91 13 13 LAUREN 3 PH RA HB AR H R MA A 40 CY MG LL C TA GL BL ET GO W 62 04 07 0 80 2 ME 19 ON Ac 58 -0 -3 .0 D 73 AN ti 40 1- 1- 00 CA 76 ve 74 20 20 RE 9 DE 60 13 13 LAUREN 1 PH RA AR H MA A CY LL C GL GO W MA 00 04 07 0 30 5 ME 19 ON Ac PA 90 -0 -2 0. D 67 AN ti P 41 1- 9- 00 CA 06 ve 50 98 20 20 0 RE 2 DE 0 86 13 13 LAUREN MG 1 PH RA AR H TA MA A BL CY ET LL C GL GO W RI 51 04 07 0 60 30 ME 19 ON Ac SP 07 -0 -2 0. D 62 AN ti ER 90 1- 6- 00 CA 41 ve ID 46 20 20 0 RE 9 DE ON 35 13 13 LAUREN E 6 PH RA 2 AR H MG MA A CY TA BL LL ET C GL GO W LE 68 04 07 0 60 30 ME 19 ON Ac VE 18 -0 -2 0. D 62 AN ti TI 00 1- 6- 00 CA 42 ve RA 11 20 20 0 RE 0 DE CE 30 13 13 LAUREN TA 2 PH RA M AR H 50 MA A 0 CY MG LL TA C BL GL ET GO W DI 62 04 07 0 60 30 ME 19 ON Ac VA 75 -0 -2 0. D 62 AN ti LP 60 1- 6- 00 CA 41 ve RO 79 20 20 0 RE 7 DE EX 81 13 13 LAUREN 3 PH RA SO AR H D MA A DR CY 50 LL 0 C MG GL TA GO B W CI 65 05 07 0 15 30 ME 19 ON Ac TA 16 -1 -0 0. D 28 AN ti LO 20 3- 9- 00 CA 01 ve DE 05 20 20 0 RE 8 DE AM 45 13 13 LAUREN 0 PH RA HB AR H R MA A 40 CY MG LL C TA GL BL ET GO W LE 68 04 06 0 60 30 ME 19 ON Ac VE 18 -0 -2 0. D 04 AN ti TI 00 1- 7- 00 CA 13 ve RA 11 20 20 0 RE 8 DE CE 30 13 13 LAUREN TA 2 PH RA M AR H 50 MA A 0 CY MG LL TA C BL GL ET GO W RI 51 04 06 0 60 30 ME 19 ON Ac SP 07 -0 -2 0. D 04 AN ti ER 90 1- 7- 00 CA 13 ve ID 46 20 20 0 RE 7 DE ON 35 13 13 LAUREN E 6 PH RA 2 AR H MG MA A CY TA BL LL ET C GL GO W DI 62 04 06 0 60 30 ME 19 ON Ac VA 75 -0 -2 0. D 04 AN ti LP 60 1- 7- 00 CA 13 ve RO 79 20 20 0 RE 6 DE EX 71 13 13 LAUREN 3 PH RA SO AR H D MA A DR CY 25 LL 0 C MG GL TA GO B W 62 04 06 0 20 5 ME 19 ON Ac 58 -0 -2 0. D 03 AN ti 40 1- 6- 00 CA 16 ve 74 20 20 0 RE 0 DE 60 13 13 LAUREN 1 PH RA AR H MA A CY LL C GL GO W MA 00 04 06 0 30 5 ME 18 ON Ac PA 90 -0 -2 0. D 98 AN ti P 41 1- 4- 00 CA 70 ve 50 98 20 20 0 RE 7 DE 0 86 13 13 LAUREN MG 1 PH RA AR H TA MA A BL CY ET LL C GL GO W CI 57 05 06 0 15 30 ME 18 ON Ac TA 66 -1 -1 0. D 70 AN ti LO 40 3- 0- 00 CA 44 ve DE 50 20 20 0 RE 0 DE AM 91 13 13 LAUREN 3 PH RA HB AR H R MA A 40 CY MG LL C TA GL BL ET GO W RI 51 04 05 0 60 30 ME 18 ON Ac SP 07 -0 -2 0. D 50 AN ti ER 90 1- 9- 00 CA 26 ve ID 46 20 20 0 RE 3 DE ON 35 13 13 LAUREN E 6 PH RA 2 AR H MG MA A CY TA BL LL ET C GL GO W LE 68 04 05 0 60 30 ME 18 ON Ac VE 18 -0 -2 0. D 50 AN ti TI 00 1- 9- 00 CA 26 ve RA 11 20 20 0 RE 4 DE CE 31 13 13 LAUREN TA 6 PH RA M AR H 50 MA A 0 CY MG LL TA C BL GL ET GO W DI 62 04 05 0 60 30 ME 18 ON Ac VA 75 -0 -2 0. D 50 AN ti LP 60 1- 9- 00 CA 26 ve RO 79 20 20 0 RE 1 DE EX 81 13 13 LAUREN 3 PH RA SO AR H D MA A DR CY 50 LL 0 C MG GL TA GO B W DE 60 04 05 0 12 5 ME 18 ON Ac OM 43 -0 -2 00 D 45 AN ti ET 20 1- 4- .0 CA 18 ve PACK 60 20 20 00 RE 4 DE ZI 81 13 13 LAUREN NE 6 PH RA AR H 6. MA A 25 CY MG LL /5 C GL ML GO SY W RP MU 45 05 05 0 22 5 ME 18 ON Ac PI 80 -0 -2 0. D 39 AN ti RO 20 2- 2- 00 CA 52 ve CI 11 20 20 0 RE 2 DE N 22 13 13 LAUREN 2% 2 PH RA AR H OI MA A NT CY ME NT LL C GL GO W DE 60 04 05 0 12 5 ME 18 ON Ac OM 43 -0 -1 00 D 26 AN ti ET 20 1- 5- .0 CA 43 ve PACK 60 20 20 00 RE 6 DE ZI 81 13 13 LAUREN NE 6 PH RA AR H 6. MA A 25 CY MG LL /5 C GL ML GO SY W RP CI 57 05 05 0 15 30 ME 18 ON Ac TA 66 -1 -1 0. D 22 AN ti LO 40 3- 3- 00 CA 96 ve DE 50 20 20 0 RE 8 DE AM 91 13 13 LAUREN 3 PH RA HB AR H R MA A 40 CY MG LL C TA GL BL ET GO W MU 45 05 05 0 22 30 ME 18 ON Ac PI 80 -0 -0 0. D 04 AN ti RO 20 2- 2- 00 CA 39 ve CI 11 20 20 0 RE 9 DE N 22 13 13 LAUREN 2% 2 PH RA AR H OI MA A NT CY ME NT LL C GL GO W CI 00 04 04 0 15 15 ME 17 ON Ac TA 90 -0 -2 0. D 94 AN ti LO 46 1- 9- 00 CA 40 ve DE 08 20 20 0 RE 8 DE AM 56 13 13 LAUREN 1 PH RA HB AR H R MA A 20 CY MG LL C TA GL BL ET GO W RI 51 04 04 0 60 30 ME 17 ON Ac SP 07 -0 -2 0. D 94 AN ti ER 90 1- 9- 00 CA 40 ve ID 46 20 20 0 RE 9 DE ON 35 13 13 LAUREN E 6 PH RA 2 AR H MG MA A CY TA BL LL ET C GL GO W DI 62 04 04 0 60 30 ME 17 ON Ac VA 75 -0 -2 0. D 94 AN ti LP 60 1- 9- 00 CA 40 ve RO 79 20 20 0 RE 7 DE EX 71 13 13 LAUREN 3 PH RA SO AR H D MA A DR CY 25 LL 0 C MG GL TA GO B W LE 68 04 04 0 60 30 ME 17 ON Ac VE 18 -0 -2 0. D 94 AN ti TI 00 1- 9- 00 CA 41 ve RA 11 20 20 0 RE 0 DE CE 31 13 13 LAUREN TA 6 PH RA M AR H 50 MA A 0 CY MG LL TA C BL GL ET GO W BA 00 04 04 0 28 2 ME 17 ON Ac CI 16 -0 -0 3. D 44 AN ti TR 80 1- 1- 50 CA 81 ve AC 02 20 20 0 RE 0 DE IN 13 13 13 LAUREN -P 1 PH RA OL AR H YM MA A YX CY IN LL OI C NT GL ME NT GO W LO 51 04 04 0 30 5 ME 17 ON Ac PE 07 -0 -0 0. D 44 AN ti RA 90 1- 1- 00 CA 80 ve MO 69 20 20 0 RE 9 DE DE 02 13 13 LAUREN 2 0 PH RA AR H MG MA A CY CA PS LL UL C E GL GO W DI 00 04 04 0 20 5 ME 17 ON Ac PH 90 -0 -0 0. D 44 AN ti EN 45 1- 1- 00 CA 80 ve HY 30 20 [address] 66 13 13 LAUREN AM 1 PH RA IN AR H E MA A 25 CY MG LL C CA GL PS UL GO E W DI 62 04 04 0 60 30 ME 17 ON Ac VA 75 -0 -0 0. D 44 AN ti LP 60 1- 1- 00 CA 79 ve RO 79 20 20 0 RE 0 DE EX 81 13 13 LAUREN 3 PH RA SO AR H D MA A DR CY 50 LL 0 C MG GL TA GO B W PO 62 04 04 0 25 14 ME 17 ON Ac LY 17 -0 -0 50 D 44 AN ti ET 50 1- 1- .0 CA 80 ve HY 44 20 20 00 RE 5 DE LE 21 13 13 LAUREN NE 5 PH RA AR H GL MA A YC CY OL LL 33 C 50 GL PO GO WD W 62 04 04 0 20 5 ME 17 ON Ac 58 -0 -0 0. D 44 AN ti 40 1- 1- 00 CA 80 ve 74 20 20 0 RE 1 DE 60 13 13 LAUREN 1 PH RA AR H MA A CY LL C GL GO W LE 68 04 04 0 60 30 ME 17 ON Ac VE 18 -0 -0 0. D 44 AN ti TI 00 1- 1- 00 CA 79 ve RA 11 20 20 0 RE 4 DE CE 31 13 13 LAUREN TA 6 PH RA M AR H 50 MA A 0 CY MG LL TA C BL GL ET GO W DE 45 04 04 0 30 3 ME 17 ON Ac OM 80 -0 -0 .0 D 44 AN ti ET 20 1- 1- 00 CA 79 ve PACK 75 20 20 RE 6 DE ZI 93 13 13 LAUREN NE 0 PH RA AR H 25 MA A CY MG LL JHA C PP GL OS IT GO OR W Y CI 00 04 04 0 15 15 ME 17 ON Ac TA 90 -0 -0 0. D 44 AN ti LO 46 1- 1- 00 CA 79 ve DE 08 20 20 0 RE 2 DE AM 56 13 13 LAUREN 1 PH RA HB AR H R MA A 20 CY MG LL C TA GL BL ET GO W RI 51 04 04 0 60 30 ME 17 ON Ac SP 07 -0 -0 0. D 44 AN ti ER 90 1- 1- 00 CA 79 ve ID 46 20 20 0 RE 3 DE ON 35 13 13 LAUREN E 6 PH RA 2 AR H MG MA A CY TA BL LL ET C GL GO W MA 00 04 04 0 30 5 ME 17 ON Ac PA 90 -0 -0 0. D 44 AN ti P 41 1- 1- 00 CA 80 ve 50 98 20 20 0 RE 0 DE 0 86 13 13 LAUREN MG 1 PH RA AR H TA MA A BL CY ET LL C GL GO W LE 00 02 02 0 10 10 WA 32 OG Ac VE 05 -2 -2 00 LG 02 NI ti TI 40 8- 8- .0 RE 19 BE ve RA 22 20 20 00 EN 3 NE CE 46 13 13 S TA 3 #4 JU M 89 DY 10 2 A 0 # MG 48 /M [address] HY 00 12 02 11 30 [address] 18 -3 -0 0. UE 66 LD ti OX 50 1- 1- 00 GR 61 ER ve YZ 61 20 20 0 0 IN 50 12 13 S DE E 5 LT BR PA C A M PH L 50 AR MA MG CY CA P LE 68 12 02 11 60 30 BL 61 WI Ac VE 18 -3 -0 0. UE 66 LD ti TI 00 1- 1- 00 GR 60 ER ve RA 11 20 20 0 9 CE 31 12 13 S DE TA 6 LT BR M C A 50 PH L 0 AR MG MA CY TA BL ET 57 12 05 0 12 12 ME 79 NO Ac PI 89 -1 -1 0. D 65 RF ti RI 60 2- 4- 00 CA 78 LE ve N 91 20 20 0 RE 1 ET 81 13 11 12 R 6 PH MG AR HE MA NR CH CY Y EW AB LL LE C TA BL ET LI 00 12 05 0 13 13 ME 79 NO Ac SI 18 -1 -1 0. D 62 RF ti NO 50 2- 3- 00 CA 12 LE ve DE 02 20 20 0 RE 9 ET IL 50 11 12 R 1 PH 2. AR HE 5 MA NR MG CY Y TA LL BL C ET ME 62 11 05 0 24 12 ME 79 NO Ac TF 58 -0 -1 0. D 62 RF ti OR 40 7- 1- 00 CA 13 LE ve MO 45 20 20 0 RE 0 ET N 20 11 12 R HC 1 PH L AR HE 1, MA NR 00 CY Y 0 MG LL C TA BL ET GL 51 11 05 0 13 13 ME 79 NO Ac IP 07 -0 -1 0. D 62 RF ti IZ 90 7- 1- 00 CA 13 LE ve ID 81 20 20 0 RE 7 ET E 02 11 12 R 5 0 PH MG AR HE MA NR TA CY Y BL ET LL C 00 05 05 0 18 18 ME 79 GR Ac 60 -0 -1 0. D 57 OS ti 35 9- 0- 00 CA 36 S ve 09 20 20 0 RE 7 LA 22 12 12 RR 1 PH Y AR MA CY LL C MA 00 11 05 0 26 4 ME 79 CO Ac PA 90 -2 -0 0. D 47 OP ti P 41 8- 7- 00 CA 06 ER ve 32 98 20 20 0 RE 6 5 26 11 12 KENDELL MG 1 PH HN AR G TA MA BL CY ET LL C DI 62 11 04 0 90 30 ME 78 NO Ac VA 75 -0 -1 0. D 98 RF ti LP 60 9- 8- 00 CA 33 LE ve RO 79 20 20 0 RE 0 ET EX 81 11 12 R 3 PH SO AR HE D MA NR DR CY Y 50 LL 0 C MG TA B LI 00 12 04 0 30 30 ME 78 NO Ac SI 18 -1 -1 0. D 91 RF ti NO 50 2- 6- 00 CA 10 LE ve DE 02 20 20 0 RE 8 ET IL 50 11 12 R 1 PH 2. AR HE 5 MA NR MG CY Y TA LL BL C ET GL 51 11 04 0 30 30 ME 78 NO Ac IP 07 -0 -1 0. D 87 RF ti IZ 90 7- 3- 00 CA 68 LE ve ID 81 20 20 0 RE 5 ET E 02 11 12 R 5 0 PH MG AR HE MA NR TA CY Y BL ET LL C 57 12 04 0 30 30 ME 78 NO Ac PI 89 -1 -1 0. D 87 RF ti RI 60 2- 3- 00 CA 68 LE ve N 91 20 20 0 RE 0 ET 81 13 11 12 R 6 PH MG AR HE MA NR CH CY Y EW AB LL LE C TA BL ET ME 62 11 04 0 60 30 ME 78 NO Ac TF 58 -0 -1 0. D 87 RF ti OR 40 7- 3- 00 CA 70 LE ve MO 45 20 20 0 RE 0 ET N 20 11 12 R HC 1 PH L AR HE 1, MA NR 00 CY Y 0 MG LL C TA BL ET 00 12 04 0 30 30 ME 78 NO Ac 60 -1 -0 0. D 75 RF ti 35 5- 9- 00 CA 48 LE ve 09 20 20 0 RE 6 ET 12 11 12 R 8 PH AR HE MA NR CY Y LL C DI 62 11 03 0 90 0 ME 78 NO Ac VA 75 -0 -1 0. D 16 RF ti LP 60 9- 9- 00 CA 99 LE ve RO 79 20 20 0 RE 0 ET EX 81 11 12 R 3 PH SO AR HE D MA NR DR CY Y 50 LL 0 C MG TA B ME 62 11 03 0 60 0 ME 78 NO Ac TF 58 -0 -1 0. D 13 RF ti OR 40 7- 6- 00 CA 98 LE ve MO 45 20 20 0 RE 5 ET N 20 11 12 R HC 1 PH L AR HE 1, MA NR 00 CY Y 0 MG LL C TA BL ET 63 12 03 0 30 0 ME 78 NO Ac PI 73 -1 -1 0. D 07 RF ti RI 90 2- 4- 00 CA 02 LE ve N 43 20 20 0 RE 7 ET 81 40 11 12 R 1 PH MG AR HE MA NR CH CY Y EW AB LL LE C TA BL ET GL 51 11 03 0 30 0 ME 78 NO Ac IP 07 -0 -1 0. D 07 RF ti IZ 90 7- 4- 00 CA 02 LE ve ID 81 20 20 0 RE 6 ET E 02 11 12 R 5 0 PH MG AR HE MA NR TA CY Y BL ET LL C LI 00 12 03 0 30 0 ME 78 NO Ac SI 18 -1 -1 0. D 07 RF ti NO 50 2- 4- 00 CA 02 LE ve DE 02 20 20 0 RE 9 ET IL 50 11 12 R 1 PH 2. AR HE 5 MA NR MG CY Y TA LL BL C ET 00 12 03 0 30 0 ME 77 NO Ac 60 -1 -0 0. D 99 RF ti 35 5- 9- 00 CA 32 LE ve 09 20 20 0 RE 5 ET 12 11 12 R 8 PH AR HE MA NR CY Y LL C ME 62 11 02 0 60 0 ME 75 NO Ac TF 58 -0 -1 0. D 73 RF ti OR 40 7- 5- 00 CA 52 LE ve MO 45 20 20 0 RE 9 ET N 20 11 12 R HC 1 PH L AR HE 1, MA NR 00 CY Y 0 MG LL C TA BL ET DI 62 11 02 0 90 0 ME 75 NO Ac VA 75 -0 -1 0. D 73 RF ti LP 60 9- 5- 00 CA 52 LE ve RO 79 20 20 0 RE 8 ET EX 81 11 12 R 3 PH SO AR HE D MA NR DR CY Y 50 LL 0 C MG TA B GL 51 11 02 0 30 0 ME 75 NO Ac IP 07 -0 -1 0. D 66 RF ti IZ 90 7- 0- 00 CA 54 LE ve ID 81 20 20 0 RE 2 ET E 02 11 12 R 5 0 PH MG AR HE MA NR TA CY Y BL ET LL C LI 00 12 02 0 30 0 ME 75 NO Ac SI 18 -1 -1 0. D 66 RF ti NO 50 2- 0- 00 CA 53 LE ve DE 02 20 20 0 RE 6 ET IL 50 11 12 R 1 PH 2. AR HE 5 MA NR MG CY Y TA LL BL C ET 63 12 02 0 30 0 ME 75 NO Ac PI 73 -1 -1 0. D 66 RF ti RI 90 2- 0- 00 CA 54 LE ve N 43 20 20 0 RE 0 ET 81 40 11 12 R 1 PH MG AR HE MA NR CH CY Y EW AB LL LE C TA BL ET 00 12 02 0 30 0 ME 75 NO Ac 60 -1 -0 0. D 61 RF ti 35 5- 8- 00 CA 50 LE ve 09 20 20 0 RE 0 ET 12 11 12 R 8 PH AR HE MA NR CY Y LL C DI 62 11 01 0 90 0 ME 71 NO Ac VA 75 -0 -1 0. D 70 RF ti LP 60 9- 6- 00 CA 46 LE ve RO 79 20 20 0 RE 7 ET EX 81 11 12 R 3 PH SO AR HE D MA NR DR CY Y 50 LL 0 C MG TA B MA 00 11 01 0 30 0 ME 71 CO Ac PA 90 -2 -1 0. D 70 OP ti P 41 8- 6- 00 CA 45 ER ve 32 98 20 20 0 RE 7 5 26 11 12 KENDELL MG 1 PH HN AR G TA MA BL CY ET LL C ME 68 11 01 0 60 0 ME 70 NO Ac TF 38 -0 -1 0. D 66 RF ti OR 20 7- 3- 00 CA 88 LE ve MO 03 20 20 0 RE 4 ET N 01 11 12 R HC 0 PH L AR HE 1, MA NR 00 CY Y 0 MG LL C TA BL ET GL 51 11 01 0 30 0 ME 70 NO Ac IP 07 -0 -1 0. D 66 RF ti IZ 90 7- 3- 00 CA 88 LE ve ID 81 20 20 0 RE 6 ET E 02 11 12 R 5 0 PH MG AR HE MA NR TA CY Y BL ET LL C 63 12 01 0 30 0 ME 70 NO Ac PI 73 -1 -1 0. D 66 RF ti RI 90 2- 3- 00 CA 89 LE ve N 43 20 20 0 RE 2 ET 81 40 11 12 R 1 PH MG AR HE MA NR CH CY Y EW AB LL LE C TA BL ET LI 00 12 01 0 30 0 ME 70 NO Ac SI 18 -1 -1 0. D 66 RF ti NO 50 2- 3- 00 CA 89 LE ve DE 02 20 20 0 RE 0 ET IL 50 11 12 R 1 PH 2. AR HE 5 MA NR MG CY Y TA LL BL C ET 00 12 01 0 30 0 ME 70 NO Ac 60 -1 -1 0. D 64 RF ti 35 5- 1- 00 CA 33 LE ve 09 20 20 0 RE 9 ET 12 11 12 R 8 PH AR HE MA NR CY Y LL C DI 62 11 12 0 90 30 ME 70 NO Ac VA 75 -0 -1 .0 D 39 RF ti LP 60 9- 6- 00 CA 37 LE ve RO 79 20 20 RE 7 ET EX 81 11 11 R 3 PH SO AR HE D MA NR DR CY Y 50 LL 0 C MG TA B GL 51 11 12 0 30 30 ME 70 NO Ac IP 07 -0 -1 .0 D 39 RF ti IZ 90 7- 6- 00 CA 37 LE ve ID 81 20 20 RE 8 ET E 02 11 11 R 5 0 PH MG AR HE MA NR TA CY Y BL ET LL C ME 68 11 12 0 60 30 ME 70 NO Ac TF 38 -0 -1 .0 D 39 RF ti OR 20 7- 6- 00 CA 37 LE ve MO 03 20 20 RE 9 ET N 01 11 11 R HC 0 PH L AR HE 1, MA NR 00 CY Y 0 MG LL C TA BL ET 00 12 12 0 30 30 ME 50 NO Ac 60 -1 -1 .0 D 02 RF ti 35 5- 5- 00 CA 95 LE ve 09 20 20 RE 8 ET 12 11 11 R 8 PH AR HE MA NR CY Y LL C LI 00 12 12 2 30 30 ME 37 NO Ac SI 18 -1 -1 .0 D 73 RF ti NO 50 2- 2- 00 CA 67 LE ve DE 02 20 20 RE ET IL 50 11 11 R 1 PH 2. AR HE 5 MA NR MG CY Y TA LL BL C ET 63 12 12 2 30 30 ME 37 NO Ac PI 73 -1 -1 .0 D 73 RF ti RI 90 2- 2- 00 CA 81 LE ve N 43 20 20 RE ET 81 40 11 11 R 1 PH MG AR HE MA NR CH CY Y EW AB LL LE C TA BL ET 00 11 11 0 12 3 ME 35 CO Ac 12 -1 -2 0. D 83 OP ti 10 8- 9- 00 CA 88 ER ve 63 20 20 0 RE 81 11 11 KENDELL 6 PH HN AR G MA CY LL C MA 00 11 11 0 30 5 ME 36 CO Ac PA 90 -2 -2 .0 D 43 OP ti P 41 8- 8- 00 CA 30 ER ve 32 98 20 20 RE 5 26 11 11 KENDELL MG 1 PH HN AR G TA MA BL CY ET LL C RI 51 11 11 2 60 30 ME 36 NO Ac SP 07 -2 -2 .0 D 10 RF ti ER 90 2- 5- 00 CA 68 LE ve ID 46 20 20 RE ET ON 45 11 11 R E 6 PH 3 AR HE MG MA NR CY Y TA BL LL ET C 00 11 11 1 12 3 ME 35 CO Ac 12 -1 -1 0. D 83 OP ti 10 8- 8- 00 CA 88 ER ve 63 20 20 0 RE 81 11 11 KENDELL 6 PH HN AR G MA CY LL C MA 00 11 11 0 30 5 ME 35 CO Ac PA 90 -1 -1 .0 D 83 OP ti P 41 8- 8- 00 CA 92 ER ve 32 98 20 20 RE 5 26 11 11 KENDELL MG 1 PH HN AR G TA MA BL CY ET LL C ME 68 11 11 0 60 30 ME 16 NO Ac TF 38 -0 -1 .0 D 74 RF ti OR 20 7- 6- 00 CA 15 LE ve MO 03 20 20 RE ET N 01 11 11 R HC 0 PH L AR HE 1, MA NR 00 CY Y 0 MG LL C TA BL ET GL 51 11 11 0 30 30 ME 16 NO Ac IP 07 -0 -1 .0 D 74 RF ti IZ 90 7- 4- 00 CA 21 LE ve ID 81 20 20 RE ET E 02 11 11 R 5 0 PH MG AR HE MA NR TA CY Y BL ET LL C RI 51 11 11 0 60 30 ME 16 NO Ac SP 07 -0 -1 .0 D 74 RF ti ER 90 7- 4- 00 CA 23 LE ve ID 46 20 20 RE ET ON 35 11 11 R E 6 PH 2 AR HE MG MA NR CY Y TA BL LL ET C 63 11 11 0 30 30 ME 16 NO Ac PI 73 -0 -1 .0 D 74 RF ti RI 90 7- 4- 00 CA 25 LE ve N 43 20 20 RE ET 81 40 11 11 R 1 PH MG AR HE MA NR CH CY Y EW AB LL LE C TA BL ET LI 00 11 11 0 30 30 ME 16 NO Ac SI 18 -0 -1 .0 D 74 RF ti NO 50 7- 4- 00 CA 19 LE ve DE 02 20 20 RE ET IL 50 11 11 R 1 PH 2. AR HE 5 MA NR MG CY Y TA LL BL C ET DI 62 11 11 2 90 30 ME 35 NO Ac VA 75 -0 -1 .0 D 38 RF ti LP 60 9- 1- 00 CA 28 LE ve RO 79 20 20 RE ET EX 81 11 11 R 3 PH SO AR HE D MA NR DR CY Y 50 LL 0 C MG TA B CI 00 11 11 2 15 30 ME 18 NO Ac TA 18 -0 -0 .0 D 00 RF ti LO 50 7- 9- 00 CA 76 LE ve DE 37 20 20 RE ET AM 30 11 11 R 1 PH HB AR HE R MA NR 40 CY Y MG LL C TA BL ET ME 68 09 10 3 60 30 ME 59 NO Ac TF 38 -1 -1 .0 D 43 RF ti OR 20 6- 4- 00 CA 62 LE ve MO 03 20 20 RE 5 ET N 01 11 11 R HC 0 PH L AR HE 1, MA NR 00 CY Y 0 MG LL C TA BL ET GL 51 09 10 3 30 30 ME 59 NO Ac IP 07 -1 -1 .0 D 43 RF ti IZ 90 6- 4- 00 CA 63 LE ve ID 81 20 20 RE 5 ET E 02 11 11 R 5 0 PH MG AR HE MA NR TA CY Y BL ET LL C RI 51 09 10 3 60 30 ME 59 NO Ac SP 07 -1 -1 .0 D 43 RF ti ER 90 6- 4- 00 CA 63 LE ve ID 46 20 20 RE 6 ET ON 35 11 11 R E 6 PH 2 AR HE MG MA NR CY Y TA BL LL ET C CI 00 10 10 3 15 30 ME 60 GR Ac TA 18 -1 -1 .0 D 16 OS ti LO 50 3- 3- 00 CA 01 S ve DE 37 20 20 RE 4 LA AM 30 11 11 RR 1 PH Y HB AR R MA 40 CY MG LL C TA BL ET DI 62 09 10 3 60 30 ME 59 NO Ac VA 75 -1 -1 .0 D 43 RF ti LP 60 6- 2- 00 CA 63 LE ve RO 79 20 20 RE 1 ET EX 81 11 11 R 3 PH SO AR HE D MA NR DR CY Y 50 LL 0 C MG TA B LI 00 09 10 3 30 30 ME 59 NO Ac SI 18 -1 -1 .0 D 43 RF ti NO 50 6- 2- 00 CA 63 LE ve DE 02 20 20 RE 3 ET IL 50 11 11 R 1 PH 2. AR HE 5 MA NR MG CY Y TA LL BL C ET 63 09 10 3 30 30 ME 59 NO Ac PI 73 -1 -1 .0 D 43 RF ti RI 90 6- 2- 00 CA 63 LE ve N 43 20 20 RE 7 ET 81 40 11 11 R 1 PH MG AR HE MA NR CH CY Y EW AB LL LE C TA BL ET ME 68 09 09 3 60 30 ME 59 NO Ac TF 38 -1 -1 .0 D 43 RF ti OR 20 6- 6- 00 CA 62 LE ve MO 03 20 20 RE 5 ET N 01 11 11 R HC 0 PH L AR HE 1, MA NR 00 CY Y 0 MG LL C TA BL ET DI 62 09 09 3 60 30 ME 59 NO Ac VA 75 -1 -1 .0 D 43 RF ti LP 60 6- 6- 00 CA 63 LE ve RO 79 20 20 RE 1 ET EX 81 11 11 R 3 PH SO AR HE D MA NR DR CY Y 50 LL 0 C MG TA B LI 00 09 09 3 30 30 ME 59 NO Ac SI 18 -1 -1 .0 D 43 RF ti NO 50 6- 6- 00 CA 63 LE ve DE 02 20 20 RE 3 ET IL 50 11 11 R 1 PH 2. AR HE 5 MA NR MG CY Y TA LL BL C ET GL 51 09 09 3 30 30 ME 59 NO Ac IP 07 -1 -1 .0 D 43 RF ti IZ 90 6- 6- 00 CA 63 LE ve ID 81 20 20 RE 5 ET E 02 11 11 R 5 0 PH MG AR HE MA NR TA CY Y BL ET LL C RI 51 09 09 3 60 30 ME 59 NO Ac SP 07 -1 -1 .0 D 43 RF ti ER 90 6- 6- 00 CA 63 LE ve ID 46 20 20 RE 6 ET ON 35 11 11 R E 6 PH 2 AR HE MG MA NR CY Y TA BL LL ET C 63 09 09 3 30 30 ME 59 NO Ac PI 73 -1 -1 .0 D 43 RF ti RI 90 6- 6- 00 CA 63 LE ve N 43 20 20 RE 7 ET 81 40 11 11 R 1 PH MG AR HE MA NR CH CY Y EW AB LL LE C TA BL ET DI 00 09 09 1 60 30 LE 62 MA Ac VA 24 -0 -1 .0 XI 07 ZL ti LP 50 6- 5- 00 NG 89 OO ve RO 18 20 20 TO 6 MD EX 21 11 11 N OO [address] SO YE D TT CA DR E ME CO LL 50 UN IA 0 TY S MG HE TA AL B T GL 00 09 09 6 30 30 LE 62 KENDELL Ac IP 59 -1 -1 .0 XI 07 HN ti IZ 10 4- 4- 00 NG 74 SO ve ID 46 20 20 TO 1 N E 00 11 11 N SH 5 1 FA EI MG YE LA TT A TA E BL CO ET UN TY HE AL T LI 00 09 09 6 30 30 LE 62 KENDELL Ac SI 18 -1 -1 .0 XI 07 HN ti NO 50 4- 4- 00 NG 74 SO ve DE 02 20 20 TO 2 N IL 50 11 11 N SH 1 FA EI 2. YE LA 5 TT A MG E CO TA UN BL TY ET HE AL T 00 09 09 6 30 30 LE 62 KENDELL Ac PI 60 -1 -1 .0 XI 07 HN ti RI 30 4- 4- 00 NG 74 SO ve N 02 20 20 TO 3 N EC 62 11 11 N SH 2 FA EI 81 YE LA TT A MG E CO TA UN BL TY ET HE AL T RI 50 09 09 0 60 30 LE 62 KENDELL Ac SP 45 -1 -1 .0 XI 07 HN ti ER 80 4- 4- 00 NG 74 SO ve ID 59 20 20 TO 4 N ON 36 11 11 N SH E 0 FA EI 2 YE LA MG TT A E TA CO BL UN ET TY HE AL T ME 68 09 09 6 60 30 LE 62 KENDELL Ac TF 38 -1 -1 .0 XI 07 HN ti OR 20 4- 4- 00 NG 74 SO ve MO 03 20 20 TO 5 N N 00 11 11 N SH HC 1 FA EI L YE LA 1, TT A 00 E 0 CO MG UN TY TA BL HE ET AL T KE 45 09 09 6 12 15 LE 62 KENDELL Ac TO 80 -1 -1 0. XI 07 HN ti CO 20 4- 4- 00 NG 74 SO ve NA 46 20 20 0 TO 7 N ZO 56 11 11 N SH LE 4 FA EI YE LA 2% TT A E SH CO AM UN PO TY O HE AL T ZY 00 07 07 1 30 30 WA 71 RO Ac DE 00 -2 -2 .0 L- 00 BE ti EX 24 8- 9- 00 MA 71 RT ve A 11 20 20 RT 0 S 5 53 11 11 MA MG 0 PH RV AR IN TA MA D BL CY ET # 10 27 83 ME 00 07 07 1 60 30 WA 71 RO Ac TF 78 -2 -2 .0 L- 00 BE ti OR 15 8- 9- 00 MA 71 RT ve MO 05 20 20 RT 1 S N 26 11 11 MA HC 1 PH RV L AR IN 1, MA D 00 CY 0 # MG 10 TA 27 BL 83 ET DI 00 07 07 0 60 30 WA 71 RO Ac VA 37 -2 -2 .0 L- 00 BE ti LP 81 8- 9- 00 MA 71 RT ve RO 04 20 20 RT 2 S EX 50 11 11 MA 1 PH RV SO AR IN D MA D DR CY # 50 0 10 MG 27 83 TA B SI 54 07 07 0 30 30 WA 71 RO Ac MV 45 -2 -2 .0 L- 00 BE ti 80 8- 9- 00 MA 71 RT ve TA 93 20 20 RT 4 S TI 31 11 11 MA N 0 PH RV 20 AR IN MA D MG CY # TA BL 10 ET 27 83 ZY 00 07 07 1 14 14 76 GR Ac DE 00 -1 -1 .0 86 OS ti EX 24 3- 3- 00 94 S ve A 42 20 20 LA 20 03 11 11 RR 0 Y MG TA BL ET RI 00 07 07 0 60 30 76 VA Ac SP 09 -0 -0 .0 82 IS ti ER 37 6- 8- 00 84 H ve ID 24 20 20 SH ON 30 11 11 RI E 6 4 MG TA BL ET ME 68 07 07 0 42 21 76 VA Ac TF 38 -0 -0 .0 82 IS ti OR 20 6- 8- 00 83 H ve MO 03 20 20 SH N 00 11 11 RI HC 5 L 1, 00 0 MG TA BL ET SI 68 07 07 0 21 21 76 VA Ac MV 38 -0 -0 .0 82 IS ti 20 6- 8- 00 85 H ve TA 06 20 20 SH TI 71 11 11 RI N 0 20 MG TA BL ET DI 00 07 07 0 41 21 76 VA Ac VA 24 -0 -0 .0 82 IS ti LP 50 6- 8- 00 86 H ve RO 18 20 20 SH EX 21 11 [address] 50 0 MG TA B PA 13 05 06 5 30 30 CO 60 PI Ac RO 10 -1 -1 .0 MARINA 84 NG ti XE 70 3- 5- 00 MB 11 ve TI 15 20 20 IA DE NE 59 11 11 BB 9 PH IE HC AR L MA 20 CY MG TA BL ET JA 00 05 06 5 30 30 CO 60 PI Ac NU 00 -1 -1 .0 MARINA 84 NG ti 60 3- 5- 00 MB 12 ve A 27 20 20 IA DE 10 73 11 11 BB 0 1 PH IE MG AR MA TA CY BL ET FI 00 05 06 5 60 30 CO 60 PI Ac SH 90 -1 -1 .0 MARINA 84 NG ti 44 3- 5- 00 MB 13 ve OI 04 20 20 IA DE L 36 11 11 BB 1, 0 PH IE 00 AR 0 MA MG CY CA PS UL E RI 50 06 06 1 30 30 CO 61 AA Ac SP 45 -0 -0 .0 MARINA 31 RO ti ER 80 9- 9- 00 MB 90 N ve ID 59 20 20 IA PH ON 25 11 11 IL E 0 PH LI 1 AR P MG MA R CY TA BL ET SI 68 05 06 6 30 30 CO 60 PI Ac MV 18 -0 -0 .0 MARINA 67 NG ti 00 3- 6- 00 MB 94 ve TA 47 20 20 IA DE TI 90 11 11 BB N 3 PH IE 20 AR MA MG CY TA BL ET ZY 00 05 06 6 30 30 CO 60 PI Ac DE 00 -0 -0 .0 MARINA 67 NG ti EX 24 3- 6- 00 MB 95 ve A 42 20 20 IA DE 20 03 11 11 BB 0 PH IE MG AR MA TA CY BL ET DI 00 05 06 6 60 30 CO 60 PI Ac VA 09 -0 -0 .0 MARINA 67 NG ti LP 37 3- 6- 00 MB 96 ve RO 44 20 20 IA DE EX 10 11 11 BB 5 PH IE SO AR D MA DR CY 50 0 MG TA B ME 57 05 06 6 60 30 CO 60 PI Ac TF 66 -0 -0 .0 MARINA 67 NG ti OR 40 3- 6- 00 MB 98 ve MO 47 20 20 IA DE N 45 11 11 BB HC 8 PH IE L AR 1, MA 00 CY 0 MG TA BL ET PA 13 05 05 5 30 30 CO 60 PI Ac RO 10 -1 -1 .0 MARINA 84 NG ti XE 70 3- 3- 00 MB 11 ve TI 15 20 20 IA DE NE 59 11 11 BB 9 PH IE HC AR L MA 20 CY MG TA BL ET JA 00 05 05 5 30 30 CO 60 PI Ac NU 00 -1 -1 .0 MARINA 84 NG ti 60 3- 3- 00 MB 12 ve A 27 20 20 IA DE 10 73 11 11 BB 0 1 PH IE MG AR MA TA CY BL ET FI 00 05 05 5 60 30 CO 60 PI Ac SH 90 -1 -1 .0 MARINA 84 NG ti 44 3- 3- 00 MB 13 ve OI 04 20 20 IA DE L 36 11 11 BB 1, 0 PH IE 00 AR 0 MA MG CY CA PS UL E ME 68 04 04 0 60 30 CV 53 MU Ac TF 38 -1 -2 .0 S 53 LB ti OR 20 6- 1- 00 PH 49 ER ve MO 03 20 20 AR RY N 01 11 11 MA HC 0 CY BR L # IA 1, N 00 06 T 0 33 MG 8 TA BL ET DI 00 04 04 0 60 30 CV 53 GR Ac VA 09 -1 -2 .0 S 52 OS ti LP 37 5- 1- 00 PH 57 S ve RO 44 20 20 AR LA EX 10 11 11 MA RR 1 CY Y SO # D DR 06 33 50 8 0 MG TA B ZY 00 04 04 0 30 30 CV 53 GR Ac DE 00 -1 -1 .0 S 52 OS ti EX 24 5- 8- 00 PH 55 S ve A 42 20 20 AR LA 20 03 11 11 MA RR 0 CY Y MG # TA 06 BL 33 ET 8 SI 16 04 04 0 30 30 CV 53 MU Ac MV 72 -1 -1 .0 S 53 LB ti 90 6- 6- 00 PH 50 ER ve TA 00 20 20 AR RY TI 51 11 11 MA N 5 CY BR 20 # IA N MG 06 T 33 TA 8 BL ET ZY 00 04 04 0 20 5 CV 53 AA Ac DE 00 -1 -1 .0 S 53 RO ti EX 24 6- 6- 00 PH 54 N ve A 11 20 20 AR PH 5 53 11 11 MA IL MG 0 CY LI # P TA R BL 06 ET 33 8 DI 62 01 03 3 16 16 ME 52 NO Ac VA 75 -2 -3 .0 D 40 RF ti LP 60 4- 0- 00 CA 53 LE ve RO 79 20 20 RE 7 ET EX 71 11 11 R 3 PH SO AR HE D MA NR DR CY Y 25 LL 0 C MG TA B MA 00 03 03 3 30 5 ME 53 NO Ac PA 90 -0 -3 .0 D 66 RF ti P 41 4- 0- 00 CA 21 LE ve 32 98 20 20 RE 5 ET 5 26 11 11 R MG 1 PH AR HE TA MA NR BL CY Y ET LL C CY 68 03 03 3 20 10 ME 54 CO Ac CL 08 -2 -2 .0 D 30 OP ti OB 40 5- 5- 00 CA 36 ER ve EN 39 20 20 RE 2 ZA 70 11 11 KENDELL DE 1 PH HN IN AR G E MA 10 CY MG LL C TA BL ET 00 03 03 3 20 10 ME 54 CO Ac 09 -2 -2 .0 D 30 OP ti 30 5- 5- 00 CA 37 ER ve 14 20 20 RE 2 99 11 11 KENDELL 3 PH HN AR G MA CY LL C ME 68 02 03 3 39 20 ME 53 NO Ac TF 38 -2 -2 .0 D 43 RF ti OR 20 5- 5- 00 CA 30 LE ve MO 03 20 20 RE 4 ET N 01 11 11 R HC 0 PH L AR HE 1, MA NR 00 CY Y 0 MG LL C TA BL ET PO 51 02 03 3 25 15 ME 53 NO Ac LY 99 -2 -2 5. D 43 RF ti ET 10 5- 3- CA 86 LE ve HY 45 20 20 0 RE 8 ET LE 75 11 11 R NE 8 PH AR HE GL MA NR YC CY Y OL LL 33 C 50 PO WD DI 62 02 03 3 39 20 ME 53 NO Ac VA 75 -2 -2 .0 D 36 RF ti LP 60 3- 3- 00 CA 27 LE ve RO 79 20 20 RE 3 ET EX 81 11 11 R 3 PH SO AR HE D MA NR DR CY Y 50 LL 0 C MG TA B MA 00 03 03 3 30 5 ME 53 NO Ac PA 90 -0 -2 .0 D 66 RF ti P 41 4- 1- 00 CA 21 LE ve 32 98 20 20 RE 5 ET 5 26 11 11 R MG 1 PH AR HE TA MA NR BL CY Y ET LL C DE 68 11 03 3 18 3 ME 50 NO Ac OM 38 -0 -1 .0 D 15 RF ti ET 20 6- 8- 00 CA 95 LE ve PACK 04 20 20 RE 1 ET ZI 11 10 11 R NE 0 PH AR HE 25 MA NR CY Y MG LL TA C BL ET SI 68 01 03 3 30 30 ME 52 NO Ac MV 38 -2 -1 .0 D 49 RF ti 20 6- 8- 00 CA 03 LE ve TA 06 20 20 RE 5 ET TI 71 11 11 R N 0 PH 20 AR HE MA NR MG CY Y TA LL BL C ET MA 00 03 03 3 30 5 ME 53 NO Ac PA 90 -0 -1 .0 D 66 RF ti P 41 4- 4- 00 CA 21 LE ve 32 98 20 20 RE 5 ET 5 26 11 11 R MG 1 PH AR HE TA NAVEEN NR BL CY Y ET LL C 00 01 03 3 30 30 ME 51 NO Ac 00 -1 -1 .0 D 98 RF ti 24 0- 1- 00 CA 01 LE ve 42 20 20 RE 0 ET 03 11 11 R 3 PH AR HE MA NR CY Y LL C MA 00 03 03 3 30 5 ME 53 NO Ac PA 90 -0 -0 .0 D 66 RF ti P 41 4- 4- 00 CA 21 LE ve 32 98 20 20 RE 5 ET 5 26 11 11 R MG 1 PH AR HE STEVE HODGE NR BL CY Y ET LL C ME 68 02 02 3 60 30 ME 53 NO Ac TF 38 -2 -2 .0 D 43 RF ti OR 20 5- 5- 00 CA 30 LE ve MO 03 20 20 RE 4 ET N 01 11 11 R HC 0 PH L AR HE 1, MA NR 00 CY Y 0 MG LL C TA BL ET PO 51 02 02 3 25 15 ME 53 NO Ac LY 99 -2 -2 5. D 43 RF ti ET 10 5- 5- 00 CA 86 LE ve HY 45 20 20 0 RE 8 ET LE 75 11 11 R NE 8 PH AR HE GL MA NR YC CY Y OL LL 33 C 50 PO WD MA 00 01 02 3 30 5 ME 52 NO Ac PA 90 -2 -2 .0 D 55 RF ti P 41 8- 3- 00 CA 55 LE ve 32 98 20 20 RE 5 ET 5 26 11 11 R MG 1 PH AR HE TA MA NR BL CY Y ET LL C DI 62 02 02 3 60 30 ME 53 NO Ac VA 75 -2 -2 .0 D 36 RF ti LP 60 3- 3- 00 CA 27 LE ve RO 79 20 20 RE 3 ET EX 81 11 11 R 3 PH SO AR HE D MA NR DR CY Y 50 LL 0 C MG TA B DI 62 01 02 3 30 30 ME 52 NO Ac VA 75 -2 -2 .0 D 40 RF ti LP 60 4- 1- 00 CA 53 LE ve RO 79 20 20 RE 7 ET EX 71 11 11 R 3 PH SO AR HE D MA NR DR CY Y 25 LL 0 C MG TA B SI 68 01 02 3 30 30 ME 52 NO Ac MV 38 -2 -1 .0 D 49 RF ti 20 6- 9- 00 CA 03 LE ve TA 06 20 20 RE 5 ET TI 71 11 11 R N 0 PH 20 AR HE MA NR MG CY Y TA LL BL C ET MA 00 01 02 3 30 5 ME 52 NO Ac PA 90 -2 -1 .0 D 55 RF ti P 41 8- 4- 00 CA 55 LE ve 32 98 20 20 RE 5 ET 5 26 11 11 R MG 1 PH AR HE TA MA NR BL CY Y ET LL C 00 01 02 3 30 30 ME 51 NO Ac 00 -1 -0 .0 D 98 RF ti 24 0- 7- 00 CA 01 LE ve 42 20 20 RE 0 ET 03 11 11 R 3 PH AR HE MA NR CY Y LL C MA 00 01 02 3 30 5 ME 52 NO Ac PA 90 -2 -0 .0 D 55 RF ti P 41 8- 4- 00 CA 55 LE ve 32 98 20 20 RE 5 ET 5 26 11 11 R MG 1 PH AR HE TA MA NR BL CY Y ET LL C PO 51 11 01 3 25 15 ME 50 NO Ac LY 99 -0 -3 5. D 06 RF ti ET 10 3- 1- 00 CA 27 LE ve HY 45 20 20 0 RE 8 ET LE 75 10 11 R NE 8 PH AR HE GL MA NR YC CY Y OL LL 33 C 50 PO WD MA 00 01 01 3 30 5 ME 52 NO Ac PA 90 -2 -2 .0 D 55 RF ti P 41 8- 8- 00 CA 55 LE ve 32 98 20 20 RE 5 ET 5 26 11 11 R MG 1 PH AR HE TA MA NR BL CY Y ET LL C SI 68 01 01 3 30 30 ME 52 NO Ac MV 38 -2 -2 .0 D 49 RF ti 20 6- 6- 00 CA 03 LE ve TA 06 20 20 RE 5 ET TI 71 11 11 R N 0 PH 20 AR HE MA NR MG CY Y TA LL BL C ET ME 62 01 01 3 60 30 ME 52 NO Ac TF 58 -2 -2 .0 D 49 RF ti OR 40 6- 6- 00 CA 03 LE ve MO 25 20 20 RE 7 ET N 90 11 11 R HC 1 PH L AR HE 50 MA NR 0 CY Y MG LL TA C BL ET DI 62 01 01 3 30 30 ME 52 NO Ac VA 75 -2 -2 .0 D 40 RF ti LP 60 4- 4- 00 CA 53 LE ve RO 79 20 20 RE 7 ET EX 71 11 11 R 3 PH SO AR HE D MA NR DR CY Y 25 LL 0 C MG TA B DI 62 08 01 3 60 30 ME 48 NO Ac VA 75 -2 -2 .0 D 19 RF ti LP 60 5- 1- 00 CA 75 LE ve RO 79 20 20 RE 9 ET EX 81 10 11 R 3 PH SO AR HE D MA NR DR CY Y 50 LL 0 C MG TA B 00 08 01 3 42 7 ME 47 NO Ac 12 -1 -1 0. D 94 RF ti 10 6- 7- 00 CA 26 LE ve 63 20 20 0 RE 1 ET 81 10 11 R 6 PH AR HE MA NR CY Y LL C MA 00 12 01 3 30 5 ME 51 NO Ac PA 90 -2 -1 .0 D 54 RF ti P 41 4- 7- 00 CA 91 LE ve 32 98 20 20 RE 6 ET 5 26 10 11 R MG 1 PH AR HE TA MA NR BL CY Y ET LL C PO 51 11 01 3 25 15 ME 50 NO Ac LY 99 -0 -1 5. D 06 RF ti ET 10 3- 0- 00 CA 27 LE ve HY 45 20 20 0 RE 8 ET LE 75 10 11 R NE 8 PH AR HE GL MA NR YC CY Y OL LL 33 C 50 PO WD MA 00 12 01 3 30 5 ME 51 NO Ac PA 90 -2 -1 .0 D 54 RF ti P 41 4- 0- 00 CA 91 LE ve 32 98 20 20 RE 6 ET 5 26 10 11 R MG 1 PH AR HE TA MA NR BL CY Y ET LL C 00 01 01 3 30 30 ME 51 NO Ac 00 -1 -1 .0 D 98 RF ti 24 0- 0- 00 CA 01 LE ve 42 20 20 RE 0 ET 03 11 11 R 3 PH AR HE MA NR CY Y LL C DE 68 11 01 3 18 3 ME 50 NO Ac OM 38 -0 -0 .0 D 15 RF ti ET 20 6- 7- 00 CA 95 LE ve PACK 04 20 20 RE 1 ET ZI 11 10 11 R NE 0 PH AR HE 25 MA NR CY Y MG LL TA C BL ET MA 00 12 01 3 30 5 ME 51 NO Ac PA 90 -2 -0 .0 D 54 RF ti P 41 4- 3- 00 CA 91 LE ve 32 98 20 20 RE 6 ET 5 26 10 11 R MG 1 PH AR HE TA MA NR BL CY Y ET LL C DI 62 08 12 3 30 30 ME 47 NO Ac VA 75 -0 -2 .0 D 57 RF ti LP 60 2- 7- 00 CA 10 LE ve RO 79 20 20 RE 9 ET EX 71 10 10 R 3 PH SO AR HE D MA NR DR CY Y 25 LL 0 C MG TA B PO 51 11 12 3 25 15 ME 50 NO Ac LY 99 -0 -2 5. D 06 RF ti ET 10 3- 4- 00 CA 27 LE ve HY 45 20 20 0 RE 8 ET LE 75 10 10 R NE 8 PH AR HE GL MA NR YC CY Y OL LL 33 C 50 PO WD DI 62 08 12 3 60 30 ME 48 NO Ac VA 75 -2 -2 .0 D 19 RF ti LP 60 5- 4- 00 CA 75 LE ve RO 79 20 20 RE 9 ET EX 81 10 10 R 3 PH SO AR HE D MA NR DR CY Y 50 LL 0 C MG TA B MA 00 12 12 3 30 5 ME 51 NO Ac PA 90 -2 -2 .0 D 54 RF ti P 41 4- 4- 00 CA 91 LE ve 32 98 20 20 RE 6 ET 5 26 10 10 R MG 1 PH AR HE TA MA NR BL CY Y ET LL C MA 00 11 12 3 30 5 ME 50 NO Ac PA 90 -2 -1 .0 D 60 RF ti P 41 3- 5- 00 CA 61 LE ve 32 98 20 20 RE 5 ET 5 26 10 10 R MG 1 PH AR HE TA MA NR BL CY Y ET LL C 00 09 12 3 30 30 ME 48 NO Ac 00 -1 -0 .0 D 62 RF ti 24 0- 8- 00 CA 88 LE ve 42 20 20 RE 8 ET 03 10 10 R 3 PH AR HE MA NR CY Y LL C MA 00 11 12 3 30 5 ME 50 NO Ac PA 90 -2 -0 .0 D 60 RF ti P 41 3- 8- 00 CA 61 LE ve 32 98 20 20 RE 5 ET 5 26 10 10 R MG 1 PH AR HE TA MA NR BL CY Y ET LL C PO 51 11 12 3 25 15 ME 50 NO Ac LY 99 -0 -0 5. D 06 RF ti ET 10 3- 8- 00 CA 27 LE ve HY 45 20 20 0 RE 8 ET LE 75 10 10 R NE 8 PH AR HE GL MA NR YC CY Y OL LL 33 C 50 PO WD MA 00 11 12 3 30 5 ME 50 NO Ac PA 90 -2 -0 .0 D 60 RF ti P 41 3- 1- 00 CA 61 LE ve 32 98 20 20 RE 5 ET 5 26 10 10 R MG 1 PH AR HE TA NAVEEN NR BL CY Y ET LL C DI 62 08 11 3 60 30 ME 48 NO Ac VA 75 -2 -2 .0 D 19 RF ti LP 60 5- 4- 00 CA 75 LE ve RO 79 20 20 RE 9 ET EX 81 10 10 R 3 PH SO AR HE D MA NR DR CY Y 50 LL 0 C MG TA B MA 00 11 11 3 30 5 ME 50 NO Ac PA 90 -2 -2 .0 D 60 RF ti P 41 3- 3- 00 CA 61 LE ve 32 98 20 20 RE 5 ET 5 26 10 10 R MG 1 PH AR HE STEVE HODGE NR BL CY Y ET LL C PO 51 11 11 3 25 15 ME 50 NO Ac LY 99 -0 -1 5. D 06 RF ti ET 10 3- 9- 00 CA 27 LE ve HY 45 20 20 0 RE 8 ET LE 75 10 10 R NE 8 PH AR HE MARII HODGE NR YC CY Y OL LL 33 C 50 PO WD MA 00 08 11 3 30 5 ME 47 NO Ac PA 90 -0 -1 .0 D 70 RF ti P 41 6- 2- 00 CA 61 LE ve 32 98 20 20 RE 6 ET 5 26 10 10 R MG 1 PH AR HE STEVE HODGE NR BL CY Y ET LL C 00 09 11 3 30 30 ME 48 NO Ac 00 -1 -1 .0 D 62 RF ti 24 0- 0- 00 CA 88 LE ve 42 20 20 RE 8 ET 03 10 10 R 3 PH AR HE MA NR CY Y LL C DE 68 11 11 3 18 3 ME 50 NO Ac OM 38 -0 -0 .0 D 15 RF ti ET 20 6- 6- 00 CA 95 LE ve PACK 04 20 20 RE 1 ET ZI 11 10 10 R NE 0 PH AR HE 25 MA NR CY Y MG LL TA C BL ET MA 00 08 11 3 30 5 ME 47 NO Ac PA 90 -0 -0 .0 D 70 RF ti P 41 6- 3- 00 CA 61 LE ve 32 98 20 20 RE 6 ET 5 26 10 10 R MG 1 PH AR HE TA NAVEEN NR BL CY Y ET LL C PO 51 11 11 3 25 15 ME 50 NO Ac LY 99 -0 -0 5. D 06 RF ti ET 10 3- 3- 00 CA 27 LE ve HY 45 20 20 0 RE 8 ET LE 75 10 10 R NE 8 PH AR HE GL MA NR YC CY Y OL LL 33 C 50 PO WD DI 62 08 10 3 30 30 ME 47 NO Ac VA 75 -0 -2 .0 D 57 RF ti LP 60 2- 7- 00 CA 10 LE ve RO 79 20 20 RE 9 ET EX 71 10 10 R 3 PH SO AR HE D MA NR DR CY Y 25 LL 0 C MG TA B DI 62 08 10 3 60 30 ME 48 NO Ac VA 75 -2 -2 .0 D 19 RF ti LP 60 5- 5- 00 CA 75 LE ve RO 79 20 20 RE 9 ET EX 81 10 10 R 3 PH SO AR HE D MA NR DR CY Y 50 LL 0 C MG TA B 00 09 10 3 30 30 ME 48 NO Ac 00 -1 -1 .0 D 62 RF ti 24 0- 1- 00 CA 88 LE ve 42 20 20 RE 8 ET 03 10 10 R 3 PH AR HE MA NR CY Y LL C DI 62 08 10 3 30 30 ME 47 NO Ac VA 75 -0 -0 .0 D 57 RF ti LP 60 2- 1- 00 CA 10 LE ve RO 79 20 20 RE 9 ET EX 71 10 10 R 3 PH SO AR HE D MA NR DR CY Y 25 LL 0 C MG TA B MA 00 08 10 3 30 5 ME 47 NO Ac PA 90 -0 -0 .0 D 70 RF ti P 41 6- 1- 00 CA 61 LE ve 32 98 20 20 RE 6 ET 5 26 10 10 R MG 1 PH AR HE TA MA NR BL CY Y ET LL C DI 62 08 09 3 60 30 ME 48 NO Ac VA 75 -2 -2 .0 D 19 RF ti LP 60 5- 4- 00 CA 75 LE ve RO 79 20 20 RE 9 ET EX 81 10 10 R 3 PH SO AR HE D MA NR DR CY Y 50 LL 0 C MG TA B 00 09 09 3 30 30 ME 48 NO Ac 00 -1 -1 .0 D 62 RF ti 24 0- 0- 00 CA 88 LE ve 42 20 20 RE 8 ET 03 10 10 R 3 PH AR HE MA NR CY Y LL C DI 62 08 08 3 30 30 ME 47 NO Ac VA 75 -0 -3 .0 D 57 RF ti LP 60 2- 1- 00 CA 10 LE ve RO 79 20 20 RE 9 ET EX 71 10 10 R 3 PH SO AR HE D MA NR DR CY Y 25 LL 0 C MG TA B DI 62 08 08 3 60 30 ME 48 NO Ac VA 75 -2 -2 .0 D 19 RF ti LP 60 5- 5- 00 CA 75 LE ve RO 79 20 20 RE 9 ET EX 81 10 10 R 3 PH SO AR HE D MA NR DR CY Y 50 LL 0 C MG TA B DO 00 07 08 3 60 30 ME 47 NO Ac K 90 -2 -2 .0 D 33 RF ti 10 42 3- 3- 00 CA 71 LE ve 0 24 20 20 RE 2 ET MG 46 10 10 R 1 PH CA AR HE PS MA NR UL CY Y E LL C 00 08 08 3 42 7 ME 47 NO Ac 12 -1 -1 0. D 94 RF ti 10 6- 6- 00 CA 26 LE ve 63 20 20 0 RE 1 ET 81 10 10 R 6 PH AR HE MA NR CY Y LL C 00 03 08 3 30 30 ME 43 NO Ac 00 -1 -1 .0 D 79 RF ti 24 2- 1- 00 CA 65 LE ve 42 20 20 RE 1 ET 03 10 10 R 3 PH AR HE MA NR CY Y LL C MA 00 08 08 3 30 5 ME 47 NO Ac PA 90 -0 -0 .0 D 70 RF ti P 41 6- 6- 00 CA 61 LE ve 32 98 20 20 RE 6 ET 5 26 10 10 R MG 1 PH AR HE TA MA NR BL CY Y ET LL C DI 62 08 08 3 30 30 ME 47 NO Ac VA 75 -0 -0 .0 D 57 RF ti LP 60 2- 2- 00 CA 10 LE ve RO 79 20 20 RE 9 ET EX 71 10 10 R 3 PH SO AR HE D MA NR DR CY Y 25 LL 0 C MG TA B DI 62 03 07 3 60 30 ME 43 NO Ac VA 75 -0 -2 .0 D 47 RF ti LP 60 1- 6- 00 CA 77 LE ve RO 79 20 20 RE 1 ET EX 81 10 10 R 3 PH SO AR HE D MA NR DR CY Y 50 LL 0 C MG TA B DO 00 07 07 3 60 30 ME 47 NO Ac K 90 -2 -2 .0 D 33 RF ti 10 42 3- 3- 00 CA 71 LE ve 0 24 20 20 RE 2 ET MG 46 10 10 R 1 PH CA AR HE PS MA NR UL CY Y E LL C 00 03 07 3 30 30 ME 43 NO Ac 00 -1 -1 .0 D 79 RF ti 24 2- 2- 00 CA 65 LE ve 42 20 20 RE 1 ET 03 10 10 R 3 PH AR HE MA NR CY Y LL C DI 62 02 07 3 30 30 ME 42 NO Ac VA 75 -0 -0 .0 D 91 RF ti LP 60 8- 5- 00 CA 83 LE ve RO 79 20 20 RE 8 ET EX 71 10 10 R 3 PH SO AR HE D MA NR DR CY Y 25 LL 0 C MG TA B DI 62 03 06 3 60 30 ME 43 NO Ac VA 75 -0 -2 .0 D 47 RF ti LP 60 1- 8- 00 CA 77 LE ve RO 79 20 20 RE 1 ET EX 81 10 10 R 3 PH SO AR HE D MA NR DR CY Y 50 LL 0 C MG TA B DO 00 03 06 3 60 30 ME 44 NO Ac K 90 -2 -2 .0 D 15 RF ti 10 42 6- 3- 00 CA 82 LE ve 0 24 20 20 RE 2 ET MG 46 10 10 R 1 PH CA AR HE PS MA NR UL CY Y E LL C 00 03 06 3 30 30 ME 43 NO Ac 00 -1 -1 .0 D 79 RF ti 24 2- 1- 00 CA 65 LE ve 42 20 20 RE 1 ET 03 10 10 R 3 PH AR HE MA NR CY Y LL C DI 62 02 06 3 30 30 ME 42 NO Ac VA 75 -0 -0 .0 D 91 RF ti LP 60 8- 4- 00 CA 83 LE ve RO 79 20 20 RE 8 ET EX 71 10 10 R 3 PH SO AR HE D MA NR DR CY Y 25 LL 0 C MG TA B DI 62 03 05 3 60 30 ME 43 NO Ac VA 75 -0 -2 .0 D 47 RF ti LP 60 1- 8- 00 CA 77 LE ve RO 79 20 20 RE 1 ET EX 81 10 10 R 3 PH SO AR HE D MA NR DR CY Y 50 LL 0 C MG TA B DO 00 03 05 3 60 30 ME 44 NO Ac K 90 -2 -2 .0 D 15 RF ti 10 42 6- 4- 00 CA 82 LE ve 0 24 20 20 RE 2 ET MG 46 10 10 R 1 PH CA AR HE PS MA NR UL CY Y E LL C 00 03 05 3 30 30 ME 43 NO Ac 00 -1 -1 .0 D 79 RF ti 24 2- 2- 00 CA 65 LE ve 42 20 20 RE 1 ET 03 10 10 R 3 PH AR HE MA NR CY Y LL C DI 62 02 05 3 30 30 ME 42 NO Ac VA 75 -0 -0 .0 D 91 RF ti LP 60 8- 7- 00 CA 83 LE ve RO 79 20 20 RE 8 ET EX 71 10 10 R 3 PH SO AR HE D MA NR DR CY Y 25 LL 0 C MG TA B DI 62 03 04 3 60 30 ME 43 NO Ac VA 75 -0 -2 .0 D 47 RF ti LP 60 1- 8- 00 CA 77 LE ve RO 79 20 20 RE 1 ET EX 81 10 10 R 3 PH SO AR HE D MA NR DR CY Y 50 LL 0 C MG TA B DO 00 03 04 3 60 30 ME 44 NO Ac K 90 -2 -2 .0 D 15 RF ti 10 42 6- 6- 00 CA 82 LE ve 0 24 20 20 RE 2 ET MG 46 10 10 R 1 PH CA AR HE PS MA NR UL CY Y E LL C 00 02 04 3 30 5 ME 42 NO Ac 18 -0 -2 .0 D 80 RF ti 28 3- 3- 00 CA 54 LE ve 44 20 20 RE 8 ET 78 10 10 R 9 PH AR HE MA NR CY Y LL C 00 03 04 3 30 30 ME 43 NO Ac 00 -1 -1 .0 D 79 RF ti 24 2- 4- 00 CA 65 LE ve 42 20 20 RE 1 ET 03 10 10 R 3 PH AR HE MA NR CY Y LL C DI 62 02 04 3 30 30 ME 42 NO Ac VA 75 -0 -0 .0 D 91 RF ti LP 60 8- 9- 00 CA 83 LE ve RO 79 20 20 RE 8 ET EX 71 10 10 R 3 PH SO AR HE D MA NR DR CY Y 25 LL 0 C MG TA B DI 62 03 03 3 60 30 ME 43 NO Ac VA 75 -0 -2 .0 D 47 RF ti LP 60 1- 9- 00 CA 77 LE ve RO 79 20 20 RE 1 ET EX 81 10 10 R 3 PH SO AR HE D MA NR DR CY Y 50 LL 0 C MG TA B DO 00 03 03 3 60 30 ME 44 NO Ac K 90 -2 -2 .0 D 15 RF ti 10 42 6- 6- 00 CA 82 LE ve 0 24 20 20 RE 2 ET MG 46 10 10 R 1 PH CA AR HE PS MA NR UL CY Y E LL C 00 03 03 3 30 30 ME 43 NO Ac 00 -1 -1 .0 D 79 RF ti 24 2- 2- 00 CA 65 LE ve 42 20 20 RE 1 ET 03 10 10 R 3 PH AR HE MA NR CY Y LL C DI 62 02 03 3 30 30 ME 42 NO Ac VA 75 -0 -0 .0 D 91 RF ti LP 60 8- 8- 00 CA 83 LE ve RO 79 20 20 RE 8 ET EX 71 10 10 R 3 PH SO AR HE D MA NR DR CY Y 25 LL 0 C MG TA B DI 62 03 03 3 60 30 ME 43 NO Ac VA 75 -0 -0 .0 D 47 RF ti LP 60 1- 1- 00 CA 77 LE ve RO 79 20 20 RE 1 ET EX 81 10 10 R 3 PH SO AR HE D MA NR DR CY Y 50 LL 0 C MG TA B DI 62 02 02 00 30 30 ME 42 NO Ac VA 75 -0 -2 .0 D 91 RF ti LP 60 8- 6- 00 CA 83 LE ve RO 79 20 20 RE 8 ET EX 71 10 10 R 3 PH SO AR HE D MA NR DR CY Y 25 LL 0 C MG TA B 00 09 02 05 30 30 ME 39 NO Ac 00 -1 -2 .0 D 15 RF ti 24 6- 6- 00 CA 03 LE ve 42 20 20 RE 9 ET 03 09 10 R 3 PH AR HE MA NR CY Y LL C 00 02 02 00 21 7 ME 42 NO Ac 12 -0 -1 0. D 80 RF ti 10 3- 1- 00 CA 54 LE ve 63 20 20 0 RE 7 ET 81 10 10 R 6 PH AR HE MA NR CY Y LL C DO 00 11 02 02 60 30 ME 40 NO Ac K 90 -2 -1 .0 D 99 RF ti 10 42 7- 1- 00 CA 00 LE ve 0 24 20 20 RE 6 ET MG 46 09 10 R 1 PH CA AR HE PS MA NR UL CY Y E LL C 00 02 02 00 30 5 ME 42 NO Ac 18 -0 -1 .0 D 80 RF ti 28 3- 1- 00 CA 54 LE ve 44 20 20 RE 8 ET 78 10 10 R 9 PH AR HE MA NR CY Y LL C DI 62 08 02 05 60 30 ME 38 NO Ac VA 75 -3 -1 .0 D 72 RF ti LP 60 1- 1- 00 CA 99 LE ve RO 79 20 20 RE 2 ET EX 81 09 10 R 3 PH SO AR HE D MA NR DR CY Y 50 LL 0 C MG TA B 00 09 01 04 30 30 ME 39 NO Ac 00 -1 -2 .0 D 15 RF ti 24 6- 8- 00 CA 03 LE ve 42 20 20 RE 9 ET 03 09 10 R 3 PH AR HE MA NR CY Y LL C DI 62 08 01 04 60 30 ME 38 NO Ac VA 75 -3 -1 .0 D 72 RF ti LP 60 1- 4- 00 CA 99 LE ve RO 79 20 20 RE 2 ET EX 81 09 10 R 3 PH SO AR HE D MA NR DR CY Y 50 LL 0 C MG TA B DO 00 11 01 01 60 30 ME 40 NO Ac K 90 -2 -1 .0 D 99 RF ti 10 42 7- 4- 00 CA 00 LE ve 0 24 20 20 RE 6 ET MG 46 09 10 R 1 PH CA AR HE PS MA NR UL CY Y E LL C 00 09 12 03 30 30 ME 39 NO Ac 00 -1 -3 .0 D 15 RF ti 24 6- 1- 00 CA 03 LE ve 42 20 20 RE 9 ET 03 09 09 R 3 PH AR HE MA NR CY Y LL C DI 62 08 12 03 60 30 ME 38 NO Ac VA 75 -3 -1 .0 D 72 RF ti LP 60 1- 7- 00 CA 99 LE ve RO 79 20 20 RE 2 ET EX 81 09 09 R 3 PH SO AR HE D MA NR DR CY Y 50 LL 0 C MG TA B DE 68 12 12 00 20 3 ME 41 NO Ac OM 38 -1 -1 .0 D 33 RF ti ET 20 0- 7- 00 CA 99 LE ve PACK 04 20 20 RE 2 ET ZI 11 09 09 R NE 0 PH AR HE 25 MA NR CY Y MG LL TA C BL ET DO 00 11 12 00 60 30 ME 40 NO Ac K 90 -2 -0 .0 D 99 RF ti 10 42 7- 3- 00 CA 00 LE ve 0 24 20 20 RE 6 ET MG 46 09 09 R 1 PH CA AR HE PS MA NR UL CY Y E LL C 00 09 12 02 30 30 ME 39 NO Ac 00 -1 -0 .0 D 15 RF ti 24 6- 3- 00 CA 03 LE ve 42 20 20 RE 9 ET 03 09 09 R 3 PH AR HE MA NR CY Y LL C DI 62 08 11 03 30 30 ME 38 NO Ac VA 75 -1 -1 .0 D 32 RF ti LP 60 4- 9- 00 CA 42 LE ve RO 79 20 20 RE 0 ET EX 71 09 09 R 3 PH SO AR HE D NAVEEN NR DR CY Y 25 LL 0 C MG TA B DI 62 08 11 02 60 30 ME 38 NO Ac VA 75 -3 -0 .0 D 72 RF ti LP 60 1- 5- 00 CA 99 LE ve RO 79 20 20 RE 2 ET EX 81 09 09 R 3 PH SO AR HE D NAVEEN NR DR CY Y 50 LL 0 C MG TA B DO 00 10 11 00 60 30 ME 40 NO Ac K 90 -2 -0 .0 D 15 RF ti 10 42 6- 5- 00 CA 32 LE ve 0 24 20 20 RE 3 ET MG 46 09 09 R 1 PH CA AR HE PS MA NR UL CY Y E LL C DI 62 08 10 02 30 30 ME 38 NO Ac VA 75 -1 -2 .0 D 32 RF ti LP 60 4- 2- 00 CA 42 LE ve RO 79 20 20 RE 0 ET EX 71 09 09 R 3 PH SO AR HE D NAVEEN NR DR CY Y 25 LL 0 C MG TA B 00 09 10 01 30 30 ME 39 NO Ac 00 -1 -2 .0 D 15 RF ti 24 6- 2- 00 CA 03 LE ve 42 20 20 RE 9 ET 03 09 09 R 3 PH AR HE NAVEEN NR CY Y LL C DO 00 09 10 00 60 30 ME 39 NO Ac K 90 -2 -0 .0 D 44 RF ti 10 42 8- 8- 00 CA 13 LE ve 0 24 20 20 RE 0 ET MG 46 09 09 R 1 PH CA AR HE PS MA NR UL CY Y E LL C DI 62 08 10 01 60 30 ME 38 NO Ac VA 75 -3 -0 .0 D 72 RF ti LP 60 1- 8- 00 CA 99 LE ve RO 79 20 20 RE 2 ET EX 81 09 09 R 3 PH SO AR HE D NAVEEN NR DR CY Y 50 LL 0 C MG TA B 00 09 09 00 30 30 ME 39 NO Ac 00 -1 -2 .0 D 15 RF ti 24 6- 4- 00 CA 03 LE ve 42 20 20 RE 9 ET 03 09 09 R 3 PH AR HE NAVEEN NR CY Y LL C DI 62 08 09 01 30 30 ME 38 NO Ac VA 75 -1 -2 .0 D 32 RF ti LP 60 4- 4- 00 CA 42 LE ve RO 79 20 20 RE 0 ET EX 71 09 09 R 3 PH SO AR HE D MA NR DR CY Y 25 LL 0 C MG TA B DO 00 08 09 00 60 30 ME 38 NO Ac K 90 -2 -1 .0 D 68 RF ti 10 42 8- 0- 00 CA 96 LE ve 0 24 20 20 RE 0 ET MG 46 09 09 R 1 PH CA AR HE PS MA NR UL CY Y E LL C DI 62 08 09 00 60 30 ME 38 NO Ac VA 75 -3 -1 .0 D 72 RF ti LP 60 1- 0- 00 CA 99 LE ve RO 79 20 20 RE 2 ET EX 81 09 09 R 3 PH SO AR HE D MA NR DR CY Y 50 LL 0 C MG TA B DI 62 08 08 00 30 30 ME 38 NO Ac VA 75 -1 -2 .0 D 32 RF ti LP 60 4- 7- 00 CA 42 LE ve RO 79 20 20 RE 0 ET EX 71 09 09 R 3 PH SO AR HE D MA NR DR CY Y 25 LL 0 C MG TA B DO 00 07 08 00 60 30 ME 37 NO Ac K 90 -3 -2 .0 D 94 RF ti 10 42 1- 7- 00 CA 78 LE ve 0 24 20 20 RE 7 ET MG 46 09 09 R 1 PH CA AR HE PS MA NR UL CY Y E LL C 00 03 08 05 30 30 ME 34 NO Ac 00 -1 -2 .0 D 70 RF ti 24 8- 7- 00 CA 49 LE ve 42 20 20 RE 3 ET 03 09 09 R 3 PH AR HE MA NR CY Y LL C DI 62 03 08 05 60 30 ME 34 NO Ac VA 75 -0 -1 .0 D 26 RF ti LP 60 2- 3- 00 CA 34 LE ve RO 79 20 20 RE 9 ET EX 81 09 09 R 3 PH SO AR HE D MA NR DR CY Y 50 LL 0 C MG TA B 00 03 07 04 30 30 ME 34 NO Ac 00 -1 -3 .0 D 70 RF ti 24 8- 0- 00 CA 49 LE ve 42 20 20 RE 3 ET 03 09 09 R 3 PH AR HE MA NR CY Y LL C DO 62 06 07 01 60 30 ME 36 NO Ac CU 58 -0 -3 .0 D 46 RF ti SA 40 1- 0- 00 CA 42 LE ve TE 68 20 20 RE 4 ET 30 09 09 R SO 1 PH DI AR HE UM MA NR CY Y 10 0 LL MG C SO FT GE L DI 62 02 07 05 30 30 ME 34 NO Ac VA 75 -2 -3 .0 D 06 RF ti LP 60 3- 0- 00 CA 73 LE ve RO 79 20 20 RE 1 ET EX 71 09 09 R 3 PH SO AR HE D MA NR DR CY Y 25 LL 0 C MG TA B DO 62 06 07 00 60 30 ME 36 NO Ac CU 58 -0 -1 .0 D 46 RF ti SA 40 1- 6- 00 CA 42 LE ve TE 68 20 20 RE 4 ET 30 09 09 R SO 1 PH DI AR HE UM MA NR CY Y 10 0 LL MG C SO FT GE L DI 62 03 07 04 60 30 ME 34 NO Ac VA 75 -0 -1 .0 D 26 RF ti LP 60 2- 6- 00 CA 34 LE ve RO 79 20 20 RE 9 ET EX 81 09 09 R 3 PH SO AR HE D MA NR DR CY Y 50 LL 0 C MG TA B DI 62 02 07 04 30 30 ME 34 NO Ac VA 75 -2 -0 .0 D 06 RF ti LP 60 3- 2- 00 CA 73 LE ve RO 79 20 20 RE 1 ET EX 71 09 09 R 3 PH SO AR HE D MA NR DR CY Y 25 LL 0 C MG TA B 00 04 07 02 5. 5 ME 35 NO Ac 90 -0 -0 00 D 23 RF ti 41 9- 2- 0 CA 84 LE ve 05 20 20 RE 9 ET 56 09 09 R 1 PH AR HE MA NR CY Y LL C 00 04 06 02 30 30 ME 35 NO Ac 90 -0 -1 .0 D 23 RF ti 41 9- 8- 00 CA 84 LE ve 05 20 20 RE 9 ET 56 09 09 R 1 PH AR HE MA NR CY Y LL C DI 62 03 06 03 60 30 ME 34 NO Ac VA 75 -0 -1 .0 D 26 RF ti LP 60 2- 8- 00 CA 34 LE ve RO 79 20 20 RE 9 ET EX 81 09 09 R 3 PH SO AR HE D MA NR DR CY Y 50 LL 0 C MG TA B 00 03 06 03 30 30 ME 34 NO Ac 00 -1 -1 .0 D 70 RF ti 24 8- 8- 00 CA 49 LE ve 42 20 20 RE 3 ET 03 09 09 R 3 PH AR HE MA NR CY Y LL C DI 62 02 06 03 30 30 ME 34 NO Ac VA 75 -2 -0 .0 D 06 RF ti LP 60 3- 4- 00 CA 73 LE ve RO 79 20 20 RE 1 ET EX 71 09 09 R 3 PH SO AR HE D MA NR DR CY Y 25 LL 0 C MG TA B 00 03 06 02 30 30 ME 34 NO Ac 00 -1 -0 .0 D 70 RF ti 24 8- 4- 00 CA 49 LE ve 42 20 20 RE 3 ET 03 09 09 R 3 PH AR HE NAVEEN NR CY Y LL C 00 04 05 01 30 30 ME 35 NO Ac 90 -0 -2 .0 D 23 RF ti 41 9- 1- 00 CA 84 LE ve 05 20 20 RE 9 ET 56 09 09 R 1 PH AR HE NAVEEN NR CY Y LL C DO 62 03 05 02 60 30 ME 34 NO Ac CU 58 -0 -2 .0 D 34 RF ti SA 40 4- 1- 00 CA 30 LE ve TE 68 20 20 RE 0 ET 30 09 09 R SO 1 PH DI AR HE UM MA NR CY Y 10 0 LL MG C SO FT GE L DI 62 03 05 02 60 30 ME 34 NO Ac VA 75 -0 -0 .0 D 26 RF ti LP 60 2- 7- 00 CA 34 LE ve RO 79 20 20 RE 9 ET EX 81 09 09 R 3 PH SO AR HE D NAVEEN NR DR CY Y 50 LL 0 C MG TA B 00 03 04 01 30 30 ME 34 NO Ac 00 -1 -2 .0 D 70 RF ti 24 8- 3- 00 CA 49 LE ve 42 20 20 RE 3 ET 03 09 09 R 3 PH AR HE NAVEEN NR CY Y LL C DO 62 03 04 01 60 30 ME 34 NO Ac CU 58 -0 -2 .0 D 34 RF ti SA 40 4- 3- 00 CA 30 LE ve TE 68 20 20 RE 0 ET 30 09 09 R SO 1 PH DI AR HE UM MA NR CY Y 10 0 LL MG C SO FT GE L 00 04 04 00 30 30 ME 35 NO Ac 90 -0 -2 .0 D 23 RF ti 41 9- 3- 00 CA 84 LE ve 05 20 20 RE 9 ET 56 09 09 R 1 PH AR HE MA NR CY Y LL C DI 62 03 04 01 60 30 ME 34 NO Ac VA 75 -0 -0 .0 D 26 RF ti LP 60 2- 9- 00 CA 34 LE ve RO 79 20 20 RE 9 ET EX 81 09 09 R 3 PH SO AR HE D MA NR DR CY Y 50 LL 0 C MG TA B 50 02 04 01 30 30 ME 34 NO Ac 11 -2 -0 .0 D 06 RF ti 10 3- 9- 00 CA 73 LE ve 39 20 20 RE 4 ET 40 09 09 R 1 PH AR HE MA NR CY Y LL C DO 62 03 03 00 60 30 ME 34 NO Ac CU 58 -0 -2 .0 D 34 RF ti SA 40 4- 6- 00 CA 30 LE ve TE 68 20 20 RE 0 ET 30 09 09 R SO 1 PH DI AR HE UM MA NR CY Y 10 0 LL MG C SO FT GE L 00 03 03 00 30 30 ME 34 NO Ac 00 -1 -2 .0 D 70 RF ti 24 8- 6- 00 CA 49 LE ve 42 20 20 RE 3 ET 03 09 09 R 3 PH AR HE MA NR CY Y LL C 50 02 03 00 30 30 ME 34 NO Ac 11 -2 -1 .0 D 06 RF ti 10 3- 2- 00 CA 73 LE ve 39 20 20 RE 4 ET 40 09 09 R 1 PH AR HE MA NR CY Y LL C DI 62 03 03 00 60 30 ME 34 NO Ac VA 75 -0 -1 .0 D 26 RF ti LP 60 2- 2- 00 CA 34 LE ve RO 79 20 20 RE 9 ET EX 81 09 09 R 3 PH SO AR HE D MA NR DR CY Y 50 LL 0 C MG TA B 00 09 02 05 30 30 ME 30 NO Ac 00 -2 -2 .0 D 04 RF ti 24 4- 6- 00 CA 27 LE ve 42 20 20 RE 2 ET 03 08 09 R 3 PH AR HE MA NR CY Y LL C DI 62 09 02 05 60 30 ME 30 NO Ac VA 75 -0 -1 .0 D 04 RF ti LP 60 4- 2- 00 CA 26 LE ve RO 79 20 20 RE 5 ET EX 81 08 09 R 3 PH SO AR HE D MA NR DR CY Y 50 LL 0 C MG TA B DO 62 12 02 02 60 30 ME 32 NO Ac CU 58 -0 -1 .0 D 01 RF ti SA 40 1- 2- 00 CA 50 LE ve TE 68 20 20 RE 5 ET 30 08 09 R SO 1 PH DI AR HE UM MA NR CY Y 10 0 LL MG C SO FT GE L DI 62 09 01 05 30 30 ME 30 NO Ac VA 75 -0 -3 .0 D 04 RF ti LP 60 4- 0- 00 CA 26 LE ve RO 79 20 20 RE 8 ET EX 71 08 09 R 3 PH SO AR HE D MA NR DR CY Y 25 LL 0 C MG TA B 50 09 01 05 30 30 ME 30 NO Ac 11 -0 -3 .0 D 04 RF ti 10 4- 0- 00 CA 27 LE ve 39 20 20 RE 3 ET 40 08 09 R 1 PH AR HE MA NR CY Y LL C 00 09 01 04 30 30 ME 30 NO Ac 00 -2 -3 .0 D 04 RF ti 24 4- 0- 00 CA 27 LE ve 42 20 20 RE 2 ET 03 08 09 R 3 PH AR HE MA NR CY Y LL C DO 62 12 01 01 60 30 ME 32 NO Ac CU 58 -0 -1 .0 D 01 RF ti SA 40 1- 5- 00 CA 50 LE ve TE 68 20 20 RE 5 ET 30 08 09 R SO 1 PH DI AR HE UM MA NR CY Y 10 0 LL MG C SO FT GE L DI 62 09 01 04 60 30 ME 30 NO Ac VA 75 -0 -1 .0 D 04 RF ti LP 60 4- 5- 00 CA 26 LE ve RO 79 20 20 RE 5 ET EX 81 08 09 R 3 PH SO AR HE D MA NR DR CY Y 50 LL 0 C MG TA B 00 09 01 03 30 30 ME 30 NO Ac 00 -2 -0 .0 D 04 RF ti 24 4- 1- 00 CA 27 LE ve 42 20 20 RE 2 ET 03 08 09 R 3 PH AR HE MA NR CY Y LL C 50 09 01 04 30 30 ME 30 NO Ac 11 -0 -0 .0 D 04 RF ti 10 4- 1- 00 CA 27 LE ve 39 20 20 RE 3 ET 40 08 09 R 1 PH AR HE MA NR CY Y LL C DI 62 09 01 04 30 30 ME 30 NO Ac VA 75 -0 -0 .0 D 04 RF ti LP 60 4- 1- 00 CA 26 LE ve RO 79 20 20 RE 8 ET EX 71 08 09 R 3 PH SO AR HE D MA NR DR CY Y 25 LL 0 C MG TA B DI 62 09 12 03 60 30 ME 30 NO Ac VA 75 -0 -1 .0 D 04 RF ti LP 60 4- 8- 00 CA 26 LE ve RO 79 20 20 RE 5 ET EX 81 08 08 R 3 PH SO AR HE D MA NR DR CY Y 50 LL 0 C MG TA B DO 62 12 12 00 60 30 ME 32 NO Ac CU 58 -0 -1 .0 D 01 RF ti SA 40 1- 8 00 CA 50 LE ve TE 68 20 20 RE 5 ET 30 08 08 R SO 1 PH DI AR HE UM MA NR CY Y 10 0 LL MG C SO FT GE L DI 62 09 12 03 30 30 ME 30 NO Ac VA 75 -0 -0 .0 D 04 RF ti LP 60 4- 4- 00 CA 26 LE ve RO 79 20 20 RE 8 ET EX 71 08 08 R 3 PH SO AR HE D MA NR DR CY Y 25 LL 0 C MG TA B 50 09 12 03 30 30 ME 30 NO Ac 11 -0 -0 .0 D 04 RF ti 10 4- 4- CA 27 LE ve 39 20 20 RE 3 ET 40 08 08 R 1 PH AR HE MA NR CY Y LL C 00 09 12 02 30 30 ME 30 NO Ac 00 -2 -0 .0 D 04 RF ti 24 4 4- 00 CA 27 LE ve 42 20 20 RE 2 ET 03 08 08 R 3 PH AR HE MA NR CY Y LL C DO 00 09 11 02 60 30 ME 30 NO Ac K 90 -0 -0 .0 D 04 RF ti 10 42 4- 7- 00 CA 26 LE ve 0 24 20 20 RE 3 ET MG 46 08 08 R 1 PH CA AR HE PS MA NR UL CY Y E LL C 00 09 11 01 30 30 ME 30 NO Ac 00 -2 -0 .0 D 04 RF ti 24 4- 7- 00 CA 27 LE ve 42 20 20 RE 2 ET 03 08 08 R 3 PH AR HE MA NR CY Y LL C 50 09 11 02 30 30 ME 30 NO Ac 11 -0 -0 .0 D 04 RF ti 10 4- 7- 00 CA 27 LE ve 39 20 20 RE 3 ET 40 08 08 R 1 PH AR HE MA NR CY Y LL C DI 62 09 11 02 60 30 ME 30 NO Ac VA 75 -0 -0 .0 D 04 RF ti LP 60 4- 7- 00 CA 26 LE ve RO 79 20 20 RE 5 ET EX 81 08 08 R 3 PH SO AR HE D MA NR DR CY Y 50 LL 0 C MG TA B 00 09 10 00 30 30 ME 30 NO Ac 00 -2 -0 .0 D 04 RF ti 24 4- 9- 00 CA 27 LE ve 42 20 20 RE 2 ET 03 08 08 R 3 PH AR HE MA NR CY Y LL C 50 09 10 00 30 30 ME 30 NO Ac 11 -0 -0 .0 D 04 RF ti 10 4 9- 00 CA 27 LE ve 39 20 20 RE 3 ET 40 08 08 R 1 PH AR HE MA NR CY Y LL C 50 09 10 01 30 30 ME 30 NO Ac 11 -0 -0 .0 D 04 RF ti 10 9 CA 27 LE ve 39 20 20 RE 3 ET 40 08 08 R 1 PH AR HE MA NR CY Y LL C DI 62 09 10 01 60 30 ME 30 NO Ac VA 75 -0 -0 .0 D 04 RF ti LP 60 4- 9- 00 CA 26 LE ve RO 79 20 20 RE 5 ET EX 81 08 08 R 3 PH SO AR HE D MA NR DR CY Y 50 LL 0 C MG TA B DO 00 09 10 01 60 30 ME 30 NO Ac K 90 -0 -0 .0 D 04 RF ti 10 42 9 00 CA 26 LE ve 0 24 20 20 RE 3 ET MG 46 08 08 R 1 PH CA AR HE PS MA NR UL CY Y E LL C DE 00 01 03 00 30 15 PA 36 No Ac PA 07 -0 -2 .0 UL 40 t ti KO 47 2- 4- 00 J 85 Av ve TE 12 20 20 ai 61 08 08 RU la ER 3 WE bl e 50 IN 0 C MG DB A TA RU BL WE ET FA MO L ZY 00 01 03 00 15 15 PA 36 No Ac DE 00 -0 -2 .0 UL 41 t ti EX 24 2- 4- 00 J 96 Av ve A 42 20 20 ai 20 03 08 08 RU la 0 WE bl MG e IN TA C BL DB ET A RU WE FA MO L Results Labs Lab Lab Date Result Refere Interp Status Commen Order Detail nces retati t Range on GLUCOMETER GLUCOSE (11-28-2012 17:34) GMD 96 60-100 complet Glucose 012 mg/dl ed 17:34 PROLACTIN (11-28-2012 17:30) Prolact 20.4 2.1-17. Above complet in 012 ng/mL 7 high ed 17:30 normal Comment: REFERENCE INTERVAL: Prolactin Comment: Access complete set of age- and/or gender-specific Comment: reference intervals for this test in the [facility] Comment: Test Directory ([email or web address]). Comment: Performed by [facility], Comment: [address], [facility] [place] [address] Comment: [email or web address], Kassidy Abreu MD - Lab. Director VALPROIC ACID (11-28-2012 17:30) Valproi 75.3 50.0-12 complet c Acid 012 ug/ml 0.0 ed 17:30 Comment: THERAPEUTIC COMPREHENSIVE METABOLIC PANEL (11-28-2012 17:30) ALT 23 U/L 21-72 complet 012 ed 17:30 AST 34 U/L 17-59 complet 012 ed 17:30 Alk. 53 U/L 38-126 complet Phos. 012 ed 17:30 Bili., 1.2 0.2-1.3 complet Total 012 mg/dl ed 17:30 Albumin 4.6 3.4-4.8 complet 012 gm/dl ed 17:30 Protein 8.0 6.3-8.6 complet ,Total 012 gm/dl ed 17:30 Calcium 9.6 8.4-10. complet , Total 012 mg/dl 2 ed 17:30 GFR 146 63-147 complet (AA) 012 mL/min/ ed 17:30 1.73 sq.M GFR 120 63-147 complet (non 012 mL/min/ ed AA) 17:30 1.73 sq.M Comment: Invalid if creatinine is changing or the patient is on dialysis. Use AA Comment: result if patient is -Gamb[place], non AA result otherwise. Creatin 0.7 0.7-1.3 complet ine 012 mg/dl ed 17:30 BUN 13 7-21 complet 012 mg/dl ed 17:30 Glucose 109 60-100 Above complet 012 mg/dl high ed 17:30 normal Anion 18.0 5.0-15. Above complet Gap 012 mmol/L 0 high ed 17:30 normal CO2 30 22-31 complet 012 mmol/L ed 17:30 Chlorid 12-29-2 87 95-110 Below complet e 012 mmol/L low ed 17:30 normal Potassi 3.5 3.5-5.1 complet um 012 mmol/L ed 17:30 Sodium 135 137-145 Below complet 012 mmol/L low ed 17:30 normal VALPROIC ACID (11-27-2012 03:00) Valproi 103.3 50.0-12 complet c Acid 012 ug/ml 0.0 ed 03:00 Comment: THERAPEUTIC Procedures Procedure DOS Code Location Performer Comment HEMOGLOBI 93590 COMBINED COMBINED N 7 PHYSICIAN PHYSICIAN GLYCOSYLA S LAB S LAB ABDI A1C CLOSED [address] 1 [facility] TEMPOROMA NDIBULAR DISLOCATI ON Encounters Encounter Start End Date Code Location Performer Type Date CRITICAL THE [address] [facility] - 2 2 [facility] - 2 2 [facility] - 1 1 [facility] T
--- OUTSIDE RECORDS SUMMARY | 2017-10-16 16:39 | External Medical Summary Rpt | CCD ---
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 Name Role Phone [facility] Unavailable Unavailable NCE SERV, [facility] N[facility] SERV [facility] Unavailable Unavailable [facility], [facility] [place], N[place]ON Unavailable Unavailable [facility] Unavailable Unavailable PHARMACY, [facility] MORGAN SEKOU, MORGAN Unavailable Unavailable SE[facility], Unavailable Unavailable [facility] Unavailable Unavailable [place], [facility] Unavailable Unavailable LAB, [facility] Unavailable [facility]available LAB, [facility] Unavailable Unavailable PHARMACY,, [facility] PHARM[facility], [facility] DE[facility] Unavailable Unavailable [facility] DE[facility] # [id number], Unavailable Unavailable [facility] # [id number] [facility] Unavailable Unavailable LLC, [facility] EMMICK ROS, EMMICK Unavailable Unavailable [facility] Unavailable Unavailable DI[facility]NOSTIC [facility], [facility] Unavailable Unavailable [facility]OCIATES[facility] Unavailable Unavailable TRANSPORTATION SER, [facility], [facility], HAPPY Unavailable Unavailable FEET [facility] Un[facility] Un[facility] INC, [facility]available Unavailable SERVICE, [facility] Unavailable Unavailable DEPT, [facility] COMF[facility], COMFORT Unavailable Unavailable [facility] TO Unavailable Unavailable [facility], [facility] Unavailable Unavailable [facility], [facility] Un[facility] Un[facility], [facility] Unavailable Unavailable [facility], [facility] Unavailable Unavailable H D, [facility] [facility] [place] [facility] Unavailable [facility]available [facility] Unavailable Unavailable IMAGING, [facility] Unavailable Unavailable LLC, [facility] Unavailable Unavailable [place], [facility] AMB Unavailable Un[facility] I Glenn STEWART, Unavailable Unavailable Glenn STEWART TAWNYA, ROSIO TAWNYA Unavailable Unavailable [facility] Unavailable Unavailable PHYSICIANS, LL, [facility] Unavailable Unavailable [facility], LISA [place] [facility] Unavailable Unavailable AM[facility]ANCE [facility], [facility], Unavailable Unavailable [facility] Unavailable Unavailable INCORPORAT, [facility] Unavailable Unavailable OF [facility], [facility], Unavailable Unavailable [facility] Un[facility] CARE, [facility] SCIFRES, SCIFRES Unavailable Unavailable [facility], [facility]available [facility] Unavailable Un[facility]ICIANS, [facility] Unavailable Unavailable CAVERN, [facility] [place], Unavailable Unavailable [facility] [place], Unavailable Unavailable DENTAL CLINIC [facility] # Unavailable Unavailable [id number], [facility] # [id number] [id number] # Unavailable Unavailable [id number], [id number] # [id number] [facility] Unavailable Unavailable [facility], [facility] Unavailable Unavailable [facility] Purpose Continuity of Care Document - 12-08-2007 through 2016 Problems Code Diagnosis DOS Provider Status R7301 IMPAIRED 09-18-2017 [facility] GLUCOSE LAB D50.8 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-04-2017 deficiency anemias B351 TINEA 08-28-2017 COM[facility]ORT UNGUIUM E1140 TYPE 2 DM 08-28-2017 [facility] WITH DIABETIC NEUROPATHY UNSPECIFIED W15297 PAIN IN 08-28-2017 COMFORT RIGHT TOES Z78167 PAIN IN 08-28-2017 COMFORT LEFT TOES R300 [...] ALTERED 07-01-2017 [facility] STATUS OF [facility] UNSPECIFIED R55 SYNCOPE AND 07-01-2017 [facility] COLLAPSE [facility] OF [facility] Z008 ENCOUNTER 07-01-2017 ST FOR OTHER [facility] EXAMINATION H5213 MYOPIA 05-02-2017 [facility] BILATERAL H524 PRESBYOPIA 05-02-2017 SCIFRES E119 TYPE 2 03-02-2017 [facility] WITHOUT COMPLICATIO NS D649 ANEMIA 12-12-2016 [facility] UNSPECIFIED PHYSICIANS [place] Z125 ENCOUNTER 12-12-2016 [facility] SCREENING [facility] MALIGNANT LA NEOPLASM PROSTATE R7989 OTHER SPEC 10-19-2016 [facility] ABNORMAL [facility]RBAN FINDINGS COG[facility]T BLOOD CHEMISTRY Z23 ENCOUNTER 09-03-2016 [facility] IMMUNIZATIO DEPT N J28388 OTHER LONG 08-15-2016 [facility] CURRENT DRUG THERAPY I25191 TYPE 2 05-04-2016 [facility] W/HYPOGLYCE FERNANDO W/O COMA R4781 SLURRED 05-04-2016 [facility] H5203 HYPERMETROP 04-24-2016 MORGAN SEKOU IA BILATERAL C85555 REGULAR 04-24-2016 MORGAN SEKOU ASTIGMATISM BILATERAL E039 HYPOTHYROID 09-29-2015 [facility] UNSPECIFIED N400 BENIGN 09-29-2015 [facility] HYPERPLASIA WO LW URIN TRACT SX Z5181 ENCOUNTER 09-29-2015 [facility] THERAPEUTIC DRUG LEVEL MONITORING 43457 DIAB W/O 06-12-2015 [facility] MENTION COMP TYPE II/UNS TYPE UNCNTRL V701 GENERAL 06-09-2015 [facility] EXAM[facility]ATION PHYSICIANS, REQUESTED LL AUTHORITY V5869 LONG-TERM 06-08-2015 [facility] (CURRENT) [facility] USE OF OTHER MEDICATIONS 22070 DIAB W/O 03-08-2015 [facility] COMP TYPE DIAGNOSTICS II/UNS NOT INCORPORAT STATED UNCNTRL 4011 ESSENTIAL 03-08-2015 [facility] HYPERTENSIO [facility] N, BENIGN INCORPORAT V7644 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-08-2015 [facility] MALIGNANT INCORPORAT NEOPLASM OF PROSTATE 84645 NUCLEAR 03-03-2015 [facility] SCLEROSIS 3670 HYPERMETROP 03-03-2015 OBED NAJERA IA 3674 PRESBYOPIA 03-03-2015 [facility] 85012 DIAB W/OTH 03-01-2015 ROSIO TAWNYA MANIFESTS TYPE II/UNS TYPE UNCNTRL 82527 DIARRHEA 03-01-2015 ROSIO TAWNYA 44307 UNSPECIFIED 09-29-2014 [facility] DUE TO VIRUSES 38490 HORDEOLUM 09-26-2014 [facility] 54163 DO LOC 08-17-2014 ROSIO TAWNYA HYPERPLASIA PROS W/O UR OBST & OTH LUTS 7241 PAIN IN 08-17-2014 [facility] DIAGNO[facility] SE 7242 LUMBAGO 08-17-2014 ROSIO TAWNYA 97565 UNSPECIFIED 03-02-2014 ROSIO TAWNYA URINARY INCONTINENC E 99892 POLYURIA 03-02-2014 ROSIO TAWNYA 35644 REGULAR 08-25-2013 [facility] ASTIGMATISM 03333 REFRACTIVE 08-25-2013 [facility] AMBLYOPIA 03108 08-25-2013 [facility] V6709 FOLLOW-UP 02-25-2013 DENTAL EXAMINATION CLINIC FOLLOWING OTHER SURGERY 8300 CLOSED 01-27-2013 [place] [facility] F[facility] 8301 OPEN 01-27-2013 DENTAL DISLOCATION CLINIC OF JAW V5409 OTH 01-27-2013 [place] [facility] INVOLVING FOUNDATIO INTERNAL FIXATION DEVICE E8497 PLACE OF 01-20-2013 DENTAL OCCURRENCE CLINIC RESIDENTIAL INSTITUTION E9178 STRIKE 01-20-2013 DENTAL AGNST/STRUC CLINIC K ACC OTH STATNRY OBJ W/FALL 39863 OTHER 11-28-2012 [facility] 7224 DEGENERATIO 11-27-2012 [facility] CERVICAL IMAGING INTERVERTEB RAL DISC 40307 DEGEN 11-27-2012 [facility] LUMBAR/LUMB RADIOLOGY OSACRAL IMAGING INTERVERTEB RAL DISC 7231 CERVICALGIA 11-27-2012 [facility] 7245 UNSPECIFIED 11-27-2012 [facility] BACKACHE [facility] IMAGING 9222 CONTUSION 11-27-2012 REG[facility]AL OF MED CTR ABDOMINAL WALL 9599 INJURY 11-27-2012 MEDICAL OTHER AND CENTER AMB UNSPECIFIED SERVICE I UNSPECIFIED SITE E8859 FALL FROM 11-27-2012 MEDICAL OTHER CENTER AMB SLIPPING SERVICE I TRIPPING OR STUMBLING V741 SCREENING 08-19-2012 [place] EXAMINATION [facility] FOR H D PULMONARY TUBERCULOSI S 5180 PULMONARY 07-11-2012 [place] [facility] 7220 DISPLCMT 07-11-2012 [place] [facility] C[facility] INTERVERT [facility] DISC WITHOUT MYELOPATHY 8020 NASAL 07-11-2012 [place] [facility] BON[facility], SERV CLOSED [facility]OUND[facility] FRACTURE 08342 INJURY OF 07-11-2012 [place] [facility] NECK OTHER FOUNDATIO AND UNSPECIFIED 79718 OTHER 07-11-2012 [place] [facility] INJURY OF SERV CHEST WALL FOUNDATIO E9889 INJURY 07-11-2012 [place] [facility] UNSPEC SERV MEANS UNDET FOUNDATIO ACC/PRPOSLY INFLICTED 68557 OTHER 04-05-2012 [facility] ALTERATION CO OF AMBULANCE CONSCIOUSNE TAXIN SS 7813 LACK OF 04-05-2012 [facility] COORDINATIO CO N AMBULANCE TAXIN 460 ACUTE 10-15-2011 [facility] ITIS 5269 UNSPECIFIED 10-12-2011 [facility] DISEASE OF CO THE [facility]WS AMBULANCE TAXIN 81952 OTHER 10-02-2011 [facility] DISORDERS V5489 OTHER 10-02-2011 [facility] 2724 OTHER AND 08-28-2011 COMBINED UNSPECIFIED PHYSICIANS LA HYPERLIPIDE FERNANDO 6019 UNSPECIFIED 08-28-2011 [facility] PHYSICIANS PROSTATITIS LA 318 OTHER 05-24-2011 JOURNEY TO SPECIFIED INDEPENDENT INTELLECTUA LIVIN L DISABILITIE S 2761 HYPOSMOLALI 05-03-2011 [facility] A 6[address]15 UNSPEC 05-03-2011 [facility] PRIMARY WITHOUT CARE RURAL MENTION INTRACT EPILEPSY 8951 TRAUMATIC 05-03-2011 [facility] AMBULA NCE COMPLICATED SERV 0091 COLITIS 11-09-2009 [facility] ENTERIT&GAS [facility]ATES TROENTERIT INF ORIGIN 295 SCHIZOPHREN 12-08-2007 [facility] [place] DISORDERS 298 OTHER 12-08-2007 [facility] [place] PSYCHOSES 7801 HALLUCINATI 12-08-2007 [facility] FIRE DEPT F25.9 Schizoaffec tive disorder, unspecified [...] 20 5- 0- 00 14 CA ve MO 00 20 20 99 RE AM 70 17 17 95 5 39 PH HB AR R MA 40 CY MG TA BL ET LI 16 09 10 30 30 00 ME Ac SI 72 -2 -2 .0 00 D ti NO 90 5- 0- 00 14 CA ve MO 37 20 20 99 RE IL 71 [...] 30 6- 0- 00 15 CA ve NV 31 20 20 01 RE DE 10 [...] 70 8- 2- 00 14 CA ve MO 35 20 20 85 RE IL 31 [...] 20 8- 2- 00 14 CA ve MO 00 20 20 85 RE AM 70 [...] 20 2- 4- 00 14 CA ve MO 00 20 20 56 RE AM 70 [...] 20 3- 7- 00 14 CA ve MO 00 20 20 37 RE AM 70 [...] ti LO 20 - 14 CA ve MO 00 20 20 19 RE AM 70 [...] 20 7- 2- 00 14 CA ve MO 00 20 20 06 RE AM 70 [...] 20 1- 4- 00 13 CA ve MO 00 20 20 91 RE AM 70 [...] OR 20 7- 4 13 CA ve NV 00 20 20 81 RE N 89 [...] 20 0- 7- 00 13 CA ve MO 00 20 20 77 RE AM 70 [...] 20 2- 3- 00 13 CA ve NV 00 20 20 52 RE N 89 [...] ti OR 20 4 13 CA ve NV 00 20 20 68 RE N 89 [...] 20 4- 7- 00 13 CA ve MO 00 20 20 64 RE AM 70 [...] 20 0- 7- 00 13 CA ve MO 00 20 20 52 RE AM 70 [...] 20 5- 7- 00 13 CA ve NV 00 20 20 40 RE N 89 [...] 20 7- 4- 00 CA 08 ve MO 05 20 20 RE 89 DE AM [...] G 69 20 20 RE 37 DE NV 61 15 15 LAUREN X 9 PH RA 70 AR H -3 MA A 0 CY FL EX LL PE C N GL SY RN GO W MO 00 04 06 0 20 14 ME [...] RA SA H FE FA A TY NV LY 28 G PH LA AR NC [...] RA CE AR H TA MA A NV CY NO PH LL EN C GL [...] 46 7- 7- 00 CA 08 ve MO 08 20 20 RE 83 DE AM 56 15 15 LAUREN 1 PH RA HB AR H R MA A 20 CY MG LL C TA GL BL ET GO W LE 00 01 06 0 30 15 ME 31 ON Ac VE 16 -2 -1 .0 D 00 AN ti NV 96 3- 4- 00 CA 30 ve [...] 60 3- 1- 00 CA 97 ve NV 17 20 20 0 RE 44 DE [...] 20 5- 5- 00 CA 66 ve MO 05 20 20 RE 91 DE AM 45 14 15 LAUREN 0 PH RA HB AR H R MA A 40 CY MG LL C TA GL BL ET GO W MO 00 04 06 0 20 14 ME [...] -2 -0 .0 D 96 AN ti NV 96 3- 2- 00 CA 06 ve [...] RA TR H A FA A TE NV ST LY ST PH RI AR PS MA CY , LE 00 01 05 0 30 15 ME 30 ON Ac VE 16 -2 -1 .0 D 94 AN ti NV 96 3- 8- 00 CA 52 ve [...] 60 3- 3- 00 CA 52 ve NV 17 20 20 0 RE 86 DE N 80 15 15 LAUREN HC 5 PH RA L AR H ER MA A CY 50 0 LL MG C GL TA BL GO ET W LO 00 04 05 0 30 5 ME 30 ON Ac PE 09 -0 -1 0. D 93 AN ti RA 30 1- 2- 00 CA 19 ve NV 31 20 20 0 RE 01 DE DE 10 15 15 LAUREN 2 5 PH RA AR H MG MA A CY CA PS LL UL C E GL GO W CI 65 12 05 0 30 30 ME 30 ON Ac TA 16 -1 -0 0. D 91 AN ti LO 20 5- 8- 00 CA 99 ve MO 05 20 20 0 RE 01 DE AM 45 14 15 LAUREN 0 PH RA HB AR H R MA A 40 CY MG LL C TA GL BL ET GO W LE 00 01 05 0 30 15 ME 30 ON Ac VE 16 -2 -0 .0 D 91 AN ti NV 96 3- 6- 00 CA 80 ve [...] RA SA H FE FA A TY NV LY 28 G PH LA AR NC [...] ti OR 60 00 CA 39 ve NV 17 20 20 0 RE 95 DE [...] -2 -1 .0 D 86 AN ti NV 96 3- 4- 00 CA 42 ve [...] 20 5- 0- 00 CA 88 ve MO 05 20 20 0 RE 79 DE [...] RA TR H A FA A TE NV ST LY ST PH RI AR PS MA CY , LE 00 01 04 0 30 13 ME 30 ON Ac VE 16 -2 -0 .0 D 66 AN ti NV 96 3- 4- 00 CA 69 ve [...] 60 1- 1- 00 CA 39 ve NV 17 20 20 0 RE 56 DE [...] RA PE H N FA A NE NV ED LY LE PH 31 AR GX [...] 60 1- 9- 00 CA 45 ve NV 17 20 20 0 RE 75 DE [...] RA SA H FE FA A TY NV LY 28 G PH LA AR NC MA ET CY S , ON 53 02 03 11 50 25 CO 51 ON Ac ET 88 -2 -1 0. MM 17 AN ti OU 50 0- 6- 00 ON 74 ve CH 24 20 20 0 WE DE 45 15 15 AL LAUREN UL 0 TH RA TR H A FA A TE NV ST LY ST PH RI AR PS MA CY , CI 65 12 03 0 30 30 ME 30 ON Ac TA 16 -1 -1 0. D 77 AN ti LO 20 5- 2- 00 CA 77 ve MO 05 20 20 0 RE 04 DE [...] 30 1- 4- 00 CA 55 ve NV 31 20 20 0 RE 32 DE DE 10 14 15 LAUREN 2 5 PH RA AR H MG MA A CY CA PS LL UL C E GL GO W MO 00 04 02 0 20 14 ME [...] G 69 20 20 0 WE DE NV 61 15 15 AL LAUREN X 9 TH RA 70 H -3 FA A 0 NV FL LY EX PE PH N AR [...] RA TR H A FA A TE NV ST LY ST PH RI AR PS [...] 60 1- 8- .0 CA 34 ve NV 17 20 20 00 RE 63 DE N 80 15 15 LAUREN HC 5 PH RA L AR H ER MA A CY 50 0 LL MG C GL TA BL GO ET W CI 65 12 02 0 30 30 ME 30 ON Ac TA 16 -1 -1 0. D 70 AN ti LO 20 5- 1- 00 CA 47 ve MO 05 20 20 0 RE 40 DE [...] G 69 20 20 RE 99 DE NV 61 15 15 LAUREN X 9 PH [...] RA PE H N FA A NE NV ED LY LE PH 31 AR GX [...] -2 -2 0. MM 11 AN ti NV 96 1- 3- 00 ON 63 ve R 43 20 20 0 WE DE FL 81 15 15 AL LAUREN EX 0 TH RA TO H UC FA A H NV 10 LY 0 UN PH IT AR S/ MA ML CY , ME 60 01 01 0 12 30 ME 30 ON Ac TF 50 -2 -2 00 D 66 AN ti OR 50 1- 1- .0 CA 20 ve NV 26 20 20 00 RE 13 DE [...] RA SA H FE FA A TY NV LY 28 G PH LA AR NC [...] TH RA TR H A2 FA A NV GL LY UC OS PH E AR SY MA ST CY , ON 53 01 01 0 50 25 CO 51 ON Ac ET 88 -1 -1 0. MM 09 AN ti OU 50 6- 6- 00 ON 86 ve CH 24 20 20 0 WE DE 45 15 15 AL LAUREN UL 0 TH RA TR H A FA A TE NV ST LY ST PH RI AR PS [...] 50 5- 5- 00 CA 89 ve NV 26 20 20 RE 01 DE N 00 15 15 LAUREN HC 2 PH RA L AR H ER MA A CY 50 0 LL MG C GL TA BL GO ET W ME 60 01 01 0 20 1 ME 30 ON Ac TF 50 -1 -1 .0 D 64 AN ti OR 50 4- 4- 00 CA 86 ve NV 26 20 20 RE 60 DE N 00 15 15 LAUREN HC 2 PH RA L AR H ER MA A CY 50 0 LL MG C GL TA BL GO ET W CI 65 12 01 0 30 30 ME 30 ON Ac TA 16 -1 -1 0. D 62 AN ti LO 20 5- 2- 00 CA 74 ve MO 05 20 20 0 RE 47 DE [...] 0 10 5 ME 30 ON Ac NV 00 -2 -2 0. D 59 AN [...] 20 5- 5- 00 CA 36 ve MO 05 20 20 0 RE 06 DE [...] 20 3- 8- 00 CA 54 ve MO 05 20 20 RE 47 DE AM [...] RA CE AR H TA MA A NV CY NO PH LL EN C GL [...] 20 3- 1- 00 CA 56 ve MO 05 20 20 0 RE 66 DE [...] 20 3- 3- 00 CA 39 ve MO 05 20 20 0 RE 80 DE [...] RA CE AR H TA MA A NV CY NO PH LL EN C GL [...] 20 3- 4- 00 CA 93 ve MO 05 20 20 0 RE 40 DE AM 45 14 14 LAUREN 0 PH RA HB AR H R MA A 40 CY MG LL C TA GL BL ET GO W LO 00 04 09 0 30 5 ME 30 ON Ac PE 09 -0 -0 0. D 30 AN ti RA 30 1- 2- 00 CA 07 ve NV 31 20 20 0 RE 61 DE [...] 20 3- 8- 00 CA 05 ve MO 05 20 20 0 RE 62 DE [...] 20 3- 7- 00 CA 28 ve MO 05 20 20 0 RE 28 DE AM 45 14 14 LAUREN 0 PH RA HB AR H R MA A 40 CY MG LL C TA GL BL ET GO W LO 51 04 06 0 30 5 ME 30 ON Ac PE 07 -0 -1 0. D 10 AN ti RA 90 1- 6- 00 CA 69 ve NV 69 20 20 0 RE 52 DE [...] 20 3- 0- 00 CA 48 ve MO 05 20 20 0 RE 62 DE [...] 20 3- 2- 00 CA 06 ve MO 05 20 20 0 RE 8 DE AM 45 13 14 LAUREN 0 PH RA HB AR H R MA A 40 CY MG LL C TA GL BL ET GO W NV 00 04 04 0 35 15 ME [...] 20 3- 4- 00 CA 18 ve MO 05 20 20 0 RE 0 DE [...] 40 3- 5- 00 CA 68 ve MO 50 20 20 0 RE 6 DE AM 91 13 14 LAUREN 3 PH RA HB AR H R MA A 40 CY MG LL C TA GL BL ET GO W LO 51 04 02 0 30 5 ME 24 ON Ac PE 07 -0 -2 0. D 57 AN ti RA 90 1- 4- 00 CA 16 ve NV 69 20 20 0 RE 1 DE [...] TA C BL GL ET GO W NV 00 04 02 0 35 15 ME [...] 40 3- 3- 00 CA 06 ve MO 50 20 20 0 RE 4 DE [...] C MG GL TA GO B W MO 00 04 01 0 20 14 ME [...] 40 3- 3- 00 CA 39 ve MO 50 20 20 0 RE 7 DE AM 91 13 14 LAUERN 3 PH RA HB AR H R [...] BL LL ET C GL GO W NV 00 04 12 0 35 15 ME [...] 40 3- 5- 00 CA 47 ve MO 50 20 20 0 RE 2 DE AM 91 13 13 LAURNE 3 PH RA HB AR H R [...] 40 3- 6- 00 CA 72 ve MO 50 20 20 0 RE 8 DE [...] 20 3- 8- 00 CA 30 ve MO 05 20 20 0 RE 8 DE AM 45 13 13 LAUREN 0 PH RA HB AR H R MA A 40 CY MG LL C TA GL BL ET GO W NV 00 04 09 0 35 15 ME [...] 20 3- 6- 00 CA 19 ve MO 05 20 20 0 RE 9 DE [...] 34 4- 4- 00 CA 62 ve MO 59 20 20 0 RE 6 DE [...] 40 3- 8- 00 CA 65 ve MO 50 20 20 0 RE 3 DE [...] 20 3- 9- 00 CA 01 ve MO 05 20 20 0 RE 8 DE [...] 40 3- 0- 00 CA 44 ve MO 50 20 20 0 RE 0 DE [...] C MG GL TA GO B W MO 60 04 05 0 12 5 ME [...] ME NT LL C GL GO W MO 60 04 05 0 12 5 ME [...] 40 3- 3- 00 CA 96 ve MO 50 20 20 0 RE 8 DE [...] 46 1- 9- 00 CA 40 ve MO 08 20 20 0 RE 8 DE [...] 90 1- 1- 00 CA 80 ve NV 69 20 20 0 RE 9 DE [...] C BL GL ET GO W MO 45 04 04 0 30 3 ME [...] 46 1- 1- 00 CA 79 ve MO 08 20 20 0 RE 2 DE [...] 2- 3- 00 CA 12 LE ve MO 02 20 20 0 RE 9 ET IL 50 11 12 R 1 PH 2. AR HE 5 MA NR MG CY Y TA LL BL C ET ME 62 11 05 0 24 12 ME 79 NO Ac TF 58 -0 -1 0. D 62 RF ti OR 40 7- 1- 00 CA 13 LE ve NV 45 20 20 0 RE 0 ET [...] 2- 6- 00 CA 10 LE ve MO 02 20 20 0 RE 8 ET [...] 7- 3- 00 CA 70 LE ve NV 45 20 20 0 RE 0 ET [...] 7- 6- 00 CA 98 LE ve NV 45 20 20 0 RE 5 ET [...] 2- 4- 00 CA 02 LE ve MO 02 20 20 0 RE 9 ET [...] 7- 5- 00 CA 52 LE ve NV 45 20 20 0 RE 9 ET [...] 2- 0- 00 CA 53 LE ve MO 02 20 20 0 RE 6 ET [...] 7- 3- 00 CA 88 LE ve NV 03 20 20 0 RE 4 ET [...] 2- 3- 00 CA 89 LE ve MO 02 20 20 0 RE 0 ET [...] 7- 6- 00 CA 37 LE ve NV 03 20 20 RE 9 ET N [...] 2- 2- 00 CA 67 LE ve MO 02 20 20 RE ET IL 50 [...] 7- 6- 00 CA 15 LE ve NV 03 20 20 RE ET N 01 [...] 7- 4- 00 CA 19 LE ve MO 02 20 20 RE ET IL 50 [...] 7- 9- 00 CA 76 LE ve MO 37 20 20 RE ET AM 30 11 11 R 1 PH HB AR HE R MA NR 40 CY Y MG LL C TA BL ET ME 68 09 10 3 60 30 ME 59 NO Ac TF 38 -1 -1 .0 D 43 RF ti OR 20 6- 4- 00 CA 62 LE ve NV 03 20 20 RE 5 ET N [...] 3- 3- 00 CA 01 S ve MO 37 20 20 RE 4 LA AM [...] 6- 2- 00 CA 63 LE ve MO 02 20 20 RE 3 ET IL [...] 6- 6- 00 CA 62 LE ve NV 03 20 20 RE 5 ET N [...] 6- 6- 00 CA 63 LE ve MO 02 20 20 RE 3 ET IL [...] 4- 00 NG 74 SO ve MO 02 20 20 TO 2 N IL [...] 4- 4- 00 NG 74 SO ve NV 03 20 20 TO 5 N N [...] 1 30 30 WA 71 RO Ac MO 00 -2 -2 .0 L- 00 BE [...] 8- 9- 00 MA 71 RT ve NV 05 20 20 RT 1 S N [...] 07 1 14 14 76 GR Ac MO 00 -1 -1 .0 86 OS ti [...] 20 6- 8- 00 83 H ve NV 03 20 20 SH N 00 11 [...] 6 30 30 CO 60 PI Ac MO 00 -0 -0 .0 MARINA 67 NG [...] 40 3- 6- 00 MB 98 ve NV 47 20 20 IA DE N 45 [...] 6- 1- 00 PH 49 ER ve NV 03 20 20 AR RY N 01 [...] 0 30 30 CV 53 GR Ac MO 00 -1 -1 .0 S 52 OS [...] 0 20 5 CV 53 AA Ac MO 00 -1 -1 .0 S 53 RO [...] RE 2 ZA 70 11 11 KENDELL MO 1 PH HN IN AR G E [...] 5- 5- 00 CA 30 LE ve NV 03 20 20 RE 4 ET N [...] NR BL CY Y ET LL C MO 68 11 03 3 18 3 ME [...] 5- 5- 00 CA 30 LE ve NV 03 20 20 RE 4 ET N [...] 6- 6- 00 CA 03 LE ve NV 25 20 20 RE 7 ET N [...] HE MA NR CY Y LL C MO 68 11 01 3 18 3 ME [...] HE MA NR CY Y LL C MO 68 11 11 3 18 3 ME [...] 50 LL 0 C MG TA B MO 68 12 12 00 20 3 ME [...] A TA RU BL WE ET FA NV L ZY 00 01 03 00 15 15 PA 36 No Ac MO 00 -0 -2 .0 UL 41 t ti EX 24 2- 4- 00 J 96 Av ve A 42 20 20 ai 20 03 08 08 RU la 0 WE bl MG e IN TA C BL DB ET A RU WE FA NV L Results Labs Lab Lab Date Result [...] reference intervals for this test in the [facility] Comment: Test Directory ([employer]). Comment: Performed by [employer], Comment: [address], [facility] [place] [address] Comment: [email or web address], Kassidy Abreu MD - Lab. Director VALPROIC [...] Use AA Comment: result if patient is -Maltese, non AA result otherwise. Creatin 0.7 0.7-1.3 [...] Procedure DOS Code Location Performer Comment HEMOGLOBI 67410 COMBINED COMBINED N 7 PHYSICIAN PHYSICIAN GLYCOSYLA S LAB S LAB ABDI A1C CLOSED 7693 [facility]UCTION 1 [facility] TEMPOROMA NDIBULAR DISLOCATI ON Encounters Encounter Start End Date Code Location Performer Type Date CRITICAL THE [address] REGIONAL - 2 2 MED [facility] - 2 2 [facility] - 1 1 [facility] T
--- NOTE | 2017-10-16 16:43 | Emergency Room Report ---
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 N Clinical Suspician of Infection? N Mental Status: 1 - Regular (Normal Baseline) Sepsis Risk:Low Sepsis Risk Have you (or family members/close friends) recently traveled outside the [place]? N If Yes, where/when: Have you had exposure to infectious disease within the past month? TB? Other? Specify: Source patient, RN notes reviewed, family, RN/MD Exam Limitations no limitations Comment This is a 52-year-old gentleman from [facility] brought in by EMS with near syncopal symptoms for the past 3 weeks. Patient denies any recent change in his medications, denies any chest pain denies any shortness of breath. He has a history of hyponatremia. ALLERGIES Coded Allergies: NO KNOWN ALLERGIES (10/16/17) Home Medications Reported Medications Aspirin (Aspirin, Chewable) 81 MG PO DAILY Divalproex Sodium (Depakote) 500 MG PO BID Glipizide (Glucotrol) 5 MG PO DAILY LISINOPRIL (Lisinopril) 2.5 MG PO DAILY METFORMIN HCL (Metformin) 1,000 MG PO BID Risperidone (Risperdal 1 Mg Tab) 2 MG PO BID History Medical History General Angina: No OR: No Hypertension? Yes Hyperlipidemia? Yes COPD? No Asthma? No CVA? No Seizures? Yes Diabetes? Yes Insulin Dependent: No Insulin Pump: No Home FSBS? Yes GB Disease: No MRSA? No TB? No Cancer? No Immunization Hx Ped.Immunizations UTD Yes DT/Tetanus UNKNOWN Surgical Hx Previous Surgery?Y LEFT SHOULDER & ELBOW Social History Smoking Hx Smoker: Unknown if Ever Smoked Tobacco: Yes Type Snuff Packs/day < 1 Pack Alcohol Alcohol: No Review of Systems All Other Systems Reviewed and Negative Psychiatric/Neurological other (dizzy, near syncopal) Physical Exam Vital Signs Vital Signs Date Time Temp Pulse Resp B/P Pulse O2 O2 Flow FiO2 Ox Delivery Rate 10/16 1752 58 18 118/75 98 10/16 1723 97.5 58 18 136/74 98 10/16 1654 57 151/74 10/16 1654 64 134/78 10/16 1636 66 150/76 10/16 1607 97.7 62 18 130/63 100 General Appearance normal appearance, WD/WN, no apparent distress Eye Exam - bilateral eye normal exam, bilateral eye PERRL, bilateral eye EOMI Respiratory Status Yes: trachea midline, chest symmetrical, non tender chest. No: respiratory distress. Lung Sounds bilateral: normal breath sounds, lungs clear. Cardiovascular normal exam, regular rate/rhythm, no peripheral edema, no gallop, no JVD, no murmur, no rub, normal peripheral pulses Gastrointestinal normal bowel sounds, normal exam, non tender, soft, no organomegaly Extremities non-tender, normal range of motion, normal inspection Neurologic alert, district gauger II-XII nml as tested, normal exam, oriented x 3 Mental status normal mood/affect Medical Decision Making LABS/Meds/Orders Pt receiving controlled substance in ED? No Comment 1725-upon evaluation patient appears medically stable, in no acute distress, advised him to follow-up with Dr. Yoel Stevenson for additional outpatient workup regarding his near syncopal episodes. Results/Orders Laboratory Tests 10/16/17 1642: Urine Color Cancelled, Urine Appearance Cancelled, Urine pH Cancelled, Ur Specific [place] Cancelled 10/16/17 1600: Creatine Kinase 138, CK-MB (CK-2) Rel Index 1.8, CK and CKMB Interp 2.5, Troponin I < 0.02 10/16/17 1600: Sodium 134 L, Potassium 3.5, Chloride 97 L, Carbon Dioxide 30, BUN 10, Creatinine 1.1, Estimated Creat Clear 122, Estimated GFR (MDRD) 70, Glucose 109 H, Calcium 9.1, Total Bilirubin 0.4, AST 14 L, ALT 15, Alkaline Phosphatase 67, Total Protein 7.3, Albumin 3.9, Globulin 3.4 H, Albumin/Globulin Ratio 1.1, WBC 10.2, RBC 3.90 L, Hgb 12.4 L, Hct 36.6 L, MCV 94.0, RDW 12.6, Plt Count 220, MPV 8.2, Gran % 72.0, Gran # 7.4, Lymphocytes % 18.6, Monocytes % 8.1, Eosinophils % 1.0, Basophils % 0.4, Lymphocytes # 1.9, Monocytes # 0.8, Eosinophils # 0.1, Basophils # 0.0, PUBS MCHC 33.5, MCH 31.5 H Current Medication Orders Sig/Brennan Start time Last Medication Dose Route Stop Time Status Admin Sodium Chloride 1,000 ML .Q1H1M 10/16 1645 DC IV 10/16 1745 Sodium Chloride 10 ML PRN PRN 10/16 1645 DCD IV 10/17 1642 Orders Procedure Date/time Status ELECTROCARDIOGRAM REQUEST 10/16 1700 Active CARDIAC ENZYMES 10/16 1700 Complete CBC WITH AUTO DIFF 10/16 164 Complete CHEM 12 PROFILE 10/16 164 Complete ORTHOSTATIC B/P 10/16 1607 Active 12 LEAD EKG-BESSON (INITIAL) 10/16 UNK Active 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 of ischemic chgs, no ectopy, normal QRS, normal [place], no EKG for comparison, non-spec. ST/Twave chgs, ST elevation, ST depression, LBBB, RBBB, ectopy, abnormal Q waves Departure Departure Time of Disposition 1736 Disposition DC Home or Self Care(routine) Clinical Impression Primary Impression: Near syncope Condition STABLE Referrals Yoel Stevenson MD: Tomorrow-Call Office Patient Instructions DI for Syncope in Adults (Fainting) Additional Instructions Please follow-up with the supervisor self service store, Dr. Yoel Stevenson. Call tomorrow morning noted to arrange a follow-up appointment within the next 3-4 days. Discharge Counseling Counseled pt/family regarding diagnosis, test results, medications/RX, home care, follow up needs Comment Please follow-up with the supervisor self service store, Dr. Yoel Stevenson. Call tomorrow morning noted to arrange a follow-up appointment within the next 3-4 days. ED Critical Care Critical Care No at 0055
--- NOTE | 2017-10-16 16:43 | Emergency Room Report ---
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 N Clinical Suspician of Infection? N Mental Status: 1 - Regular (Normal Baseline) Sepsis Risk:Low Sepsis Risk Have you (or family members/close friends) recently traveled outside the [place]? N If Yes, where/when: Have you had exposure to infectious disease within the past month? TB? Other? Specify: Source patient, RN notes reviewed, family, RN/MD Exam Limitations no limitations Comment This is a 52-year-old gentleman from [facility] brought in by EMS with near syncopal symptoms for the past 3 weeks. Patient denies any recent change in his medications, denies any chest pain denies any shortness of breath. He has a history of hyponatremia. ALLERGIES Coded Allergies: NO KNOWN ALLERGIES (10/16/17) Home Medications Reported Medications Aspirin (Aspirin, Chewable) 81 MG PO DAILY Divalproex Sodium (Depakote) 500 MG PO BID Glipizide (Glucotrol) 5 MG PO DAILY LISINOPRIL (Lisinopril) 2.5 MG PO DAILY METFORMIN HCL (Metformin) 1,000 MG PO BID Risperidone (Risperdal 1 Mg Tab) 2 MG PO BID History Medical History General Angina: No OR: No Hypertension? Yes Hyperlipidemia? Yes COPD? No Asthma? No CVA? No Seizures? Yes Diabetes? Yes Insulin Dependent: No Insulin Pump: No Home FSBS? Yes GB Disease: No MRSA? No TB? No Cancer? No Immunization Hx Ped.Immunizations UTD Yes DT/Tetanus UNKNOWN Surgical Hx Previous Surgery?Y LEFT SHOULDER & ELBOW Social History Smoking Hx Smoker: Unknown if Ever Smoked Tobacco: Yes Type Snuff Packs/day < 1 Pack Alcohol Alcohol: No Review of Systems All Other Systems Reviewed and Negative Psychiatric/Neurological other (dizzy, near syncopal) Physical Exam Vital Signs Vital Signs Date Time Temp Pulse Resp B/P Pulse O2 O2 Flow FiO2 Ox Delivery Rate 10/16 1752 58 18 118/75 98 10/16 1723 97.5 58 18 136/74 98 10/16 1654 57 151/74 10/16 1654 64 134/78 10/16 1636 66 150/76 10/16 1607 97.7 62 18 130/63 100 General Appearance normal appearance, WD/WN, no apparent distress Eye Exam - bilateral eye normal exam, bilateral eye PERRL, bilateral eye EOMI Respiratory Status Yes: trachea midline, chest symmetrical, non tender chest. No: respiratory distress. Lung Sounds bilateral: normal breath sounds, lungs clear. 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 No Comment 1725-upon evaluation patient appears medically stable, in no acute distress, advised him to follow-up with Dr. Yoel Stevenson for additional outpatient workup regarding his near syncopal episodes. Results/Orders Laboratory Tests 10/16/17 1642: Urine Color Cancelled, Urine Appearance Cancelled, Urine pH Cancelled, Ur Specific [place] Cancelled 10/16/17 1600: Creatine Kinase 138, CK-MB (CK-2) Rel Index 1.8, CK and CKMB Interp 2.5, Troponin I < 0.02 10/16/17 1600: Sodium 134 L, Potassium 3.5, Chloride 97 L, Carbon Dioxide 30, BUN 10, Creatinine 1.1, Estimated Creat Clear 122, Estimated GFR (MDRD) 70, Glucose 109 H, Calcium 9.1, Total Bilirubin 0.4, AST 14 L, ALT 15, Alkaline Phosphatase 67, Total Protein 7.3, Albumin 3.9, Globulin 3.4 H, Albumin/Globulin Ratio 1.1, WBC 10.2, RBC 3.90 L, Hgb 12.4 L, Hct 36.6 L, MCV 94.0, RDW 12.6, Plt Count 220, MPV 8.2, Gran % 72.0, Gran # 7.4, Lymphocytes % 18.6, Monocytes % 8.1, Eosinophils % 1.0, Basophils % 0.4, Lymphocytes # 1.9, Monocytes # 0.8, Eosinophils # 0.1, Basophils # 0.0, PUBS MCHC 33.5, MCH 31.5 H Current Medication Orders Sig/Brennan Start time Last Medication Dose Route Stop Time Status Admin Sodium Chloride 1,000 ML .Q1H1M 10/16 1645 DC IV 10/16 1745 Sodium Chloride 10 ML PRN PRN 10/16 1645 DCD IV 10/17 1642 Orders Procedure Date/time Status ELECTROCARDIOGRAM REQUEST 10/16 1700 Active CARDIAC ENZYMES 10/16 1700 Complete CBC WITH AUTO DIFF 10/16 164 Complete CHEM 12 PROFILE 10/16 164 Complete ORTHOSTATIC B/P 10/16 1607 Active 12 LEAD EKG-BESSON (INITIAL) 10/16 UNK Active 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 of ischemic chgs, no ectopy, normal QRS, normal [place], no EKG for comparison, non-spec. ST/Twave chgs, ST elevation, ST depression, LBBB, RBBB, ectopy, abnormal Q waves Departure Departure Time of Disposition 1736 Disposition DC Home or Self Care(routine) Clinical Impression Primary Impression: Near syncope Condition STABLE Referrals Yoel Stevenson MD: Tomorrow-Call Office Patient Instructions DI for Syncope in Adults (Fainting) Additional Instructions Please follow-up with the core composer feeder, Dr. Yoel Stevenson. Call tomorrow morning noted to arrange a follow-up appointment within the next 3-4 days. Discharge Counseling Counseled pt/family regarding diagnosis, test results, medications/RX, home care, follow up needs Comment Please follow-up with the core composer feeder, Dr. Yoel Stevenson. Call tomorrow morning noted to arrange a follow-up appointment within the next 3-4 days. ED Critical Care Critical Care No at 0055
[2017-10-16 16:47] LABS: LYMPH # 1.9 K/mm3 (0.7-4.5); LYMPH % 18.6 % (10-50)
[2017-10-16 16:52] LABS: HEMOGLOBIN 12.4 g/dL (14.1-18.0)
--- OUTSIDE RECORDS SUMMARY | 2017-10-16 17:02 | External Medical Summary Rpt | CCD ---
Author Author , LANCE Organization LANCE Address Unknown Phone [email or web address] Care Team Providers Care Freight Weigher Name Role Phone [facility] Unavailable Unavailable NCE SERV, [facility] Unavailable Unavailable [facility], [facility] N[place], NORTON Unavailable Unavailable [facility] Unavailable Unavailable PHARMACY, [facility] MORGAN SEKOU, MORGAN Unavailable Unavailable SEKOU [facility], Unavailable Unavailable [facility] Unavailable Unavailable [place], [facility] Unavailable Unavailable LAB, [facility] Unavailable Unavailable LAB, [facility] Unavailable Unavailable PHARMACY,, [facility], [place] DEPT, Unavailable Unavailable [facility] DEPT [facility] # [id number], Unavailable Unavailable [facility] # [id number] [facility] Unavailable Unavailable LLC, [facility] EMMICK ROS, EMMICK Unavailable Unavailable [facility] Unavailable Unavailable DI[facility]NOSTIC SE, [facility] Unavailable Unavailable [facility]OCIATES, [facility] Unavailable Unavailable TRANSPORTATION [facility], [facility], HAPPY Unavailable Unavailable FEET [facility] Unavailable Unavailable INC, [facility] Unavailable Unavailable SERVICE, [facility] Unavailable Unavailable DEPT, [facility] DEPT COMFORT, COMFORT Unavailable Unavailable [facility] TO Unavailable Unavailable [facility], [facility] Unavailable [facility], [facility] Un[facility] Unavailable Unavailable [facility], [facility] Unavailable Unavailable H D, [facility] [place] [facility] Unavailable Unavailable [facility] RAD[facility] Unavailable Unavailable IMAGING, [facility] Un[facility]available LLC, [facility] Unavailable Unavailable [facility] Unavailable Unavailable SERVICE I, [facility] SERVICE I Glenn STEWART, Unavailable Unavailable Glenn STEWART ROSIO TAWNYA, ROSIO TAWNYA Unavailable Unavailable [facility] Unavailable Unavailable [facility], [facility], [facility] Unavailable Unavailable [facility], LISA [place] [facility] Unavailable Unavailable [facility], [facility], Unavailable Unavailable [facility] Unavailable Unavailable INCORPORAT, [facility] Unavailable Unavailable [facility], [facility] Unavailable Unavailable [facility] Un[facility], [facility] SCIFRES, SCIFRES Unavailable [facility]available [facility], Unavailable [facility] Unavailable Un[facility]ANS, [facility] Unavailable Unavailable [facility], [facility], Unavailable Unavailable [facility], [facility] Unavailable Unavailable [facility] CL[facility]IC [facility] # Unavailable Unavailable [id number], [facility] # [id number] [id number] # Unavailable Unavailable [id number], [id number] # [id number] [facility] Unavailable Unavailable [facility] Unavailable Unavailable [facility], [facility] Purpose Continuity of Care Document - 12-08-2007 through 2016 Problems Code Diagnosis DOS Provider Status [id number] IMPAIRED 09-18-2017 [facility] GLUCOSE LAB B351 TINEA 08-28-2017 COMFORT UNGUIUM E1140 TYPE 2 DM 08-28-2017 [facility] WITH DIABETIC NEUROPATHY UNSPECIFIED O71911 PAIN IN 08-28-2017 COMFORT RIGHT TOES [id number] PAIN IN 08-28-2017 COMFORT LEFT TOES R300 DYSURIA 08-14-2017 [facility] LAB R410 DISORIENTAT 07-04-2017 [facility] UNSPECIFIED PHYSICIANS R69 ILLNESS 07-04-2017 FEDERATED UNSPECIFIED TRANSPORTAT ION SER E1165 TYPE 2 07-03-2017 DI[facility]ES [facility] MELLITUS PHYSICIANS WITH HYPERGLYCEM IA E118 TYPE 2 07-03-2017 [facility] MELLITUS PH[facility]IANS W/UNS COMPLICATIO NS E871 HYPO-OSMOLA 07-03-2017 LITOlivia AND [facility] HYPONATREMI PHYSICIANS A R4182 ALTERED 07-01-2017 [facility] STATUS OF [facility] UNSPECIFIED R55 SYNCOPE AND 07-01-2017 [facility] COLLAPSE [facility] Z008 ENCOUNTER 07-01-2017 ST FOR OTHER [facility] EXAMINATION H5213 MYOPIA 05-02-2017 [facility] BILATERAL H524 PRESBYOPIA 05-02-2017 SCIFRES E119 TYPE 2 03-02-2017 [facility]ET[facility] MEDICAL MELLITUS SUPPLY MOLI WITHOUT COMPLICATIO NS D649 ANEMIA 12-12-2016 [facility]ED UNSPECIFIED PHYSICIANS [place] Z125 ENCOUNTER 12-12-2016 [facility] SCREENING [facility] MALIGNANT LA NEOPLASM PROSTATE R7989 OTHER SPEC 10-19-2016 [facility] ABNORMAL URBAN FINDINGS [facility] BLOOD CHEMISTRY Z23 ENCOUNTER 09-03-2016 [facility] DEPT N Z09466 OTHER LONG 08-15-2016 [facility] CURRENT DRUG THERAPY Y35975 TYPE 2 05-04-2016 [facility]ERN W/HYPOGLYCE FERNANDO W/O COMA R4781 SLURRED 05-04-2016 [facility] SPEECH AMBULANCE SERVICE H5203 HYPERMETROP 04-24-2016 MORGAN SEKOU IA BILATERAL [id number] REGULAR 04-24-2016 MORGAN SEKOU ASTIGMATISM BILATERAL E039 HYPOTHYROID 09-29-2015 [facility] UNSPECIFIED N400 BENIGN 09-29-2015 [facility] HYPERPLASIA WO LW URIN TRACT SX Z5181 ENCOUNTER 09-29-2015 [facility] THERAPEUTIC DRUG LEVEL MONITORING 96151 DIAB W/O 06-12-2015 [facility] MENTION COMP TYPE II/UNS TYPE UNCNTRL V701 GENERAL 06-09-2015 [facility] EX[facility]YSICI[facility], REQUESTED AUTHORITY V5869 LONG-TERM 06-08-2015 [facility] (CURRENT[facility] USE OF OTHER MEDICATIONS 09595 DIAB W/O 03-08-2015 [facility] COMP TYPE DIAGNOSTICS II/UNS NOT INCORPORAT STATED UNCNTRL 4011 ESSENTIAL 03-08-2015 [facility] HYPERTENSIO [facility] N, BENIGN INCORPORAT V7644 SPECIAL 03-08-2015 [facility] MALIGNANT INCORPORAT NEOPLASM OF PROSTATE 41926 NUCLEAR 03-03-2015 [facility] SCLEROSIS 3670 HYPERMETROP 03-03-2015 EMMICK ROS IA 3674 PRESBYOPIA 03-03-2015 EMMICK ROS 43638 DIAB W/OTH 03-01-2015 ROSIO TAWNYA MANIFESTS TYPE II/UNS TYPE UNCNTRL 88200 DIARRHEA 03-01-2015 ROSIO TAWNYA 60011 UNSPECIFIED 09-29-2014 [facility] DUE TO VIRUSES 79480 HORDEOLUM 09-26-2014 [facility] 76577 DO LOC 08-17-2014 ROSIO TAWNYA HYPERPLASIA PROS W/O UR OBST & OTH LUTS 7241 PAIN IN 08-17-2014 [facility] SP[facility] DIAGNOST[facility] SE 7242 LUMBAGO 08-17-2014 ROSIO TAWNYA 42695 UNSPECIFIED 03-02-2014 ROSIO TAWNYA URINARY INCONTINENC E 20785 POLYURIA 03-02-2014 ROSIO TAWNYA 54663 REGULAR 08-25-2013 [facility] ASTIGMATISM 59792 REFRACTIVE 08-25-2013 EMM[facility] ROS AMBLYOPIA 47153 08-25-2013 [facility] V6709 FOLLOW-UP 02-25-2013 [facility]ENTAL EXAMINATION CLINIC FOLLOWING OTHER SURGERY 8300 CLOSED 01-27-2013 [facility] 8301 OPEN 01-27-2013 [facility] DISLOCATION CLIN[facility] OF [facility] V5409 OTH 01-27-2013 [facility] INVOLVING [facility]AT[facility] INTERNAL FIXATION DEVICE E8497 PLACE OF 01-20-2013 DENTAL OCCURRENCE CLINIC RESIDENTIAL INSTITUTION E9178 STRIKE 01-20-2013 DENTAL AGNST/STRUC CLINIC K ACC OTH STATNRY OBJ W/FALL 26868 OTHER 11-28-2012 [facility] 7224 DEGENERATIO 11-27-2012 [facility] CERVICAL IMAGING INTERVERTEB RAL DISC 53072 DEGEN 11-27-2012 [facility] LUMBAR/LUMB RADIOLOGY OSACRAL IMAGING INTERVERTEB RAL DISC 7231 CERVICALGIA 11-27-2012 [facility] 7245 UNSPECIFIED 11-27-2012 [facility] BACKACHE [facility] IMAGING 9222 CONTUSION 11-27-2012 [facility] OF MED CTR ABDOMINAL WALL 9599 INJURY 11-27-2012 MEDICAL OTHER AND CENTER AMB UNSPECIFIED SERVICE I UNSPECIFIED SITE E8859 FALL FROM 11-27-2012 MEDICAL OTHER CENTER AMB SLIPPING SERVICE I TRIPPING OR STUMBLING V741 SCREENING 08-19-2012 [facility] FOR H D PULMONARY TUBERCULOSI S 5180 PULMONARY 07-11-2012 [facility] 7220 DISPLCMT 07-11-2012 [facility] C[facility] INTERVERT [facility] DISC WITHOUT MYELOPATHY 8020 NASAL 07-11-2012 [place] [facility], SERV CLOSED [facility] FRACTURE 74422 INJURY OF 07-11-2012 [facility] NECK OTHER FOUNDATIO AND UNSPECIFIED 33283 OTHER 07-11-2012 [place] [facility] IN[facility] OF SERV CHEST WALL FOUNDATIO E9889 INJURY 07-11-2012 [place] [facility] UNSPEC SERV MEANS UNDET FOUNDATIO ACC/PRPOSLY INFLICTED 97338 OTHER 04-05-2012 [facility] OF AMBULANCE CONSCIOUSNE TAXIN SS 7813 LACK OF 04-05-2012 [facility] COORDINATIO CO N AMBULANCE TAXIN 460 ACUTE 10-15-2011 [facility] ITIS 5269 UNSPECIFIED 10-12-2011 [facility] DISEASE OF CO THE [facility]WS AMBULANCE TAXIN 23534 OTHER 10-02-2011 [facility]CIF[facility] INC DISORDERS V5489 OTHER 10-02-2011 [facility] 2724 OTHER AND 08-28-2011 COM[facility]ED UNSPECIFIED PHYSICIANS [place] HYPERLIPIDE FERNANDO 6019 UNSPECIFIED 08-28-2011 [facility] PROSTATITIS LA 318 OTHER 05-24-2011 JOURNEY TO SPECIFIED INDEPENDENT INTELLECTUA ANDREEIN L DISABILITIE S 2761 HYPOSMOLALI 05-03-2011 [facility]OR [facility] A 90813 UNSPEC 05-03-2011 [facility] EPILEPSY PRIMARY WITHOUT CARE RURAL MENTION INTRACT EPILEPSY 8951 TRAUMATIC 05-03-2011 [facility] AMBULA NCE COMPLICATED SERV 0091 COLITIS 11-09-2009 [facility] TROENTERIT INF ORIGIN 295 SCHIZOPHREN 12-08-2007 [facility] [place] DISORDERS 298 OTHER 12-08-2007 [facility] [place] PSYCHOSES 7801 HALLUCINATI 12-08-2007 [facility] FIRE DEPT Medications Na ND Rx Da Fi Fi Am Da Di Ph RX Ph St me C No te ll ll ou ys ag ar # ys at rm s nt no ma ic us Or Da si cy ia de te s n re d BE 00 10 11 60 30 00 ME Ac NZ 60 -0 -0 .0 00 D ti TR 32 6- 3- 00 15 CA ve OP 43 20 20 07 RE IN 73 17 17 18 E 2 83 PH ME AR S MA 0. CY 5 MG TA B IN 50 10 11 1. 30 00 ME Ac VE 45 -1 -0 50 00 D ti GA 80 1- 3- 0 15 CA ve 56 20 20 09 RE JHA [address] 1 09 PH EN AR NA MA CY 23 4 MG /1 .5 ML PACK 00 09 10 90 30 00 [...] 30 6- 0- 00 15 CA ve VA 31 20 20 01 RE DE 10 17 17 94 2 1 61 PH AR MG MA CY CA PS UL E LI 16 09 10 30 30 00 ME Ac SI 72 -2 -2 .0 00 D ti NO 90 5- 0- 00 14 CA ve IL 37 20 20 99 RE IL 71 [...] AR MG MA CY TA BL ET MA 00 09 10 40 5 00 ME Ac PA 90 -2 -2 .0 00 D ti P 41 5- 0- 00 15 CA ve 32 98 20 20 01 RE 5 26 17 17 07 MG 1 12 PH AR TA MA BL CY ET DO 45 09 10 60 30 00 ME Ac CU 80 -2 -2 .0 00 D ti SA 20 5- 0- 00 14 CA ve TE 48 20 20 99 RE 67 17 17 95 SO 8 40 PH DI AR UM MA CY 10 0 MG SO FT GE L CI 65 09 10 30 30 00 ME Ac TA 86 -2 -2 .0 00 D ti LO 20 5- 0- 00 14 CA ve IL 00 20 20 99 RE AM 70 17 17 95 5 39 PH HB AR R MA 40 CY MG TA BL ET BE 00 09 10 56 28 00 ME Ac NZ 60 -1 -0 .0 00 D ti TR 32 1- 6- 00 14 CA ve OP 43 20 20 92 RE IN 73 17 17 80 E 2 28 PH ME AR S MA 0. CY 5 MG TA B PACK 00 09 10 42 28 00 ME Ac LO 37 -1 -0 .0 00 D ti PE 80 1- 6- 00 14 CA ve RI 32 20 20 92 RE DO 70 17 17 80 L 1 26 PH 5 AR MG MA CY TA BL ET IN 50 09 10 1. 30 00 ME Ac VE 45 -1 -0 50 00 D ti GA 80 3- 6- 0 14 CA ve 56 20 20 85 RE JHA [address] 1 12 PH EN AR NA MA CY 23 4 MG /1 .5 ML CI 65 08 09 30 30 00 ME Ac TA 86 -2 -2 .0 00 D ti LO 20 8- 2- 00 14 CA ve IL 00 20 20 85 RE AM 70 [...] MA 0 CY MG TA BL ET LI 43 08 09 30 30 00 ME Ac SI 54 -2 -2 .0 00 D ti NO 70 8- 2- 00 14 CA ve IL 35 20 20 85 RE IL 31 [...] MA CY TA BL ET RI 00 08 09 60 30 00 ME Ac SP 37 -0 -0 .0 00 D ti ER 83 5- 1- 00 14 CA ve ID 51 20 20 72 RE ON 39 17 17 53 E 1 95 PH 3 AR MG MA CY TA BL ET LE 31 08 09 60 30 00 ME Ac VE 72 -0 -0 .0 00 D ti TI 20 4- 1- 00 14 CA ve RA 53 20 20 70 RE CE 71 17 17 64 TA 2 86 PH M AR 50 MA 0 CY MG TA BL ET DO 45 08 08 60 30 00 ME Ac CU 80 -0 -2 .0 00 D ti SA 20 2- 5- 00 14 CA ve TE 48 20 20 69 RE 67 17 17 35 SO 8 78 PH DI AR UM MA CY 10 0 MG SO FT GE L RI 00 07 08 60 30 00 [...] AR MG MA CY TA BL ET AZ 50 07 08 6. 5 00 ME Ac IT 11 -2 -1 00 00 D ti HR 10 4- 8- 0 14 CA ve OM 78 20 20 65 RE YC 75 17 17 41 IN 1 71 PH AR 25 MA 0 CY MG TA BL ET GL 16 07 08 [...] 20 2- 4- 00 14 CA ve IL 00 20 20 56 RE AM 70 [...] MA CY TA BL ET CI 65 06 07 30 30 00 ME Ac TA 86 -1 -0 .0 00 D ti LO 20 3- 7- 00 14 CA ve IL 00 20 20 37 RE AM 70 17 17 99 5 38 PH HB AR R MA 40 CY MG TA BL ET DI 00 06 07 60 30 00 ME Ac VA 37 -1 -0 .0 00 D ti LP 80 3- 7- 00 14 CA ve RO 47 20 20 37 RE EX 30 17 17 99 1 39 PH SO AR D MA ER CY 50 0 MG TA B TR 50 06 07 30 30 00 ME Ac AZ 11 -1 -0 .0 00 D ti OD 10 3- 7- 00 14 CA ve ON 44 20 20 37 RE E 10 17 17 99 15 1 40 PH 0 AR MG MA CY TA BL ET GL 16 06 07 [...] AR MA MG CY TA BL ET DO 45 05 [...] .0 00 D ti ER 83 4- 6- 00 14 CA ve ID 51 20 20 23 RE ON 49 17 17 89 E 1 41 PH 4 AR MG MA CY TA BL ET OX 00 05 [...] -0 .0 00 D ti LO 20 5- 9- 00 14 CA ve IL 00 20 20 19 RE AM 70 17 17 14 5 32 PH HB AR R MA 40 CY MG TA BL ET TR 50 05 06 30 30 00 ME Ac AZ 11 -1 -0 .0 00 D ti OD 10 5- 9- 00 14 CA ve ON 44 20 20 19 RE E 10 17 17 14 15 1 34 PH 0 AR MG MA CY TA BL ET GL 16 05 06 60 30 00 ME Ac IM 72 -1 -0 .0 00 D ti EP 90 5 9 00 14 CA ve IR 00 20 20 19 RE ID 20 17 17 14 E 1 35 PH 2 AR MG MA CY TA BL ET LO 00 05 06 30 30 00 ME Ac RA 78 -1 -0 .0 00 D ti TA 15 5- 9- 00 14 CA ve DI 07 20 20 19 RE NE 70 17 17 14 1 36 PH 10 AR MA MG CY TA BL ET DI 00 05 06 60 30 00 ME Ac VA 37 -1 -0 .0 00 D ti LP 80 5- 9- 00 14 CA ve RO 47 20 20 19 RE EX 30 17 17 14 1 33 PH SO AR D MA ER CY 50 0 MG TA B LE 31 05 06 60 30 00 ME Ac VE 72 -1 -0 .0 00 D ti TI 20 7- 00 14 CA ve RA 53 20 20 20 RE CE 70 17 17 98 TA 5 46 PH M AR 50 MA 0 CY MG TA BL ET IB 55 05 06 90 30 00 ME Ac UP 11 -0 -0 .0 00 D ti RO 10 9- 2 00 14 CA ve FE 68 20 [...] -1 .0 00 D ti UT 34 14 CA ve YN 97 20 20 [...] MA CY TA BL ET GL 16 04 05 60 30 00 ME Ac IM 72 -1 -1 .0 00 D ti EP 90 7- - 00 14 CA ve IR 00 20 [...] MA 0 CY MG TA BL ET DI 00 [...] 20 7- 2- 00 14 CA ve IL 00 20 20 06 RE AM 70 17 17 27 5 57 PH HB AR R MA 40 CY MG TA BL ET IB 55 04 05 90 30 00 ME Ac UP 11 -1 -0 .0 00 D ti RO 10 1- 5- 00 14 CA ve FE 68 20 20 02 RE N 40 17 17 06 80 5 40 PH 0 AR MG MA CY TA BL ET LO 00 03 04 30 30 00 ME Ac RA 78 -2 -2 .0 00 D ti TA 15 3- 1- 00 13 CA ve DI 07 20 [...] .0 00 D ti EP 90 3- 1- 00 13 CA ve IR 00 20 20 94 RE ID 20 17 17 26 E 1 10 PH 2 AR MG MA CY TA BL ET LE 31 03 04 60 30 00 ME Ac VE 72 -2 -2 .0 00 D ti TI 20 3- 1- 00 13 CA ve RA 53 20 [...] ER CY 50 0 MG TA B DO 45 03 04 60 30 00 ME Ac CU 80 -2 -2 .0 00 D ti SA 20 7- 1- 13 CA ve TE 48 20 20 94 RE 67 17 17 64 SO 8 57 PH DI AR UM MA CY 10 0 MG SO FT GE L CI 65 03 04 30 30 00 ME Ac TA 86 -2 -1 .0 00 D ti LO 20 1- 4- 00 13 CA ve IL 00 20 20 91 RE AM 70 [...] MG SO FT GE L RI 00 02 03 60 30 00 [...] .0 00 D ti OR 20 7- 4- 00 13 CA ve VA 00 20 20 81 RE N 89 17 17 35 HC 9 36 PH L AR 50 MA 0 CY MG TA BL ET TR 50 02 03 30 30 00 ME Ac AZ 11 -2 -2 .0 00 D ti OD 10 7- 4- 00 13 CA ve ON 44 20 20 81 RE E 10 17 17 35 15 1 48 PH 0 AR MG MA CY TA BL ET LE 31 02 03 60 30 00 ME Ac VE 72 -2 -2 .0 00 D ti TI 20 7- 4- 00 13 CA ve RA 53 20 20 81 RE CE 70 17 17 35 TA 5 46 PH M AR 50 MA 0 CY MG TA BL ET LO 00 02 03 30 30 00 ME Ac RA 78 -2 -2 .0 00 D ti TA 15 7- 4- 00 13 CA ve DI 07 20 20 81 RE NE 70 17 17 35 1 40 PH 10 AR MA MG CY TA BL ET DI 00 02 [...] .0 00 D ti EP 90 7- 4- 00 13 CA ve IR 00 20 20 81 RE ID 20 17 17 35 E 1 43 PH 2 AR MG MA CY TA BL ET CI 65 02 03 30 30 00 ME Ac TA 86 -2 -1 .0 00 D ti LO 20 0- 7- 00 13 CA ve IL 00 20 20 77 RE AM 70 [...] 20 2- 3- 00 13 CA ve VA 00 20 20 52 RE N 89 [...] .0 00 D ti SA 20 2- 3- 00 13 CA ve TE 48 20 20 52 RE 67 17 17 99 SO 8 79 PH DI AR UM MA CY 10 0 LL MG C SO FT GE L DI 16 02 02 60 30 00 ME Ac VA 71 -0 -2 .0 00 D ti LP 40 1- 4- 00 13 CA ve RO 48 20 20 68 RE EX 50 17 17 09 2 85 PH SO AR D MA ER CY 50 0 MG TA B GL 16 02 02 60 30 00 ME Ac IM 72 -0 -2 .0 00 D ti EP 90 1 13 CA ve IR 00 20 20 [...] -2 .0 00 D ti OD 10 4 13 CA ve ON 44 20 20 68 RE E 10 17 17 09 15 1 86 PH 0 AR MG MA CY TA BL ET LO 00 02 02 30 30 00 ME Ac RA 78 -0 -2 .0 00 D ti TA 15 13 CA ve DI 07 20 20 68 RE NE 70 17 17 09 1 90 PH 10 AR MA MG CY TA BL ET ME 65 02 02 30 30 00 ME Ac TF 86 -0 -2 .0 00 D ti OR 20 13 CA ve VA 00 20 20 68 RE N 89 17 17 09 HC 9 91 PH L AR 50 MA 0 CY MG TA BL ET RI 00 02 02 60 30 00 ME Ac SP 37 -0 -2 .0 00 D ti ER 83 1 4 13 CA ve ID 51 20 20 68 RE ON 49 17 17 09 E 1 93 PH 4 AR MG MA CY TA BL ET OX 00 02 02 60 30 00 ME Ac YB 60 -0 -2 .0 00 D ti UT 34 1 13 CA ve YN 97 20 20 68 RE IN 52 17 17 09 5 8 92 PH AR MG MA CY TA BL ET LE 31 02 02 60 30 00 ME Ac VE 72 -0 -2 .0 00 D ti TI 20 13 CA ve RA 53 20 20 68 RE CE 70 17 17 09 TA 5 89 PH M AR 50 MA 0 CY MG TA BL ET CI 65 01 02 30 30 00 ME Ac TA 86 -2 -1 .0 00 D ti LO 20 7 13 CA ve IL 00 20 20 64 RE AM 70 [...] MA CY TA BL ET LO 00 12 01 30 [...] 20 5- 7- 00 13 CA ve VA 00 20 20 40 RE N 89 16 17 45 HC 9 80 PH L AR 50 MA 0 CY MG LL TA C BL ET OX 00 12 60 30 00 ME Ac YB 60 -0 -2 .0 00 D ti UT 34 5- 7- 00 13 CA ve YN 97 20 20 40 RE IN 52 16 17 45 5 8 82 PH AR MG MA CY TA BL LL ET C RI 00 12 60 30 00 ME Ac SP 37 [...] 30 30 00 ME Ac TA 86 -0 -2 .0 00 D ti LO 20 5- 7- 00 13 CA ve IL 00 20 20 40 RE AM 70 16 17 45 5 71 PH HB AR R MA 40 CY MG LL C TA BL ET DI 16 12 01 60 30 00 ME Ac VA 71 -0 -2 .0 00 D ti LP 40 5- 7- 00 13 CA ve RO 48 20 20 40 RE EX 50 16 17 45 2 72 PH SO AR D MA ER CY 50 LL 0 C MG TA B TR 50 12 01 30 30 00 [...] -2 .0 00 D ti EP 90 5- 7- 00 13 CA ve IR 00 20 20 40 RE ID 20 16 17 45 E 1 76 PH 2 AR MG MA CY TA BL LL ET C LE 31 12 01 60 30 00 ME Ac VE 72 -0 -2 .0 00 D ti TI 20 5- 7- 00 13 CA ve RA 53 20 20 40 RE CE 71 16 17 45 TA 2 77 PH M AR 50 MA 0 CY MG LL TA C BL ET DI 29 04 06 0 60 30 [...] TA GO B W LE 68 04 06 0 60 [...] C BL GL ET GO W CI 65 06 06 0 30 6 ME 31 ON Ac TA 16 -1 -2 .0 D 02 AN ti LO 20 7- 4- 00 CA 08 ve IL 05 20 20 RE 89 DE AM [...] G 69 20 20 RE 37 DE VA 61 15 15 LAUREN X 9 PH RA 70 AR H -3 MA A 0 CY FL EX LL PE C N GL SY RN GO W IB 53 06 06 0 [...] RA SA H FE FA A TY VA LY 28 G PH LA AR NC MA ET CY S , IL 00 04 06 0 20 14 ME 31 ON Ac OM 59 -0 -2 0. D 02 AN ti ET 15 1- 2- 00 CA 85 ve PACK 30 20 20 0 RE 04 DE ZI 71 15 15 LAUREN NE 0 PH RA AR H 25 MA A CY MG LL TA C BL GL ET GO W MU 45 06 06 0 22 5 [...] RA CE AR H TA MA A VA CY NO PH LL EN C GL 5- 32 GO 5 W CI 00 06 06 0 70 7 ME 31 ON Ac TA 90 -1 -1 .0 D 02 AN ti LO 46 7- 7- 00 CA 08 ve IL 08 20 20 RE 83 DE AM 56 15 15 LAUREN 1 PH RA HB AR H R MA A 20 CY MG LL C TA GL BL ET GO W VE 68 06 06 0 12 12 ME 31 ON Ac NL 38 -1 -1 0. D 02 AN ti AF 20 7- 7- 00 CA 08 ve AX 03 20 20 0 RE 82 DE IN 51 15 15 LAUREN E 6 PH RA HC AR H L MA A ER CY 75 LL C MG GL CA GO P W LE 00 01 06 0 30 15 ME 31 ON Ac VE 16 -2 -1 .0 D 00 AN ti VA 96 3- 4- 00 CA 30 ve R 43 20 20 RE 17 DE FL 81 15 15 LAUREN EX 0 PH RA TO AR H UC MA A H CY 10 0 LL UN C IT GL S/ ML GO W RI 27 04 06 0 [...] C GL GO W VE 51 10 06 0 30 [...] TA GO B W GL 55 01 06 0 30 [...] 60 3- 1- 00 CA 97 ve VA 17 20 20 0 RE 44 DE [...] 20 5- 5- 00 CA 66 ve IL 05 20 20 RE 91 DE AM 45 14 15 LAUREN 0 PH RA HB AR H R MA A 40 CY MG LL C TA GL BL ET GO W DI 00 04 06 0 [...] CA GL PS UL GO E W NO 00 05 06 0 12 [...] C NE GL ED LE GO W MA 00 04 06 0 30 5 ME 30 ON Ac PA 90 -0 -0 0. D 98 AN ti P 41 1- 3- 00 CA 74 ve 50 98 20 20 0 RE 78 DE 0 86 15 15 LAUREN MG 1 PH RA AR H TA MA A BL CY ET LL C GL GO W IL 00 04 06 0 20 14 ME 30 ON Ac OM 59 -0 -0 0. D 98 AN ti ET 15 1- 3- 00 CA 74 ve PACK 30 20 20 0 RE 63 DE ZI 71 15 15 LAUREN NE 0 PH RA AR H 25 MA A CY MG LL TA C BL GL ET GO W LE 00 01 06 0 30 15 ME 30 ON Ac VE 16 -2 -0 .0 D 96 AN ti VA 96 3- 2- 00 CA 06 ve R 43 20 20 RE 47 DE FL 81 15 15 LAUREN EX 0 PH RA TO AR H UC MA A H CY 10 0 LL UN C IT GL S/ ML GO W DI 29 04 05 0 [...] TA C BL GL ET GO W ON 53 02 05 11 10 50 CO 51 ON Ac ET 88 -2 -2 00 MM 17 AN ti OU 50 0- 6- .0 ON 74 ve CH 24 20 20 00 WE DE 45 15 15 AL LAUREN UL 0 TH RA TR H A FA A TE VA ST LY ST PH RI AR PS MA CY , LE 00 01 05 0 30 15 ME 30 ON Ac VE 16 -2 -1 .0 D 94 AN ti VA 96 3- 8- 00 CA 52 ve R 43 20 20 RE 32 DE FL 81 15 15 LAUREN EX 0 PH RA TO AR H UC MA A H CY 10 0 LL UN C IT GL S/ ML GO W GL 55 01 05 0 30 [...] MG GL TA GO B W RI 27 04 05 0 47 [...] C GL GO W VE 51 10 05 0 [...] 60 3- 3- 00 CA 52 ve VA 17 20 20 0 RE 86 DE N 80 15 15 LAUREN HC 5 PH RA L AR H ER MA A CY 50 0 LL MG C GL TA BL GO ET W LO 00 04 05 0 30 5 ME 30 ON Ac PE 09 -0 -1 0. D 93 AN ti RA 30 1- 2- 00 CA 19 ve VA 31 20 20 0 RE 01 DE DE 10 15 15 LAUREN 2 5 PH RA AR H MG MA A CY CA PS LL UL C E GL GO W CI 65 12 05 0 30 30 ME 30 ON Ac TA 16 -1 -0 0. D 91 AN ti LO 20 5- 8- 00 CA 99 ve IL 05 20 20 0 RE 01 DE AM 45 14 15 LAUREN 0 PH RA HB AR H R MA A 40 CY MG LL C TA GL BL ET GO W IB 53 04 05 0 [...] C GL GO W LE 00 01 05 0 30 15 ME 30 ON Ac VE 16 -2 -0 .0 D 91 AN ti VA 96 3- 6- 00 CA 80 ve R 43 20 20 RE 49 DE FL 81 15 15 LAUREN EX 0 PH RA TO AR H UC MA A H CY 10 0 LL UN C IT GL S/ ML GO W NO 00 05 05 0 [...] RA SA H FE FA A TY VA LY 28 G PH LA AR NC [...] 0. D 89 AN ti OR 60 1- 9- 00 CA 39 ve VA 17 20 20 0 RE 95 DE [...] CY ET LL C GL GO W GL 00 01 04 0 30 30 ME 30 ON Ac IM 09 2 -1 0. D 86 AN ti EP 37 1- 7- CA 61 ve IR 25 20 20 0 RE 46 DE ID 60 15 15 LAUREN E 1 PH RA 4 AR H MG MA A CY TA BL LL ET C GL GO W VE 51 10 04 0 30 30 ME 30 ON Ac SI 24 -0 -1 0. D 86 AN ti CA 80 1 7- 00 CA 80 ve RE 15 20 20 0 RE 46 DE 10 14 15 LAUREN 10 3 PH RA AR H MG MA A CY TA BL LL ET C GL GO W DI 29 04 04 0 60 30 ME 30 ON Ac VA 30 -1 -1 0. D 86 AN ti LP 00 8 7 CA 80 ve RO 14 20 20 0 RE 32 DE EX 00 14 15 LAUREN 5 PH RA SO AR H D MA A DR CY 50 LL 0 C MG GL TA GO B W RI 27 04 04 0 60 [...] -2 -1 .0 D 86 AN ti VA 96 3- 4- 00 CA 42 ve [...] 20 5- 0- 00 CA 88 ve IL 05 20 20 0 RE 79 DE [...] RA TR H A FA A TE VA ST LY ST PH RI AR PS MA CY , LE 00 01 04 0 30 13 ME 30 ON Ac VE 16 -2 -0 .0 D 66 AN ti VA 96 3- 4- 00 CA 69 ve [...] 60 1- 1- 00 CA 39 ve VA 17 20 20 0 RE 56 DE [...] RA PE H N FA A NE VA ED LY LE PH 31 AR GX [...] C GL GO W GL 00 01 03 0 30 [...] 60 1- 9- 00 CA 45 ve VA 17 20 20 0 RE 75 DE N 80 15 15 LAUREN HC 5 PH RA L AR H ER MA A CY 50 0 LL MG C GL TA BL GO ET W ON 53 02 03 11 50 25 CO 51 ON Ac ET 88 -2 -1 0. MM 17 AN ti OU 50 0- 6- 00 ON 74 ve CH 24 20 20 0 WE DE 45 15 15 AL LAUREN UL 0 TH RA TR H A FA A TE VA ST LY ST PH RI AR PS MA CY , EA 08 02 03 11 10 50 CO 51 ON Ac SY 49 -2 -1 00 MM 17 AN ti 62 0- 6- .0 ON 75 ve TO 81 20 20 00 WE DE UC 80 15 15 AL LAUREN H 1 TH RA SA H FE FA A TY VA LY 28 G PH LA AR NC MA ET CY S , CI 65 12 03 0 30 30 ME 30 ON Ac TA 16 -1 -1 0. D 77 AN ti LO 20 5- 2- 00 CA 77 ve IL 05 20 20 0 RE 04 DE [...] 30 1- 4- 00 CA 55 ve VA 31 20 20 0 RE 32 DE DE 10 14 15 LAUREN 2 5 PH RA AR H MG MA A CY CA PS LL UL C E GL GO W IL 00 04 02 0 20 14 ME [...] G 69 20 20 0 WE DE VA 61 15 15 AL LAUREN X 9 TH RA 70 H -3 FA A 0 VA FL LY EX PE PH N AR SY MA RN CY , RI 68 04 02 0 60 30 [...] RA TR H A FA A TE VA ST LY ST PH RI AR PS MA CY , DI 29 04 02 0 [...] TA GO B W VE 51 10 02 0 30 30 [...] 60 1- 8- .0 CA 34 ve VA 17 20 20 00 RE 63 DE N 80 15 15 LAUREN HC 5 PH RA L AR H ER MA A CY 50 0 LL MG C GL TA BL GO ET W CI 65 12 02 0 30 30 ME 30 ON Ac TA 16 -1 -1 0. D 70 AN ti LO 20 5- 1- 00 CA 47 ve IL 05 20 20 0 RE 40 DE AM 45 14 15 LAUREN 0 PH RA HB AR H R MA A 40 CY MG LL C TA GL BL ET GO W DI 29 04 02 [...] TA GO B W LE 68 04 02 0 60 [...] GL ET GO W NO 00 01 01 0 30 30 ME 30 ON Ac VO 16 -2 -2 .0 D 66 AN ti LO 93 3- 6- 00 CA 69 ve G 69 20 20 RE 99 DE VA 61 15 15 LAUREN X 9 PH [...] RA PE H N FA A NE VA ED LY LE PH 31 AR GX [...] -2 -2 0. MM 11 AN ti VA 96 1- 3- 00 ON 63 ve R 43 20 20 0 WE DE FL 81 15 15 AL LAUREN EX 0 TH RA TO H UC FA A H VA 10 LY 0 UN PH IT AR S/ MA ML CY , ME 60 01 01 0 12 30 ME 30 ON Ac TF 50 -2 -2 00 D 66 AN ti OR 50 1- 1- .0 CA 20 ve VA 26 20 20 00 RE 13 DE [...] ET C GL GO W ON 53 01 01 0 10 7 CO 51 ON Ac ET 88 -1 -1 .0 MM 09 AN ti OU 50 4- 6- 00 ON 84 ve CH 44 20 20 WE DE 80 15 15 AL LAUREN UL 1 TH RA TR H A2 FA A VA GL LY UC OS PH E AR SY MA ST CY , ON 53 01 01 0 50 25 CO 51 ON Ac ET 88 -1 -1 0. MM 09 AN ti OU 50 6- 6- 00 ON 86 ve CH 24 20 20 0 WE DE 45 15 15 AL LAUREN UL 0 TH RA TR H A FA A TE VA ST LY ST PH RI AR PS MA CY , EA 08 01 01 0 10 50 CO 51 ON Ac SY 49 -1 -1 00 MM 09 AN ti 62 6- 6- .0 ON 88 ve TO 81 20 20 00 WE DE UC 80 15 15 AL LAUREN H 1 TH RA SA H FE FA A TY VA LY 28 G PH LA AR NC [...] ML LL C GL AL GO W GL 55 01 01 0 14 14 ME 30 ON Ac IM 11 1 -1 0. D 64 AN ti EP [...] 50 5- 5- 00 CA 89 ve VA 26 20 20 RE 01 DE N 00 15 15 LAUREN HC 2 PH RA L AR H ER MA A CY 50 0 LL MG C GL TA BL GO ET W ME 60 01 01 0 20 1 ME 30 ON Ac TF 50 -1 -1 .0 D 64 AN ti OR 50 4- 4- 00 CA 86 ve VA 26 20 20 RE 60 DE N 00 15 15 LAUREN HC 2 PH RA L AR H ER MA A CY 50 0 LL MG C GL TA BL GO ET W CI 65 12 01 0 30 30 ME 30 ON Ac TA 16 -1 -1 0. D 62 AN ti LO 20 5- 2- 00 CA 74 ve IL 05 20 20 0 RE 47 DE [...] 0 10 5 ME 30 ON Ac VA 00 -2 -2 0. D 59 AN [...] CA GL PS UL GO E W CI 65 12 12 0 30 30 ME 30 ON Ac TA 16 -1 -1 0. D 56 AN ti LO 20 5- 5- 00 CA 36 ve IL 05 20 20 0 RE 06 DE AM 45 14 14 LAUREN 0 PH RA HB AR H R MA A 40 CY MG LL C TA GL BL ET GO W HY 00 12 12 0 48 16 ME [address] 18 -1 -1 0. D 56 AN ti OX 50 5- 5- 00 CA 37 ve YZ 67 20 20 0 RE 27 DE IN 40 14 14 LAUREN E 5 PH RA PA AR H M MA A 25 CY MG LL C CA GL P GO W IB 53 04 12 0 [...] 20 3- 8- 00 CA 54 ve IL 05 20 20 RE 47 DE AM [...] RA CE AR H TA MA A VA CY NO PH LL EN C GL [...] D 44 AN ti LP 00 8- 00 CA 45 ve RO 14 20 [...] 20 3- 1- 00 CA 56 ve IL 05 20 20 0 RE 66 DE [...] 20 3- 3- 00 CA 39 ve IL 05 20 20 0 RE 80 DE [...] RA CE AR H TA MA A VA CY NO PH LL EN C GL [...] 8- 0- 00 CA 52 ve RO 13 20 20 0 RE 20 DE EX 90 14 14 LAUREN 5 [...] 20 3- 4- 00 CA 93 ve IL 05 20 20 0 RE 40 DE AM 45 14 14 LAUREN 0 PH RA HB AR H R MA A 40 CY MG LL C TA GL BL ET GO W LO 00 04 09 0 30 5 ME 30 ON Ac PE 09 -0 -0 0. D 30 AN ti RA 30 1- 2- 00 CA 07 ve VA 31 20 20 0 RE 61 DE [...] C GL GO W DI 29 04 08 0 [...] TA GO B W LE 68 04 08 0 60 [...] GL ET GO W RI 68 04 08 0 60 [...] 20 3- 8- 00 CA 05 ve IL 05 20 20 0 RE 62 DE [...] GL ET GO W DI 29 04 07 0 [...] TA GO B W RI 68 04 07 0 60 [...] 20 3- 7- 00 CA 28 ve IL 05 20 20 0 RE 28 DE AM 45 14 14 LAUREN 0 PH RA HB AR H R MA A 40 CY MG LL C TA GL BL ET GO W LO 51 04 06 0 30 5 ME 30 ON Ac PE 07 -0 -1 0. D 10 AN ti RA 90 1- 6- 00 CA 69 ve VA 69 20 20 0 RE 52 DE DE 02 14 14 LAUREN 2 0 PH RA AR H MG MA A CY CA PS LL UL C E GL GO W DI 29 04 06 [...] TA GO B W LE 68 04 06 0 60 [...] GL ET GO W RI 68 04 06 0 60 [...] 20 3- 0- 00 CA 48 ve IL 05 20 20 0 RE 62 DE [...] 20 3- 2- 00 CA 06 ve IL 05 20 20 0 RE 8 DE AM 45 13 14 LAUREN 0 PH RA HB AR H R MA A 40 CY MG LL C TA GL BL ET GO W VA 00 04 04 0 35 15 ME [...] 20 3- 4- 00 CA 18 ve IL 05 20 20 0 RE 0 DE [...] 40 3- 5- 00 CA 68 ve IL 50 20 20 0 RE 6 DE AM 91 13 14 LAUREN 3 PH RA HB AR H R MA A 40 CY MG LL C TA GL BL ET GO W LO 51 04 02 0 30 5 ME 24 ON Ac PE 07 -0 -2 0. D 57 AN ti RA 90 1- 4- 00 CA 16 ve VA 69 20 20 0 RE 1 DE [...] TA C BL GL ET GO W VA 00 04 02 0 35 15 ME [...] 40 3- 3- 00 CA 06 ve IL 50 20 20 0 RE 4 DE [...] TA C BL GL ET GO W 00 01 01 0 30 10 ME 23 ON Ac 18 -2 -2 0. D 72 AN ti 50 0- 0- 00 CA 11 ve 61 20 20 0 RE 8 DE 30 14 14 LAUREN 5 PH RA AR H MA A CY LL C GL GO W OX 68 01 01 0 [...] C MG GL TA GO B W IL 00 04 01 0 20 14 ME [...] 40 3- 3- 00 CA 39 ve IL 50 20 20 0 RE 7 DE AM 91 13 14 LAUREN 3 PH RA HB AR H R MA A 40 CY MG LL C TA GL BL ET GO W CL 62 12 12 0 [...] TA C BL GL ET GO W FL 00 12 12 [...] NT C ME GL NT GO W DI 62 04 12 0 [...] BL LL ET C GL GO W VA 00 04 12 0 35 15 ME [...] 40 3- 5- 00 CA 47 ve IL 50 20 20 0 RE 2 DE [...] C GL GO W LE 68 04 11 0 60 [...] TA GO B W DI 62 04 11 0 60 [...] 40 3- 6- 00 CA 72 ve IL 50 20 20 0 RE 8 DE [...] 20 3- 8- 00 CA 30 ve IL 05 20 20 0 RE 8 DE AM 45 13 13 LAUREN 0 PH RA HB AR H R MA A 40 CY MG LL C TA GL BL ET GO W VA 00 04 09 0 35 15 ME [...] 20 3- 6- 00 CA 19 ve IL 05 20 20 0 RE 9 DE [...] 34 4- 4- 00 CA 62 ve IL 59 20 20 0 RE 6 DE ED 31 13 13 LAUREN NI 5 PH RA SO AR H LO MA A NE CY 4 LL MG C GL DO SE GO PK W CE 00 09 09 0 10 1 ME 20 ON Ac PH 14 -0 -0 .0 D 48 AN ti AL 39 4- 4- 00 CA 48 ve EX 89 20 20 RE 7 DE IN 70 13 13 LAUREN 5 PH RA 50 AR H 0 MA A MG CY CA LL PS C UL GL E GO W DI 00 04 08 0 20 [...] 40 3- 8- 00 CA 65 ve IL 50 20 20 0 RE 3 DE [...] CY ET LL C GL GO W DI 62 04 07 0 [...] TA GO B W RI 51 04 07 0 60 [...] C BL GL ET GO W CI 65 05 07 0 15 30 ME 19 ON Ac TA 16 -1 -0 0. D 28 AN ti LO 20 3- 9- 00 CA 01 ve IL 05 20 20 0 RE 8 DE AM 45 13 13 LAUREN 0 PH RA HB AR H R MA A 40 CY MG LL C TA GL BL ET GO W RI 51 04 06 [...] TA GO B W LE 68 04 06 0 60 30 ME 19 ON Ac VE 18 -0 -2 0. D 04 AN ti TI 00 1- 7- 00 CA 13 ve RA 11 20 20 0 RE 8 DE CE 30 13 13 LAUREN TA 2 PH RA M AR H 50 MA A 0 CY MG LL TA C BL GL ET GO W 62 04 06 0 20 5 [...] 40 3- 0- 00 CA 44 ve IL 50 20 20 0 RE 0 DE AM 91 13 13 LAUREN 3 PH RA HB AR H R MA A 40 CY MG LL C TA GL BL ET GO W DI 62 04 05 [...] TA GO B W RI 51 04 05 0 60 [...] TA C BL GL ET GO W IL 60 04 05 0 12 5 ME [...] ME NT LL C GL GO W IL 60 04 05 0 12 5 ME [...] 40 3- 3- 00 CA 96 ve IL 50 20 20 0 RE 8 DE [...] ME NT LL C GL GO W LE 68 [...] C BL GL ET GO W CI 00 04 04 0 15 15 ME 17 ON Ac TA 90 -0 -2 0. D 94 AN ti LO 46 1- 9- 00 CA 40 ve IL 08 20 20 0 RE 8 DE [...] MG GL TA GO B W LO 51 04 04 0 30 5 ME 17 ON Ac PE 07 -0 -0 0. D 44 AN ti RA 90 1- 1- 00 CA 80 ve VA 69 20 20 0 RE 9 DE [...] TA C BL GL ET GO W IL 45 04 04 0 30 3 ME [...] 46 1- 1- 00 CA 79 ve IL 08 20 20 0 RE 2 DE AM 56 13 13 LAURNE 1 PH RA HB AR H R [...] D 44 AN ti P 41 1- - 00 CA 80 ve 50 98 20 20 0 RE 0 DE 0 86 13 13 LAUREN MG 1 PH RA AR H TA MA A BL CY ET LL C GL GO W BA 00 04 04 0 [...] C NT GL ME NT GO W LE 00 02 02 0 [...] 2- 3- 00 CA 12 LE ve IL 02 20 20 0 RE 9 ET IL 50 11 12 R 1 PH 2. AR HE 5 MA NR MG CY Y TA LL BL C ET ME 62 11 05 0 24 12 ME 79 NO Ac TF 58 -0 -1 0. D 62 RF ti OR 40 7- 1- 00 CA 13 LE ve VA 45 20 20 0 RE 0 ET [...] 2- 6- 00 CA 10 LE ve IL 02 20 20 0 RE 8 ET [...] 7- 3- 00 CA 70 LE ve VA 45 20 20 0 RE 0 ET [...] 7- 6- 00 CA 98 LE ve VA 45 20 20 0 RE 5 ET [...] 2- 4- 00 CA 02 LE ve IL 02 20 20 0 RE 9 ET [...] CY Y LL C DI 62 11 02 0 90 0 ME 75 NO Ac VA 75 -0 -1 0. D 73 RF ti LP 60 9- 5- 00 CA 52 LE ve RO 79 20 20 0 RE 8 ET EX 81 11 12 R 3 PH SO AR HE D MA NR DR CY Y 50 LL 0 C MG TA B ME 62 11 02 0 60 0 ME 75 NO Ac TF 58 -0 -1 0. D 73 RF ti OR 40 7- 5- 00 CA 52 LE ve VA 45 20 20 0 RE 9 ET N 20 11 12 R HC 1 PH L AR HE 1, MA NR 00 CY Y 0 MG LL C TA BL ET LI 00 12 02 0 30 0 ME 75 NO Ac SI 18 -1 -1 0. D 66 RF ti NO 50 2- 0- 00 CA 53 LE ve IL 02 20 20 0 RE 6 ET [...] C TA BL ET GL 51 11 02 0 30 0 ME 75 NO Ac IP 07 -0 -1 0. D 66 RF ti IZ 90 7- 0- 00 CA 54 LE ve ID 81 20 20 0 RE 2 ET E 02 11 12 R 5 0 PH MG AR HE MA NR TA CY Y BL ET LL C 00 12 02 0 30 0 ME [...] 7- 3- 00 CA 88 LE ve VA 03 20 20 0 RE 4 ET [...] 2- 3- 00 CA 89 LE ve IL 02 20 20 0 RE 0 ET [...] 7- 6- 00 CA 37 LE ve VA 03 20 20 RE 9 ET N [...] HE MA NR CY Y LL C 63 12 12 2 30 30 ME 37 NO Ac PI 73 -1 -1 .0 D 73 RF ti RI 90 2- 2- 00 CA 81 LE ve N 43 20 20 RE ET 81 40 11 11 R 1 PH MG AR HE MA NR CH CY Y EW AB LL LE C TA BL ET LI 00 12 12 2 30 30 ME 37 NO Ac SI 18 -1 -1 .0 D 73 RF ti NO 50 2- 2- 00 CA 67 LE ve IL 02 20 20 RE ET IL 50 11 11 R 1 PH 2. AR HE 5 MA NR MG CY Y TA LL BL C ET 00 11 11 0 12 3 [...] 7- 6- 00 CA 15 LE ve VA 03 20 20 RE ET N 01 11 11 R HC 0 PH L AR HE 1, MA NR 00 CY Y 0 MG LL C TA BL ET LI 00 11 11 0 30 30 ME 16 NO Ac SI 18 -0 -1 .0 D 74 RF ti NO 50 7- 4- 00 CA 19 LE ve IL 02 20 20 RE ET IL 50 11 11 R 1 PH 2. AR HE 5 MA NR MG CY Y TA LL BL C ET GL 51 11 11 0 30 [...] LL LE C TA BL ET DI 62 11 11 2 90 [...] 7- 9- 00 CA 76 LE ve IL 37 20 20 RE ET AM 30 11 11 R 1 PH HB AR HE R MA NR 40 CY Y MG LL C TA BL ET ME 68 09 10 3 60 30 ME 59 NO Ac TF 38 -1 -1 .0 D 43 RF ti OR 20 6- 4- 00 CA 62 LE ve VA 03 20 20 RE 5 ET N [...] 3- 3- 00 CA 01 S ve IL 37 20 20 RE 4 LA AM [...] 6- 2- 00 CA 63 LE ve IL 02 20 20 RE 3 ET IL [...] 6- 6- 00 CA 62 LE ve VA 03 20 20 RE 5 ET N [...] 6- 6- 00 CA 63 LE ve IL 02 20 20 RE 3 ET IL [...] 4- 4- 00 NG 74 SO ve IL 02 20 20 TO 2 N IL [...] 4- 4- 00 NG 74 SO ve VA 03 20 20 TO 5 N N [...] 1 30 30 WA 71 RO Ac IL 00 -2 -2 .0 L- 00 BE ti EX 24 00 MA 71 RT ve A 11 20 20 RT 0 S 5 53 11 11 MA MG 0 PH RV AR IN TA MA D BL CY ET # 10 27 83 ME 00 07 07 1 60 30 WA 71 RO Ac TF 78 -2 -2 .0 L- 00 BE ti OR 15 8- 9- 00 MA 71 RT ve VA 05 20 20 RT 1 S N 26 11 11 MA HC 1 PH RV L AR IN 1, MA D 00 CY 0 # MG 10 TA 27 BL 83 ET DI 00 07 07 0 60 30 WA 71 RO Ac VA 37 -2 -2 .0 L- 00 BE ti LP 81 8 9- 00 MA 71 RT ve RO [...] 07 1 14 14 76 GR Ac IL 00 -1 -1 .0 86 OS ti EX 24 3- 3 00 94 S ve A 42 20 20 LA 20 03 11 11 RR 0 Y MG TA BL ET RI 00 07 07 0 60 30 76 VA Ac SP 09 -0 -0 .0 82 IS ti ER 37 6 8 00 84 H ve ID 24 20 20 SH ON 30 11 11 RI E 6 4 MG TA BL ET ME 68 07 07 0 42 21 76 VA Ac TF 38 -0 -0 .0 82 IS ti OR 20 6- 8- 00 83 H ve VA 03 20 20 SH N 00 11 11 RI HC 5 L 1, 00 0 MG TA BL ET SI 68 07 07 0 21 21 76 VA Ac MV 38 -0 -0 .0 82 IS ti 20 6 8- 00 85 H ve TA 06 [...] 6 30 30 CO 60 PI Ac IL 00 -0 -0 .0 MARINA 67 NG [...] 40 3- 6- 00 MB 98 ve VA 47 20 20 IA DE N 45 [...] 6- 1- 00 PH 49 ER ve VA 03 20 20 AR RY N 01 [...] 0 30 30 CV 53 GR Ac IL 00 -1 -1 .0 S 52 OS [...] 0 20 5 CV 53 AA Ac IL 00 -1 -1 .0 S 53 RO [...] Y ET LL C ME 68 02 03 3 39 20 ME 53 NO Ac TF 38 -2 -2 .0 D 43 RF ti OR 20 5- 5- 00 CA 30 LE ve VA 03 20 20 RE 4 ET N 01 11 11 R HC 0 PH L AR HE 1, MA NR 00 CY Y 0 MG LL C TA BL ET CY 68 03 03 3 20 10 ME 54 CO Ac CL 08 -2 -2 .0 D 30 OP ti OB 40 5- 5- 00 CA 36 ER ve EN 39 20 20 RE 2 ZA 70 11 11 KENDELL IL 1 PH HN IN AR G E MA 10 CY MG LL C TA BL ET 00 03 03 3 20 10 ME 54 CO Ac 09 -2 -2 .0 D 30 OP ti 30 5- 5- 00 CA 37 ER ve 14 20 20 RE 2 99 11 11 KENDELL 3 PH HN AR G MA CY LL C DI 62 02 03 3 39 20 ME 53 NO Ac VA 75 -2 -2 .0 D 36 RF ti LP 60 3- 3- 00 CA 27 LE ve RO 79 20 20 RE 3 ET EX 81 11 11 R 3 PH SO AR HE D MA NR DR CY Y 50 LL 0 C MG TA B PO 51 02 03 3 25 15 ME 53 NO Ac LY 99 -2 -2 5. D 43 RF ti ET 10 5- 3- 00 CA 86 LE ve HY 45 20 20 0 RE 8 ET LE 75 11 11 R NE 8 PH AR HE GL MA NR YC CY Y OL LL 33 C 50 PO WD MA 00 03 03 3 30 5 ME 53 NO Ac PA 90 -0 -2 .0 D 66 RF ti P 41 4- 1- 00 CA 21 LE ve 32 98 20 20 RE 5 ET 5 26 11 11 R MG 1 PH AR HE TA MA NR BL CY Y ET LL C IL 68 11 03 3 18 3 ME [...] 11 11 R 3 PH AR HE NAVEEN NR CY Y LL C MA 00 [...] 5- 5- 00 CA 30 LE ve VA 03 20 20 RE 4 ET N [...] 6- 6- 00 CA 03 LE ve VA 25 20 20 RE 7 ET N [...] C MG TA B MA 00 12 01 3 30 5 ME 51 NO Ac PA 90 -2 -1 .0 D 54 RF ti P 41 4- 7- 00 CA 91 LE ve 32 98 20 20 RE 6 ET 5 26 10 11 R MG 1 PH AR HE TA MA NR BL CY Y ET LL C 00 08 01 3 42 7 ME [...] HE MA NR CY Y LL C PO 51 11 01 3 25 15 ME 50 NO Ac LY 99 -0 -1 5. D 06 RF ti ET 10 3- 0- 00 CA 27 LE ve HY 45 20 20 0 RE 8 ET LE 75 10 11 R NE 8 PH AR HE GL MA NR YC CY Y OL LL 33 C 50 PO WD IL 68 11 01 3 18 3 ME [...] C MG TA B DI 62 08 12 3 60 30 [...] 10 10 R MG 1 PH AR CARLA WILSON MA NR BL CY Y ET LL C PO 51 11 12 3 25 15 ME 50 NO Ac LY 99 -0 -2 5. D 06 RF ti ET 10 3- 4- 00 CA 27 LE ve HY 45 20 20 0 RE 8 ET LE 75 10 10 R NE 8 PH AR CARLA COLVIN MA NR YC CY Y OL LL 33 C 50 PO WD MA 00 11 12 3 30 5 ME 50 NO Ac PA 90 -2 -1 .0 D 60 RF ti P 41 3- 5- 00 CA 61 LE ve 32 98 20 20 RE 5 ET 5 26 10 10 R MG 1 PH AR CARLA WILSON MA NR BL CY Y ET LL [...] OL LL 33 C 50 PO WD 00 09 12 3 30 30 ME 48 NO Ac 00 -1 -0 .0 D 62 RF ti 24 0- 8- 00 CA 88 LE ve 42 20 20 RE 8 ET 03 10 10 R 3 PH AR CARLA HODGE NR CY Y LL C MA 00 11 12 3 30 5 ME 50 NO Ac PA 90 -2 -0 .0 D 60 RF ti P 41 3- 8- 00 CA 61 LE ve 32 98 20 20 RE 5 ET 5 26 10 10 R MG 1 PH AR CARLA WILSON MA NR BL CY Y ET LL C MA 00 11 12 3 30 5 ME 50 NO Ac PA 90 -2 -0 .0 D 60 RF ti P 41 3- 1- 00 CA 61 LE ve 32 98 20 20 RE 5 ET 5 26 10 10 R MG 1 PH AR CARLA WILSON MA NR BL CY Y ET LL [...] HE MA NR CY Y LL C IL 68 11 11 3 18 3 ME [...] LL 0 C MG TA B 00 02 02 00 30 5 ME [...] E LL C 00 02 02 00 21 [...] HE MA NR CY Y LL C IL 68 12 12 00 20 3 ME 41 NO Ac OM 38 -1 -1 .0 D 33 RF ti ET 20 0- 7- 00 CA 99 LE ve PACK 04 20 20 RE 2 ET ZI 11 09 09 R NE 0 PH AR HE 25 MA NR CY Y MG LL TA C BL ET DI 62 08 12 03 60 30 ME 38 NO Ac VA 75 -3 -1 .0 D 72 RF ti LP 60 1- 7- 00 CA 99 LE ve RO 79 20 20 RE 2 ET EX 81 09 09 R 3 PH SO AR HE D MA NR DR CY Y 50 LL 0 C MG TA B 00 09 12 02 30 30 ME 39 NO Ac 00 -1 -0 .0 D 15 RF ti 24 6- 3- 00 CA 03 LE ve 42 20 20 RE 9 ET 03 09 09 R 3 PH AR HE MA NR CY Y LL C DO 00 11 12 00 60 30 ME 40 NO Ac K 90 -2 -0 .0 D 99 RF ti 10 42 7- 3- 00 CA 00 LE ve 0 24 20 20 RE 6 ET MG 46 09 09 R 1 PH CA AR HE PS MA NR UL CY Y E LL C DI 62 08 11 03 [...] Y LL C DI 62 08 10 01 [...] MG TA B DO 00 09 10 00 60 30 ME 39 NO Ac K 90 -2 -0 .0 D 44 RF ti 10 42 8- 8- 00 CA 13 LE ve 0 24 20 20 RE 0 ET MG 46 09 09 R 1 PH CA AR HE PS MA NR UL CY Y E LL C DI 62 08 09 01 [...] NR CY Y LL C DO 00 08 09 00 60 30 [...] 0 C MG TA B 00 03 08 05 30 30 ME 34 NO Ac 00 -1 -2 .0 D 70 RF ti 24 8- 7- 00 CA 49 LE ve 42 20 20 RE 3 ET 03 09 09 R 3 PH AR HE MA NR CY Y LL C DI 62 08 08 00 30 30 [...] CY Y E LL C DI 62 03 08 05 [...] MG TA B DI 62 02 07 05 30 30 [...] C SO FT GE L 00 04 07 02 5. 5 ME 35 NO Ac 90 -0 -0 00 D 23 RF ti 41 9- 2- 0 CA 84 LE ve 05 20 20 RE 9 ET 56 09 09 R 1 PH AR HE MA NR CY Y LL C DI 62 02 07 04 30 30 [...] 0 C MG TA B 00 04 06 02 30 30 ME 35 NO Ac 90 -0 -1 .0 D 23 RF ti 41 9- 8- 00 CA 84 LE ve 05 20 20 RE 9 ET 56 09 09 R 1 PH AR HE NAVEEN NR CY Y LL C 00 03 06 02 30 30 ME [...] 0 C MG TA B DO 62 03 05 02 60 30 ME 34 NO Ac CU 58 -0 -2 .0 D 34 RF ti SA 40 4- 1- 00 CA 30 LE ve TE 68 20 20 RE 0 ET 30 09 09 R SO 1 PH DI AR HE UM MA NR CY Y 10 0 LL MG C SO FT GE L 00 04 05 01 30 30 ME 35 NO Ac 90 -0 -2 .0 D 23 RF ti 41 9- 1- 00 CA 84 LE ve 05 20 20 RE 9 ET 56 09 09 R 1 PH AR HE MA NR CY Y LL C DI 62 03 05 02 60 30 ME 34 NO Ac VA 75 -0 -0 .0 D 26 RF ti LP 60 2- 7- 00 CA 34 LE ve RO 79 20 20 RE 9 ET EX 81 09 09 R 3 PH SO AR HE D MA NR DR CY Y 50 LL 0 C MG TA B DO 62 03 04 01 60 30 ME 34 NO Ac CU 58 -0 -2 .0 D 34 RF ti SA 40 4- 3- 00 CA 30 LE ve TE 68 20 20 RE 0 ET 30 09 09 R SO 1 PH DI AR HE UM MA NR CY Y 10 0 LL MG C SO FT GE L 00 03 04 01 30 30 ME 34 NO Ac 00 -1 -2 .0 D 70 RF ti 24 8- 3- 00 CA 49 LE ve 42 20 20 RE 3 ET 03 09 09 R 3 PH AR HE MA NR CY Y LL C 00 04 04 00 30 30 ME [...] NR CY Y LL C 00 03 03 00 30 30 ME [...] LL MG C SO FT GE L 50 02 03 00 30 30 ME [...] CY Y LL C DO 62 12 02 02 60 30 ME 32 NO Ac CU 58 -0 -1 .0 D 01 RF ti SA 40 1- 2- 00 CA 50 LE ve TE 68 20 20 RE 5 ET 30 08 09 R SO 1 PH DI AR HE UM MA NR CY Y 10 0 LL MG C SO FT GE L DI 62 09 02 05 60 30 ME 30 NO Ac VA 75 -0 -1 .0 D 04 RF ti LP 60 4- 2- 00 CA 26 LE ve RO 79 20 20 RE 5 ET EX 81 08 09 R 3 PH SO AR HE D MA NR DR CY Y 50 LL 0 C MG TA B DI 62 09 01 05 30 30 [...] LL C DI 62 09 01 04 60 30 ME 30 NO Ac VA 75 -0 -1 .0 D 04 RF ti LP 60 4- 5- 00 CA 26 LE ve RO 79 20 20 RE 5 ET EX 81 08 09 R 3 PH SO AR HE D MA NR DR CY Y 50 LL 0 C MG TA B DO 62 12 01 01 60 30 ME 32 NO Ac CU 58 -0 -1 .0 D 01 RF ti SA 40 1- 5- 00 CA 50 LE ve TE 68 20 20 RE 5 ET 30 08 09 R SO 1 PH DI AR HE UM MA NR CY Y 10 0 LL MG C SO FT GE L 50 09 01 04 30 30 ME 30 NO Ac 11 -0 -0 .0 D 04 RF ti 10 4- 1- 00 CA 27 LE ve 39 20 20 RE 3 ET 40 08 09 R 1 PH AR HE MA NR CY Y LL C 00 09 01 03 30 30 ME [...] D 01 RF ti SA 40 1- 8- 00 CA 50 LE ve TE 68 20 20 RE 5 ET 30 08 08 R SO 1 PH DI AR HE UM MA NR CY Y 10 0 LL MG C SO FT GE L DI 62 09 12 03 60 30 ME 30 NO Ac VA 75 -0 -1 .0 D 04 RF ti LP 60 4- 8- 00 CA 26 LE ve RO 79 20 20 RE 5 ET EX 81 08 08 R 3 PH SO AR HE D MA NR DR CY Y 50 LL 0 C MG TA B 00 09 12 02 30 30 ME 30 NO Ac 00 -2 -0 .0 D 04 RF ti 24 4- 4- 00 CA 27 LE ve 42 20 20 RE 2 ET 03 08 08 R 3 PH AR HE MA NR CY Y LL C DI 62 09 12 03 30 30 [...] D 04 RF ti 10 4- 4- 00 CA 27 LE ve 39 20 20 RE 3 ET 40 08 08 R 1 PH AR HE MA NR CY Y LL C 00 09 11 01 30 [...] NR UL CY Y E LL C 50 09 11 02 30 [...] C MG TA B DI 62 09 10 01 60 30 [...] .0 D 04 RF ti 10 4- 9- 00 CA 27 LE ve 39 20 20 RE 3 ET 40 08 08 R 1 PH AR HE MA NR CY Y LL C 50 09 10 01 30 30 ME 30 NO Ac 11 -0 -0 .0 D 04 RF ti 10 4 9 00 CA 27 LE ve 39 20 20 RE 3 ET 40 08 08 R 1 PH AR HE MA NR CY Y LL C DO 00 09 10 01 60 30 ME 30 NO Ac K 90 -0 -0 .0 D 04 RF ti 10 42 4- 9- 00 CA 26 LE ve 0 24 20 20 RE 3 ET MG 46 08 08 R 1 PH CA AR HE PS MA NR UL CY Y E LL C ZY 00 01 03 00 15 15 PA 36 No Ac IL 00 -0 -2 .0 UL 41 t ti EX 24 2- 4- 00 J 96 Av ve A 42 20 20 ai 20 03 08 08 RU la 0 WE bl MG e IN TA C BL DB ET A RU WE FA VA L DE 00 01 03 00 30 15 PA 36 No Ac PA 07 -0 -2 .0 UL 40 t ti KO 47 2- 4- 00 J 85 Av ve TE 12 20 20 ai 61 08 08 RU la ER 3 WE bl e 50 IN 0 C MG DB A TA RU BL WE ET FA VA L Procedures Procedure DOS Code Location Performer Comment [id number] COMBINED COMBINED N 7 PHYSICIAN PHYSICIAN GLYCOSYLA S LAB S LAB ABDI A1C CLOSED [id number] [facility] TEMPOROMA NDIBULAR DISLOCATI ON Encounters Encounter Start End Date Code Location Performer Type Date CRITICAL [address] REGIONAL - 2 2 MED [facility] - 2 2 [facility] - 1 1 [facility] T
--- OUTSIDE RECORDS SUMMARY | 2017-10-16 17:02 | External Medical Summary Rpt | CCD ---
Author Author , LANCE Organization LANCE Address Unknown Phone [email or web address] Care Team Providers Care Tutor Name Role Phone [facility] Unavailable Unavailable NCE SERV, [facility] Unavailable Unavailable [facility], [facility] [place], N[place] Unavailable Unavailable [facility] Unavailable Unavailable PHARMACY, [facility] MORGAN SEKOU, MORGAN Unavailable Unavailable [facility], Unavailable [facility]available [facility] Unavailable Unavailable [place], [facility] Unavailable Unavailable LAB, [facility] Unavailable Unavailable LAB, [email or web address] Unavailable Unavailable PHARMACY,, [email or web address] PHARMACY, [facility] R[facility] [employer] DEPT, Unavailable Unavailable [facility] DEPT [facility] # [id number], Unavailable Unavailable [facility] # [id number] [facility] Unavailable Unavailable LLC, [facility] EMMICK ROS, EMMICK Unavailable Unavailable [facility] Unavailable Unavailable [facility], [facility] Unavailable Unavailable [facility]OCI[facility], [facility] Unavailable Unavailable [facility]SP[facility]ATION [facility], [facility], HAPPY Unavailable Unavailable FEET [facility] Unavailable Unavailable INC, [facility] Unavailable [facility]available SERVICE, [facility] Unavailable Unavailable DEPT, [facility], [facility] Unavailable Unavailable [facility] TO Unavailable Unavailable [facility], [facility] Un[facility] Unavailable [facility], [facility] Un[facility], [facility] Unavailable Unavailable [facility], [facility] Unavailable Unavailable H D, [facility] Unavailable Unavailable [facility] Unavailable Unavailable IMAGING, [facility] Unavailable Unavailable LLC, [facility] Unavailable Unavailable [facility], [facility] Unavailable Unavailable SERVICE I, [facility] SERV[facility] I Glenn STEWART, Unavailable Unavailable Glenn STEWART ROSIO TAWNYA, ROSIO TAWNYA Unavailable Unavailable [facility] Unavailable Unavailable PHYSICIANS, [facility], [facility] HEATER OPERATOR HELPER Unavailable Unavailable [facility], LISA [place] [facility] HE[facility] OPERATOR HELPER [facility] Unavailable Unavailable [facility], [facility], Unavailable Unavailable [facility] Unavailable Unavailable INCORPORAT, [facility] Unavailable Unavailable [facility], [facility], Unavailable Unavailable [facility] Unavailable CARE, [facility] SCIFRES, SCIFRES Unavailable Unavailable [facility], [facility]available [facility] Unavailable Unavailable [facility]ICIANS, [facility] Unavailable Unavailable [facility], [facility], Unavailable Unavailable [facility], [facility] Unavailable Unavailable [facility] CL[facility]IC [facility] # Unavailable Unavailable [id number], [facility] # [id number] [id number] # Unavailable Unavailable [id number], [id number] # [id number] [facility] Unavailable Unavailable [facility] Unavailable Unavailable [facility], [facility] Purpose Continuity of Care Document - 12-08-2007 through 2016 Problems Code Diagnosis DOS Provider Status R7301 IMPAIRED 09-18-2017 [facility] GLUCOSE LAB B351 TINEA 08-28-2017 [facility] UNGUIUM E1140 TYPE 2 DM 08-28-2017 [facility] WITH DIABETIC NEUROPATHY UNSPECIFIED U55170 PAIN IN 08-28-2017 COM[facility] RIGHT TOES [id number] PAIN IN 08-28-2017 COM[facility] LEFT TOES R300 [...] ALTERED 07-01-2017 [facility] STATUS OF [facility] UNSPECIFIED R55 SYNCOPE AND 07-01-2017 [facility] COLLAPSE [facility] Z008 ENCOUNTER 07-01-2017 ST [facility] EXAMINATION H5213 MYOPIA 05-02-2017 [facility] BILATERAL H524 PRESBYOPIA 05-02-2017 SCIF[facility] E119 TYPE 2 03-02-2017 [facility] StudyCloud WITHOUT COMPLICATIO NS D649 ANEMIA 12-12-2016 [facility] UNSPECIFIED PHYSICIANS [place] Z125 ENCOUNTER 12-12-2016 [facility] SCREENING [facility] MALIGNANT LA NEOPLASM PROSTATE R7989 OTHER SPEC 10-19-2016 [facility] ABNORMAL [facility]AN FINDINGS [facility] BLOOD CHEMISTRY Z23 ENCOUNTER 09-03-2016 [facility] IMMUNIZATIO DEPT N [id number] OTHER LONG 08-15-2016 [facility] CURRENT DRUG THERAPY W50212 TYPE 2 05-04-2016 [facility] W/HYPOGLYCE FER[facility]O W/O COMA R4781 SLURRED 05-04-2016 [facility] SERVICE H5203 HYPERMETROP 04-24-2016 MORGAN SEKOU IA BILATERAL M86201 REGULAR 04-24-2016 MORGAN SEKOU ASTIGMATISM BILATERAL E039 HYPOTHYROID 09-29-2015 [facility] UNSPECIFIED N400 BENIGN 09-29-2015 [facility] HYPERPLASIA WO LW URIN TRACT SX Z5181 ENCOUNTER 09-29-2015 [facility] THERAPEUTIC DRUG LEVEL MONITORING 33164 DIAB W/O 06-12-2015 [facility] MENTION COMP TYPE II/UNS TYPE UNCNTRL V701 GENERAL 06-09-2015 [facility] EXAMINATION PHYSICIANS, REQUESTED AUTHORITY V5869 LONG-TERM 06-08-2015 [facility] (CURRENT) [facility] USE OF OTHER MEDICATIONS 36219 DIAB W/O 03-08-2015 [facility] COMP TYPE DIAGNOSTICS II/UNS NOT INCORPORAT STATED UNCNTRL 4011 ESSENTIAL 03-08-2015 [facility] HYPERTENSIO [facility]ST[facility] N, BENIGN INCORPORAT V7644 SPECIAL 03-08-2015 [facility] MALIGNANT INCORPORAT NEOPLASM OF PROSTATE 08123 NUCLEAR 03-03-2015 EMMICK ROS SCLEROSIS 3670 HYPERMETROP 03-03-2015 EMMICK ROS IA 3674 PRESBYOPIA 03-03-2015 EMM[facility] ROS 90219 DIAB W/OTH 03-01-2015 ROSIO TAWNYA MANIFESTS TYPE II/UNS TYPE UNCNTRL 56284 DIARRHEA 03-01-2015 ROSIO TAWNYA 96355 UNSPECIFIED 09-29-2014 [facility] DUE TO VIRUSES 90733 HORDEOLUM 09-26-2014 [facility] 84367 DO LOC 08-17-2014 ROSIO TAWNYA HYPERPLASIA PROS W/O UR OBST & OTH LUTS 7241 PAIN IN 08-17-2014 [facility] SE 7242 LUMBAGO 08-17-2014 ROSIO TAWNYA 55208 UNSPECIFIED 03-02-2014 ROSIO TAWNYA URINARY INCONTINENC E 34627 POLYURIA 03-02-2014 ROSIO TAWNYA 41991 REGULAR 08-25-2013 E[facility] ASTIGMATISM 27310 REFRACTIVE 08-25-2013 EMM[facility] ROS AMBLYOPIA 08443 08-25-2013 [facility] V6709 FOLLOW-UP [...] CLINIC K ACC OTH STATNRY OBJ W/FALL 32167 OTHER 11-28-2012 [facility] 7224 DEGENERATIO 11-27-2012 [facility] CERVICAL IMAGING INTERVERTEB RAL DISC 20743 DEGEN 11-27-2012 [facility] LUMBAR/LUMB [facility] OSACRAL IMAGING INTERVERTEB RAL DISC 7231 CERVICALGIA 11-27-2012 [facility] 7245 UNSPECIFIED 11-27-2012 [facility] BACKACHE [facility]AG[facility] 9222 CONTUSION 11-27-2012 [facility] OF MED CTR ABDOMINAL WALL 9599 INJURY 11-27-2012 MEDICAL OTHER AND CENTER AMB UNSPECIFIED SERVICE I UNSPECIFIED SITE E8859 FALL FROM 11-27-2012 MEDICAL OTHER CENTER AMB SLIPPING SERVICE I TRIPPING OR STUMBLING V741 SCREENING 08-19-2012 [facility] D PULMONARY TUBERCULOSI S 5180 PULMONARY 07-11-2012 [facility] COLLAPSE SERV [facility] 7220 DISPLCMT 07-11-2012 [facility]ICAL CERV SERV INTERVERT [facility] DISC WITHOUT MYELOPATHY 8020 NASAL 07-11-2012 [place] [facility], SERV CLOSED [facility] FRACTURE 57706 INJURY OF 07-11-2012 [place] [facility] NECK OTHER [facility] AND UNSPECIFIED 84277 OTHER 07-11-2012 [place] [facility] IN[facility] OF SERV CHEST WALL F[facility] E9889 INJURY 07-11-2012 [place] [facility] UNSPEC SERV MEANS UNDET [facility]OUNDAT[facility] ACC/PRPOSLY INFLICTED 34939 OTHER 04-05-2012 [facility] OF AMBULANCE CONSCIOUSNE TAXIN SS 7813 LACK OF 04-05-2012 [facility] COORDINATIO CO N AMBULANCE TAXIN 460 ACUTE 10-15-[address] [facility] ITIS 5269 UNSPECIFIED 10-12-2011 [facility] DISEASE OF CO THE JAWS AMBULANCE TAXIN 41873 OTHER 10-02-2011 [facility] SPECIFIED [facility] INC DISORDERS V5489 OTHER 10-02-2011 [facility] 2724 OTHER AND 08-28-2011 COMBINED UNSPECIFIED PHYSICIANS LA HYPERLIPIDE FERNANDO 6019 UNSPECIFIED 08-28-2011 [facility] PROSTATITIS LA 318 OTHER 05-24-2011 JOUR[facility] TO SPECIFIED INDEPENDENT INTELLECTUA ANDREEIN L DISABILITIE S 2761 HYPOSMOLALI 05-03-2011 [facility] AND/OR [facility] A 31025 UNSPEC 05-03-2011 [place] EPILEPSY PRIMARY WITHOUT CARE RURAL MENTION INTRACT EPILEPSY 8951 TRAUMATIC 05-03-2011 [facility] [place] [facility] AMBULA NCE COMPLICATED SERV 0091 COLITIS 11-09-2009 [facility] TROENTERIT INF ORIGIN 295 SCHIZOPHREN 12-08-2007 [facility] [place] DISORDERS 298 OTHER 12-08-2007 [facility] [place] PSYCHOSES 7801 HALLUCINATI 12-08-2007 [facility] FIRE DEPT Medications Na ND Rx Da [...] 30 6- 0- 00 15 CA ve ND 31 20 20 01 RE DE 10 17 17 94 2 1 61 PH AR MG MA CY CA PS UL E LI 16 09 10 30 30 00 ME Ac SI 72 -2 -2 .0 00 D ti NO 90 5- 0- 00 14 CA ve HI 37 20 20 99 RE IL 71 [...] 20 5- 0- 00 14 CA ve HI 00 20 20 99 RE AM 70 [...] 20 8- 2- 00 14 CA ve HI 00 20 20 85 RE AM 70 [...] 70 8- 2- 00 14 CA ve HI 35 20 20 85 RE IL 31 [...] 20 2- 4- 00 14 CA ve HI 00 20 20 56 RE AM 70 [...] 20 3- 7- 00 14 CA ve HI 00 20 20 37 RE AM 70 [...] 20 5- 9- 00 14 CA ve HI 00 20 20 19 RE AM 70 [...] 20 7- 2- 00 14 CA ve HI 00 20 20 06 RE AM 70 [...] 20 1- 4- 00 13 CA ve HI 00 20 20 91 RE AM 70 [...] 20 7- 4- 00 13 CA ve ND 00 20 20 81 RE N 89 [...] 20 0- 7- 00 13 CA ve HI 00 20 20 77 RE AM 70 [...] 20 2- 3- 00 13 CA ve ND 00 20 20 52 RE N 89 [...] D ti OR 20 13 CA ve ND 00 20 20 68 RE N 89 [...] ti LO 20 7 13 CA ve HI 00 20 20 64 RE AM 70 [...] 20 5- 7- 00 13 CA ve ND 00 20 20 40 RE N 89 [...] 20 5- 7- 00 13 CA ve HI 00 20 20 40 RE AM 70 [...] 20 7- 4- 00 CA 08 ve HI 05 20 20 RE 89 DE AM [...] G 69 20 20 RE 37 DE ND 61 15 15 LAUREN X 9 PH [...] RA SA H FE FA A TY ND LY 28 G PH LA AR NC MA ET CY S , HI 00 04 06 0 20 14 ME [...] RA CE AR H TA MA A ND CY NO PH LL EN C GL 5- 32 GO 5 W CI 00 06 06 0 70 7 ME 31 ON Ac TA 90 -1 -1 .0 D 02 AN ti LO 46 7- 7- 00 CA 08 ve HI 08 20 20 RE 83 DE AM [...] -2 -1 .0 D 00 AN ti ND 96 3- 4- 00 CA 30 ve [...] 60 3- 1- 00 CA 97 ve ND 17 20 20 0 RE 44 DE [...] 20 5- 5- 00 CA 66 ve HI 05 20 20 RE 91 DE AM [...] CY ET LL C GL GO W HI 00 04 06 0 20 14 ME [...] -2 -0 .0 D 96 AN ti ND 96 3- 2- 00 CA 06 ve [...] RA TR H A FA A TE ND ST LY ST PH RI AR PS MA CY , LE 00 01 05 0 30 15 ME 30 ON Ac VE 16 -2 -1 .0 D 94 AN ti ND 96 3- 8- 00 CA 52 ve [...] 60 3- 3- 00 CA 52 ve ND 17 20 20 0 RE 86 DE N 80 15 15 LAUREN HC 5 PH RA L AR H ER MA A CY 50 0 LL MG C GL TA BL GO ET W LO 00 04 05 0 30 5 ME 30 ON Ac PE 09 -0 -1 0. D 93 AN ti RA 30 1- 2- 00 CA 19 ve ND 31 20 20 0 RE 01 DE DE 10 15 15 LARUEN 2 5 PH RA AR H MG MA A CY CA PS LL UL C E GL GO W CI 65 12 05 0 30 30 ME 30 ON Ac TA 16 -1 -0 0. D 91 AN ti LO 20 5- 8- 00 CA 99 ve HI 05 20 20 0 RE 01 DE [...] -2 -0 .0 D 91 AN ti ND 96 3- 6- 00 CA 80 ve [...] RA SA H FE FA A TY ND LY 28 G PH LA AR NC [...] 60 1- 9- 00 CA 39 ve ND 17 20 20 0 RE 95 DE [...] -2 -1 .0 D 86 AN ti ND 96 3- 4- 00 CA 42 ve [...] 20 5- 0- 00 CA 88 ve HI 05 20 20 0 RE 79 DE [...] RA TR H A FA A TE ND ST LY ST PH RI AR PS MA CY , LE 00 01 04 0 30 13 ME 30 ON Ac VE 16 -2 -0 .0 D 66 AN ti ND 96 3- 4- 00 CA 69 ve [...] 60 1- 1- 00 CA 39 ve ND 17 20 20 0 RE 56 DE [...] RA PE H N FA A NE ND ED LY LE PH 31 AR GX [...] 60 1- 9- 00 CA 45 ve ND 17 20 20 0 RE 75 DE [...] RA TR H A FA A TE ND ST LY ST PH RI AR PS MA CY , EA 08 02 03 11 10 50 CO 51 ON Ac SY 49 -2 -1 00 MM 17 AN ti 62 0- 6- .0 ON 75 ve TO 81 20 20 00 WE DE UC 80 15 15 AL LAUREN H 1 TH RA SA H FE FA A TY ND LY 28 G PH LA AR NC MA ET CY S , CI 65 12 03 0 30 30 ME 30 ON Ac TA 16 -1 -1 0. D 77 AN ti LO 20 5- 2- 00 CA 77 ve HI 05 20 20 0 RE 04 DE [...] 30 1- 4- 00 CA 55 ve ND 31 20 20 0 RE 32 DE DE 10 14 15 LAUREN 2 5 PH RA AR H MG MA A CY CA PS LL UL C E GL GO W HI 00 04 02 0 20 14 ME [...] G 69 20 20 0 WE DE ND 61 15 15 AL LAUREN X 9 TH RA 70 H -3 FA A 0 ND FL LY EX PE PH N AR [...] RA TR H A FA A TE ND ST LY ST PH RI AR PS [...] 60 1- 8- .0 CA 34 ve ND 17 20 20 00 RE 63 DE N 80 15 15 LAUREN HC 5 PH RA L AR H ER MA A CY 50 0 LL MG C GL TA BL GO ET W CI 65 12 02 0 30 30 ME 30 ON Ac TA 16 -1 -1 0. D 70 AN ti LO 20 5- 1- 00 CA 47 ve HI 05 20 20 0 RE 40 DE [...] G 69 20 20 RE 99 DE ND 61 15 15 LAUREN X 9 PH [...] RA PE H N FA A NE ND ED LY LE PH 31 AR GX [...] -2 -2 0. MM 11 AN ti ND 96 1- 3- 00 ON 63 ve R 43 20 20 0 WE DE FL 81 15 15 AL LAUREN EX 0 TH RA TO H UC FA A H ND 10 LY 0 UN PH IT AR S/ MA ML CY , ME 60 01 01 0 12 30 ME 30 ON Ac TF 50 -2 -2 00 D 66 AN ti OR 50 1- 1- .0 CA 20 ve ND 26 20 20 00 RE 13 DE [...] TH RA TR H A2 FA A ND GL LY UC OS PH E AR SY MA ST CY , ON 53 01 01 0 50 25 CO 51 ON Ac ET 88 -1 -1 0. MM 09 AN ti OU 50 6- 6- 00 ON 86 ve CH 24 20 20 0 WE DE 45 15 15 AL LAUREN UL 0 TH RA TR H A FA A TE ND ST LY ST PH RI AR PS MA CY , EA 08 01 01 0 10 50 CO 51 ON Ac SY 49 -1 -1 00 MM 09 AN ti 62 6- 6- .0 ON 88 ve TO 81 20 20 00 WE DE UC 80 15 15 AL LAUREN H 1 TH RA SA H FE FA A TY ND LY 28 G PH LA AR NC [...] 50 5- 5- 00 CA 89 ve ND 26 20 20 RE 01 DE N 00 15 15 LAUREN HC 2 PH RA L AR H ER MA A CY 50 0 LL MG C GL TA BL GO ET W ME 60 01 01 0 20 1 ME 30 ON Ac TF 50 -1 -1 .0 D 64 AN ti OR 50 4- 4- 00 CA 86 ve ND 26 20 20 RE 60 DE N 00 15 15 LAUREN HC 2 PH RA L AR H ER MA A CY 50 0 LL MG C GL TA BL GO ET W CI 65 12 01 0 30 30 ME 30 ON Ac TA 16 -1 -1 0. D 62 AN ti LO 20 5- 2- 00 CA 74 ve HI 05 20 20 0 RE 47 DE [...] 0 10 5 ME 30 ON Ac ND 00 -2 -2 0. D 59 AN [...] 20 5- 5- 00 CA 36 ve HI 05 20 20 0 RE 06 DE [...] 20 3- 8- 00 CA 54 ve HI 05 20 20 RE 47 DE AM [...] RA CE AR H TA MA A ND CY NO PH LL EN C GL [...] 20 3- 1- 00 CA 56 ve HI 05 20 20 0 RE 66 DE [...] 20 3- 3- 00 CA 39 ve HI 05 20 20 0 RE 80 DE [...] RA CE AR H TA MA A ND CY NO PH LL EN C GL [...] 20 3- 4- 00 CA 93 ve HI 05 20 20 0 RE 40 DE AM 45 14 14 LAUREN 0 PH RA HB AR H R MA A 40 CY MG LL C TA GL BL ET GO W LO 00 04 09 0 30 5 ME 30 ON Ac PE 09 -0 -0 0. D 30 AN ti RA 30 1- 2- 00 CA 07 ve ND 31 20 20 0 RE 61 DE [...] 20 3- 8- 00 CA 05 ve HI 05 20 20 0 RE 62 DE [...] 20 3- 7- 00 CA 28 ve HI 05 20 20 0 RE 28 DE AM 45 14 14 LAUREN 0 PH RA HB AR H R MA A 40 CY MG LL C TA GL BL ET GO W LO 51 04 06 0 30 5 ME 30 ON Ac PE 07 -0 -1 0. D 10 AN ti RA 90 1- 6- 00 CA 69 ve ND 69 20 20 0 RE 52 DE [...] 20 3- 0- 00 CA 48 ve HI 05 20 20 0 RE 62 DE [...] 20 3- 2- 00 CA 06 ve HI 05 20 20 0 RE 8 DE AM 45 13 14 LAUREN 0 PH RA HB AR H R MA A 40 CY MG LL C TA GL BL ET GO W ND 00 04 04 0 35 15 ME [...] 20 3- 4- 00 CA 18 ve HI 05 20 20 0 RE 0 DE [...] 40 3- 5- 00 CA 68 ve HI 50 20 20 0 RE 6 DE AM 91 13 14 LAUREN 3 PH RA HB AR H R MA A 40 CY MG LL C TA GL BL ET GO W LO 51 04 02 0 30 5 ME 24 ON Ac PE 07 -0 -2 0. D 57 AN ti RA 90 1- 4- 00 CA 16 ve ND 69 20 20 0 RE 1 DE [...] TA C BL GL ET GO W ND 00 04 02 0 35 15 ME [...] 40 3- 3- 00 CA 06 ve HI 50 20 20 0 RE 4 DE [...] C MG GL TA GO B W HI 00 04 01 0 20 14 ME [...] 40 3- 3- 00 CA 39 ve HI 50 20 20 0 RE 7 DE [...] BL LL ET C GL GO W ND 00 04 12 0 35 15 ME [...] 40 3- 5- 00 CA 47 ve HI 50 20 20 0 RE 2 DE [...] 40 3- 6- 00 CA 72 ve HI 50 20 20 0 RE 8 DE [...] 20 3- 8- 00 CA 30 ve HI 05 20 20 0 RE 8 DE AM 45 13 13 LAUREN 0 PH RA HB AR H R MA A 40 CY MG LL C TA GL BL ET GO W ND 00 04 09 0 35 15 ME [...] 20 3- 6- 00 CA 19 ve HI 05 20 20 0 RE 9 DE [...] 34 4- 4- 00 CA 62 ve HI 59 20 20 0 RE 6 DE [...] 40 3- 8- 00 CA 65 ve HI 50 20 20 0 RE 3 DE [...] 20 3- 9- 00 CA 01 ve HI 05 20 20 0 RE 8 DE [...] 40 3- 0- 00 CA 44 ve HI 50 20 20 0 RE 0 DE [...] TA C BL GL ET GO W HI 60 04 05 0 12 5 ME [...] ME NT LL C GL GO W HI 60 04 05 0 12 5 ME [...] 40 3- 3- 00 CA 96 ve HI 50 20 20 0 RE 8 DE [...] RE 9 DE N 22 13 13 LAURNE 2% 2 PH RA AR H OI [...] 46 1- 9- 00 CA 40 ve HI 08 20 20 0 RE 8 DE [...] 90 1- 1- 00 CA 80 ve ND 69 20 20 0 RE 9 DE [...] TA C BL GL ET GO W HI 45 04 04 0 30 3 ME [...] 46 1- 1- 00 CA 79 ve HI 08 20 20 0 RE 2 DE [...] 2- 3- 00 CA 12 LE ve HI 02 20 20 0 RE 9 ET IL 50 11 12 R 1 PH 2. AR HE 5 MA NR MG CY Y TA LL BL C ET ME 62 11 05 0 24 12 ME 79 NO Ac TF 58 -0 -1 0. D 62 RF ti OR 40 7- 1- 00 CA 13 LE ve ND 45 20 20 0 RE 0 ET [...] 2- 6- 00 CA 10 LE ve HI 02 20 20 0 RE 8 ET [...] 7- 3- 00 CA 70 LE ve ND 45 20 20 0 RE 0 ET [...] 7- 6- 00 CA 98 LE ve ND 45 20 20 0 RE 5 ET [...] 2- 4- 00 CA 02 LE ve HI 02 20 20 0 RE 9 ET [...] 7- 5- 00 CA 52 LE ve ND 45 20 20 0 RE 9 ET N 20 11 12 R HC 1 PH L AR HE 1, MA NR 00 CY Y 0 MG LL C TA BL ET LI 00 12 02 0 30 0 ME 75 NO Ac SI 18 -1 -1 0. D 66 RF ti NO 50 2- 0- 00 CA 53 LE ve HI 02 20 20 0 RE 6 ET [...] 7- 3- 00 CA 88 LE ve ND 03 20 20 0 RE 4 ET [...] 2- 3- 00 CA 89 LE ve HI 02 20 20 0 RE 0 ET [...] 7- 6- 00 CA 37 LE ve ND 03 20 20 RE 9 ET N [...] 2- 2- 00 CA 67 LE ve HI 02 20 20 RE ET IL 50 [...] 7- 6- 00 CA 15 LE ve ND 03 20 20 RE ET N 01 11 11 R HC 0 PH L AR HE 1, MA NR 00 CY Y 0 MG LL C TA BL ET LI 00 11 11 0 30 30 ME 16 NO Ac SI 18 -0 -1 .0 D 74 RF ti NO 50 7- 4- 00 CA 19 LE ve HI 02 20 20 RE ET IL 50 [...] 7- 9- 00 CA 76 LE ve HI 37 20 20 RE ET AM 30 11 11 R 1 PH HB AR HE R MA NR 40 CY Y MG LL C TA BL ET ME 68 09 10 3 60 30 ME 59 NO Ac TF 38 -1 -1 .0 D 43 RF ti OR 20 6- 4- 00 CA 62 LE ve ND 03 20 20 RE 5 ET N [...] 3- 3- 00 CA 01 S ve HI 37 20 20 RE 4 LA AM [...] 6- 2- 00 CA 63 LE ve HI 02 20 20 RE 3 ET IL [...] 6- 6- 00 CA 62 LE ve ND 03 20 20 RE 5 ET N [...] 6- 6- 00 CA 63 LE ve HI 02 20 20 RE 3 ET IL [...] 4- 4- 00 NG 74 SO ve HI 02 20 20 TO 2 N IL [...] 4- 4- 00 NG 74 SO ve ND 03 20 20 TO 5 N N [...] 1 30 30 WA 71 RO Ac HI 00 -2 -2 .0 L- 00 BE [...] 8- 9- 00 MA 71 RT ve ND 05 20 20 RT 1 S N [...] 07 1 14 14 76 GR Ac HI 00 -1 -1 .0 86 OS ti [...] 20 6- 8- 00 83 H ve ND 03 20 20 SH N 00 11 [...] 6 30 30 CO 60 PI Ac HI 00 -0 -0 .0 MARINA 67 NG [...] 40 3- 6- 00 MB 98 ve ND 47 20 20 IA DE N 45 [...] 6- 1- 00 PH 49 ER ve ND 03 20 20 AR RY N 01 [...] 0 30 30 CV 53 GR Ac HI 00 -1 -1 .0 S 52 OS [...] 0 20 5 CV 53 AA Ac HI 00 -1 -1 .0 S 53 RO [...] 5- 5- 00 CA 30 LE ve ND 03 20 20 RE 4 ET N [...] RE 2 ZA 70 11 11 KENDELL HI 1 PH HN IN AR G E [...] NR BL CY Y ET LL C HI 68 11 03 3 18 3 ME [...] 5- 5- 00 CA 30 LE ve ND 03 20 20 RE 4 ET N [...] 6- 6- 00 CA 03 LE ve ND 25 20 20 RE 7 ET N [...] OL LL 33 C 50 PO WD HI 68 11 01 3 18 3 ME [...] HE MA NR CY Y LL C HI 68 11 11 3 18 3 ME [...] HE MA NR CY Y LL C HI 68 12 12 00 20 3 ME [...] 00 15 15 PA 36 No Ac HI 00 -0 -2 .0 UL 41 t ti EX 24 2- 4- 00 J 96 Av ve A 42 20 20 ai 20 03 08 08 RU la 0 WE bl MG e IN TA C BL DB ET A RU WE FA ND L DE 00 01 03 00 30 15 PA 36 No Ac PA 07 -0 -2 .0 UL 40 t ti KO 47 2- 4- 00 J 85 Av ve TE 12 20 20 ai 61 08 08 RU la ER 3 WE bl e 50 IN 0 C MG DB A TA RU BL WE ET FA ND L Procedures Procedure DOS Code Location Performer Comment HEMOGLOBI [id number] COMBINED COMBINED N 7 PHYSICIAN PHYSICIAN GLYCOSYLA S LAB S LAB ABDI A1C CLOSED 7693 [facility] REDUCTION 1 [facility] TEMPOROMA NDIBULAR DISLOCATI ON Encounters Encounter Start End Date Code Location Performer Type Date CRITICAL [address] REGIONAL - 2 2 MED [facility] - 2 2 [facility] S[facility] - 1 1 [facility] T
--- OUTSIDE RECORDS SUMMARY | 2017-10-16 17:10 | External Medical Summary Rpt | CCD ---
Demographics Preferred Language Chinese Marital Status Unknown Christianity Affiliation Unknown Race Unknown Ethnic Group Unknown Author Author , LANCE LUCAS Address Unknown Phone Immunization No patient found.
--- OUTSIDE RECORDS SUMMARY | 2017-10-16 17:10 | External Medical Summary Rpt | CCD ---
Demographics Preferred Language Albanian Marital Status Unknown Buddhism Affiliation Unknown Race Unknown Ethnic Group Unknown Author Author , LANCE LUCAS Address Unknown Phone Immunization No patient found.
[2017-10-16 17:52] VITALS: BP 118/75
== END 2017-10-16 17:53 | disposition home or self-care (01) ==
LOC: ER 16:05
PROVIDERS: Emergency Medicine
DX: R55 Syncope and collapse (principal); Z79.82 Long term (current) use of aspirin; I10 Essential (primary) hypertension; E78.5 Hyperlipidemia, unspecified; E11.9 Type 2 diabetes mellitus without complications; F17.298 Nicotine dependence, other tobacco product, with other nicotine-induced disorders

== ENCOUNTER → 2017-11-04 | Outpatient (CLI) | payer MEDICAID ==
--- NOTE | 2017-11-04 22:25 | RADIOLOGY REPORT PS360 ---
PROCEDURE: 2-D M-mode and color Doppler study INDICATIONS FOR THE TEST: Chest pain COPD Heart Murmur Tobacco Smoking Palpitations Fatigue Syncope Edema Hypertension Diabetes Mellitus Rheumatic Fever SOB NEVAREZ Obesity Hyperlipidemia Family History HD Additional History DIZZINESS PATIENT INFORMATION HEIGHT: 68 WEIGHT:244 GENDER: Male B/P:110/70 2-D/M-MODE INTERPRETATION: 2-D MEASUREMENTS OBSERVED VALUES IN CMS Right Ventricular Dimension (RVDd) 3.1 Interventricular Septum (Thickness)(IVsd) 1.4 Left Ventricular Internal Dimensions(LVIDd) 5.3 Left Ventricular Posterior Wall (Thickness)(LVPWd) 1.0 Aortic Root 3.3 Aortic Cusp Separation 2.6 Left Atrial Dimensions (LAD) 4.0 2D 1. Left atrium is upper limit of the normal size, left ventricle is normal size, there is no concentric left ventricular hypertrophy, visually estimated ejection fraction 55% with no obvious regional wall motion abnormality. 2. The right atrium and right ventricle are normal size and contractility. 3. The aortic valve is minimally thickened and fibrosed. 4. The mitral valve leaflets are minimally thickened. 5. The tricuspid valve is structurally normal. 6. The pulmonic valve is poorly visualized. 7. No significant pericardial effusion noted. DOPPLER INTERROGATION: Doppler interrogation of the aortic, mitral and tricuspid valvular presence of mild mitral and tricuspid regurgitation, tricuspid and jet velocity insufficient for calculation of the right ventricular systolic pressure, diastolic parameters are inconclusive. CONCLUSION: 1. Normal left ventricular size, preserved left ventricular systolic function, visually estimated ejection fraction 55% with no obvious regional wall motion abnormality. Diastolic parameters are inconclusive. 2. Mild mitral and tricuspid regurgitation. 3. No significant pericardial effusion noted.
== END ==
LOC: RT 08:09
DX: R42 Dizziness and giddiness (principal); R55 Syncope and collapse